=== PATIENT | female | born 1960 | race Caucasian/White ===

== ENCOUNTER 2024-11-26 18:15 | Inpatient (IN) | payer MEDICARE, BC, SELFPAY ==
[2024-11-26] VITALS (8 sets, daily range): BP systolic 125–162; BP diastolic 75–92; BMI 15.9; BMI 14.7
--- NOTE | 2024-11-26 13:42 | ED.GENMED ---
History of Present Illness
General
Chief Complaint: Breathing Problem
Source: patient and family
Time Seen by Provider: 11/26/24 13:23
History of Present Illness
History of Present Illness:
64-year-old female who presents emergency department with reports of her breathing being 'off' for the last week or so. Patient has a chronic cough which is occasionally productive, no hemoptysis. She also notes a slight sore throat but denies ear
pain, rhinorrhea, fever, chills. She also notes the recent gradual development of difficulty swallowing such that she is eating her food while also drinking water to help swallow. She denies abdominal pain, nausea, vomiting, back pain. She does
note that she feels generally weak. Patient lives in the [facility], and a neighbor reportedly called patient's sister who lives in this area stating that the patient 'looks worse'. For this reason, patient was brought to the [facility]
last night. Given concerns regarding her breathing, she was first brought to an urgent care today and then referred to the emergency department. Patient describes a longstanding history of smoking, and describes a nicotine patch as 'bullshit'.
She is very reluctant/refusing to stay in the hospital.
Past History
Past History
ED Past Medical History: CVA (TIA x2 within the past 2 weeks.) and Other (Lung cancer, brain cancer, chronic pain, seizure, sacral wound)
ED Past Surgical History: Orthopedic and Other (Brain tumor removal)
Social History
Tobacco: Smoker
Alcohol: Occasional
Drug: None
Living: alone
Employment: Not employed
Family History
Family History: Other (Noncontributory)
Phy Exam
Physical Exam
Physical Exam:
GENERAL: Alert , in no apparent distress, very thin/cachectic
EYE: pupils equal and reactive
NECK: Supple, no significant adenopathy.
ENT: o/p clr, mmm.
CARDIAC: Regular rate and rhythm .
LUNGS: Equal breath sounds bilaterally, no acute respiratory distress, nasal cannula in place, diffuse wheezing with associated rhonchi
ABDOMEN: Soft, without focal tenderness, no r/g, no cvat
NEUROLOGICAL: Alert and oriented, no focal neuro deficits
SKIN: Warm and dry, skin intact.
MUSCULOSKELETAL: No edema, well perfused.
PSYCH: Normal and appropriate interaction.
Scores
Heart Failure Risk
Heart Failure Risk Score: Not Applicable
Course
Orders/Labs/Results
Orders:
Orders
11/26/24 13:40
Cardiac Monitoring- Treatment ONCE
11/26/24 13:41
Electrocardiogram (*1) Stat
Reason for Study: Other
Other Reason for Exam: pneumonia
EKG- Treatment ONCE
CR Chest - 2 Views Urgent
Comment:
Reason For Exam: hx lung ca,now cough/hypoxia
11/26/24 13:45
Dexamethasone Sod Phosphate [Decadron] 10 mg IV NOW STA
Ipratropium/Albuterol Sulfate [Duoneb] 3 ml INH R NOW STA
11/26/24 13:57
COVID-19 Antigen Urgent
Source: Nasal Swab
Complete Blood Count/No Diff Urgent
Comprehensive Metabolic Panel Urgent
NT-proBNP Urgent
Troponin I Urgent
Blood Culture Q30M
MAGALIE Source: Blood/Venous
Specimen Description:
Influenza A+B Rapid Molecular Urgent
MAGALIE Source: Nasal Swab
Specimen Description:
11/26/24 Dinner
Regular
At Your Request: Non-Participating
Oral Supplement (If unsure of flavor order apple or vanilla): Ensure [place]
Supplement Frequency: Daily
11/26/24 15:10
Blood Culture Q30M
MAGALIE Source: Blood/Venous
Specimen Description:
11/26/24 15:20
Arterial Blood Gas Urgent
11/26/24 16:51
Ampicillin/Sulbactam 3 G [Unasyn] 3 gm 0.9% Sodium Chloride 100 ml [Nss] 100 ml IV NOW
11/26/24 17:54
Admit/Transfer Patient As Directed
Co-Sign Provider:
Level of Care: Inpatient admission
Assign to:: Medical/Surgical
Physician / Group: Rhett Paige
Diagnosis: COPD exacerbation, hypoxia
Reason for Hospitalization: COPD exacerbation, hypoxia
Expected length of stay greater than two midnights?: Yes
ELOS- Estimated Length of Stay in days: 3
I certify the patient meets the requirements for IP care: Yes
PRN Pain Medication Management As Directed
May give lesser potent ordered pain med per pt: Yes
preference::
Protocol:: Medication orders for pain may be administered in a
manner that supports deferring to patient preference
when the pt is:
- Requesting an ordered lesser potent pain medication.
Least to most potent pain medications are defined
as: acetaminophen < NSAID < tramadol < opioids
(morphine, oxycodone, hydromorphone).
- Requesting a lesser dose of the same medication IF
ORDERED.
- Requesting a less intrusive route of administration
if both routes are prescribed by the provider (PO <
IV).
11/26/24 17:56
Code Status As Directed
Resuscitation Status: Do not resuscitate
Reached after discussion with pt or family/Healthcare POA: Yes
Decision communicated with: patient and sister
DNR Bracelet Application ONCE
11/26/24 19:38
Albuterol [ProAIR HFA INHALER] 2 puff INH R Q6HPRN PRN sob
Enoxaparin Sodium [Lovenox] 40 mg SC QPM
Ipratropium/Albuterol Sulfate [Duoneb] 3 ml INH R Q4HPRN PRN
Oxycodone [Roxicodone] 10 mg PO Q6HPRN PRN severe pain
11/26/24 19:38
CARDIOLOGY CONSULT Routine
Consulting Provider: Kieran Colby
Was physician already notified: Yes
PULMONARY CONSULT Routine
Consulting Provider: Christian Sullivan
Was physician already notified: Yes
Activity As Directed
Activity Level: As Tolerated
Intake/ Output As Directed
Frequency: Per unit guidelines
Vital Signs As Directed
Frequency: Per unit guidelines
Weight As Directed
Frequency: Once
Comment: on admission
Copd Education [RESP] Routine
O2 Therapy [RESP] Routine
Titrate/Wean O2 to maintain O2 sat greater than (%): 93
Special Instructions: adjust, if necessary, to avoid hyperoxia in CO2 retainers.
Use High Flow O2 if necessary
Ot Eval And Treat Routine
Pt Eval And Treat Routine
Activity Level: As Tolerated
DX Deep Vein Thrombosis Video Routine
11/26/24 20:00
Ipratropium/Albuterol Sulfate [Duoneb] 3 ml INH R QID
Pregabalin [Lyrica] 50 mg PO BID
11/26/24 20:14
Troponin I Q6H
11/26/24 21:00
Divalproex Delayed Rel. 12 Hr [Depakote (12 Hr Release)] 500 mg PO BID
11/26/24 22:00
Alprazolam [Xanax] 0.5 mg PO QID
MethylPREDNISolone PF [Solu-Medrol Pf] 40 mg IV Q12H
Tizanidine [Zanaflex] 4 mg PO HS
Trazodone [Desyrel] 150 mg PO HS
11/27/24 01:46
Troponin I Q6H
11/27/24 07:49
Basic Metabolic Panel IN AM
Complete Blood Count/With Diff IN AM
Troponin I Q6H
11/27/24 08:00
Duloxetine Delayed Release [Cymbalta Delayed Release] 20 mg PO DAILY
Duloxetine Delayed Release [Cymbalta Delayed Release] 60 mg PO DAILY
Megestrol [Megace Oral Suspension] 200 mg PO DAILY
Abnormal Lab Results
11/26/24 11/26/24
13:57 15:20
WBC 13.1 H 10^3/uL
(4.8-10.8)
MCHC 31.9 L g/dL
(33.0-37.0)
RDW 17.8 H %
(11.5-14.5)
pCO2 53 H mmHg
(32-35)
pO2 65 L mmHg
(83-108)
HCO3 32.1 H mmol/L
(21-28)
Sodium 132 L mmol/L
(135-145)
Chloride 92 L mmol/L
(98-107)
Carbon Dioxide 33 H mmol/L
(22-30)
BUN 29 H mg/dl
(7-17)
Glucose 111 H mg/dl
(70-99)
Troponin I 0.216 H* ng/ml
11/26/24 13:57
11/26/24 13:57
Vital Signs
Initial and Last Documented VS:
Initial Vital Signs
Pulse Resp BP Pulse Ox
104 16 125/75 66
11/26/24 12:55 11/26/24 12:55 11/26/24 12:55 11/26/24 12:55
Last Documented Vital Signs
Temp Pulse Resp BP Pulse Ox
97.7 F 95 18 102/63 93
11/27/24 15:42 11/27/24 16:14 11/27/24 15:42 11/27/24 16:14 11/27/24 17:00
*Pulse Oximetry
SaO2: 90
Nasal Cannula flow liters per minute: 4
Oxygen Mode of Delivery: Room air
Patient hypoxic: yes
*Critical Care Note
Total Time (30-74mins, 75-104mins- exclusive of procedures): 30
Update Note
Update Note:
Patient presents to the Emergency Department with 'breathing off and
Number and Complexity of Problems Addressed at the Encounter
� Chronic conditions affecting care:
� Acute Exacerbation and/or Progression of Chronic Illness:
� Differential Diagnosis includes: But not limited to COVID, flu, pneumonia, bronchitis, COPD exacerbation, ACS, heart failure, etc. etc.
Amount and/or Complexity of Data to be Reviewed and Analyzed
� I performed an independent evaluation of and my interpretation is:
EKG: Normal sinus rhythm, normal rate, normal axis, T wave inversions noted anteriorly
CT:
Xrays: Suspect bi lateral infiltrates (read by me), radioogy read: There are vertical linear densities within the medial aspect of both lungs and there appears to be slight retraction of the left hilar shadow superiorly.
Findings would be suggestive of changes of radiation therapy, and please correlate clinically.
There is mild blunting of the lateral and posterior costophrenic angles bilaterally, suggesting small bilateral pleural effusions.
Parenchymal opacity within the left lower lung, with main differential considerations of atelectasis and/or pneumonia.
Cardiac silhouette size is probably within normal limits, with no convincing evidence for pulmonary edema pattern.
Calcification and tortuosity of the thoracic aorta.
Multiple compression deformities within the upper to mid thoracic spine, somewhat poor endplate definition on the lateral radiograph.
Laboratory Studies: Troponin elevation noted, nonspecific leukocytosis
Other:
� Review of other/old records reveals:
� Clinical information was obtained by an independent historian: Sister who is bedside and is going to retrieve her medication list
� Prescriptions/Medications Considered but not given:
� Further testing considered but not performed:
Risk of Complications and/or Morbidity or Mortality of Patient Management
� Social determinants of health affecting care:
� Discussion with other providers (PCP, Hospitalists, Consultants, etc):
� Escalation of care including admission/observation vs risk of discharge considered: Patient remained stable on nasal cannula here. Suspect pneumonia with associated COPD exacerbation. BNP is elevated however she does not have
orthopnea, PND, lower extremity edema. Chest x-ray is challenging to interpret. Will hold on Lasix at this time. Antibiotics ordered, hospitalist aware. I do have suspicion for aspiration given her difficulty swallowing and will cover
accordingly.
Of note, considerable tie spent with patient and sister, both privately and together, regarding her want to have a cigarette before agreeing to be admitted...and ulitmately trying to reinforce import of admission, etc. etc. She ultimately agreed.
ED Attending Note
-
Portions of this chart may have been created with voice recognition software.� Occasional wrong word or��sound alike� substitutions may have occurred due to the inherent limitations of voice recognition software.
Discharge Plan
Departure
Patient Disposition: Admit
Date of Disposition: 11/26/24
Time of Disposition: 16:45
Admit to: Telemetry
Presentation/result/management discussed w/ accepting MD/DO: Hospitalist
Discharge Problem:
Hypoxia
Interventions
Interventions:
*Risk Screen - Suicide Last Done: 11/26/24 19:44
*General Assessment Last Done: 11/26/24 15:50
*Neglect/Abuse Screening Last Done: 11/26/24 12:55
*ED COVID-19 Vaccine History Last Done: 11/26/24 19:44
*Nursing Disposition Last Done: 11/26/24 19:55
ED- Cardiac Assessment Last Done: 11/26/24 13:40
ED- Pulmonary Assessment Last Done: 11/26/24 13:41
Discharge Date and Time
Discharge Date/Time: 11/26/24 19:56
[2024-11-26 14:04] LABS: Hematocrit 40.1 % (37.0-47.0); Hemoglobin 12.8 g/dL (12.0-16.0); Mean Corp Hgb Conc. 31.9 g/dL (33.0-37.0); Mean Corpuscular Volume 91.3 fL (81.0-99.0); Platelet Count 223 10^3/uL (130-400); Red Cell Dist. Width 17.8 % (11.5-14.5)
[2024-11-26 14:26] LABS: ALT (SGPT) 11 U/L (0-35); AST (SGOT) 20 U/L (14-36); Albumin 4.2 g/dl (3.5-5.0); Alkaline Phosphatase 55 U/L (38-126); Blood Urea Nitrogen 29 mg/dl (7-17); COVID-19 Antigen Negative (Negative); Calcium 8.7 mg/dl (8.4-10.2); Carbon Dioxide 33 mmol/L (22-30); Chloride 92 mmol/L (98-107); Glucose 111 mg/dl (70-99); Potassium 3.9 mmol/L (3.5-5.1); Sodium 132 mmol/L (135-145); Total Protein 6.7 g/dl (6.3-8.2); eGFR > 60.00
[2024-11-26 14:33] LABS: Troponin I 0.216 ng/ml
[2024-11-26] MEDS: DECADRON 10 MG IV (14:34)
[2024-11-26] MEDS: DUONEB 3 ML INH ×2 (14:35→20:54)
[2024-11-26 15:29] LABS: B.E. 5.8 mmol/L; HCO3 32.1 mmol/L (21-28); O2 Saturation % 97.2 % (94-98); PCO2 53 mmHg (32-35); PO2 65 mmHg (83-108)
--- NOTE | 2024-11-26 17:14 | HPS.HSE ---
Family Physician
-
Family Physician: * NONE
Chief Complaint
-
shortness of breath
History of Present Illness
Patient is a 64-year-old female with past medical history significant for depression/anxiety, chronic pain, seizure, CVA, Hx lung cancer and Hx brain cancer who presented to [facility] ED for evaluation of shortness of breath and cough for past week.
Patient reports that breathing has been off for approximately a week, sister (at bedside) feels it has been off for a longer period of time. Patient reports an associated productive cough. Patient neighbor in [place] brought patient to her sisters
house last evening for appearing worse than her baseline. She was taken to urgent care earlier today who referred her to ED for evaluation and treatment. Patient presented hypoxic on room air, requiring 4 Liters NC. She denies any recent fever,
chills, chest pain, nausea, vomting, constipation, diarrhea or urinary symptoms.
Medical History
Past Medical History
Past Medical History: Reports Other
Additional Past Medical History:
depression/anxiety
chronic pain
seizure
CVA
Hx lung cancer
Hx brain cancer
Past Surgical History: Reports Other
Additional Past Surgical History:
brain tumor extraction
Social History
Tobacco: Smoker (0.5 pack per day for many years )
Alcohol: None
Drug: None
Living: Alone
Employment: Retired
Family History
Family History: Not pertinent
Allergies / Home Medications
Allergies reflects when Allergies were last updated in [employer].
Home Medications with original date entered in [employer]
Allergy/Medication List:
Allergies
Allergy/AdvReac Type Severity Reaction Status Date / Time
codeine Allergy Unknown Verified 11/26/24 12:57
Home Medications
albuterol sulfate 90 mcg/actuation aerosol inhaler 2 puff inhalation R Q6HPRN PRN sob 11/26/24
alprazolam 0.5 mg tablet (Xanax) 0.5 mg PO QID 11/26/24
divalproex 125 mg capsule,delayed release sprinkle 500 mg PO BID 11/26/24
duloxetine 20 mg capsule,delayed release 20 mg PO DAILY with 60mg 11/26/24
duloxetine 60 mg capsule,delayed release 60 mg PO DAILY 11/26/24
megestrol 400 mg/10 mL (40 mg/mL) oral suspension 200 mg PO DAILY 11/26/24
oxycodone 10 mg tablet 10 mg PO Q6HPRN PRN severe pain 11/26/24
pregabalin 50 mg capsule (Lyrica) 50 mg PO BID 11/26/24
tizanidine 4 mg tablet 4 mg PO HS 11/26/24
trazodone 150 mg tablet 150 mg PO HS 11/26/24
Review of Systems
-
History Source: Patient
Constitutional: Reports No Symptoms
EENT: Reports No Symptoms
Respiratory: Reports Cough (productive ) and Trouble Breathing (shortness of breath )
Cardiac: Reports No Symptoms
Abdomen/GI: Reports Anorexia
: Reports No Symptoms
Musculoskeletal: Reports No Symptoms
Skin: Reports No Symptoms
Neurological: Reports No Symptoms
Endocrine: Reports No Symptoms
Hematologic/Lymphatic: Reports No Symptoms
Psych: Reports No Symptoms
Physical Exam
Vital Signs
Vital Signs
Pulse Resp BP Pulse Ox
96 23 132/81 91
11/26/24 15:45 11/26/24 15:45 11/26/24 14:00 11/26/24 15:45
Physical Exam
General: Conversant, Appears Chronically Ill and Cachectic
HEENT: NormoCephalic and Atraumatic
Respiratory: Wheezes, Rhonchi and Decreased Breath Sounds
Cardiac: S1/S2 and Regular Rhythm; No Murmur, Rub or Gallop
GI: Soft, Non Tender, Non Distended and Normal Bowel Sounds
Rectal: Deferred by Provider
Musculoskeletal: No Clubbing, No Cyanosis and No Edema
Skin: Warm, Dry and IV/Catheter Site
Neuro: AO x 3 and Nonfocal/grossly intact
Psych: Calm
Laboratory Results
-
11/26/24 13:57
11/26/24 13:57
Laboratory Results
pH 7.39 (7.35-7.45) 11/26/24 15:20
pCO2 53 mmHg (32-35) H 11/26/24 15:20
pO2 65 mmHg (83-108) L 11/26/24 15:20
HCO3 32.1 mmol/L (21-28) H 11/26/24 15:20
Total Bilirubin 0.7 mg/dl (0.2-1.3) 11/26/24 13:57
AST 20 U/L (14-36) 11/26/24 13:57
ALT 11 U/L (0-35) 11/26/24 13:57
Alkaline Phosphatase 55 U/L (38-126) 11/26/24 13:57
Troponin I 0.216 ng/ml H* 11/26/24 13:57
Data Reviewed
-
Diagnostic Radiology: Report Reviewed by me (CXR: With no recent comparison examination available, limited evaluation in this patient with a history of lung cancer, and possible previous treatment.)
Medical Tests (Nuc Med, Echo, EKG etc): Report Reviewed by me (EKG: NORMAL SINUS RHYTHM ANTERIOR INFARCT, AGE UNDETERMINED)
Lab Data: Labs Reviewed by me
Impression/Plan
-
IMPRESSION/PLAN:
#COPD exacerbation
CXR: With no recent comparison examination available, limited evaluation in this patient with a history of lung cancer, and possible previous treatment.
EKG: NORMAL SINUS RHYTHM
ANTERIOR INFARCT , AGE UNDETERMINED
- Admit to med/surg
- Consult Pulmonary
- DuoNeb QID and PRN
- Solu-Medrol 40mg BID
- O2
#depression/anxiety
- continue alprazolam, duloxetine and trazodone
#chronic pain
- continue pregabalin, PRN oxycodone and tizanidine
#seizure
- continue divalproex
#Hx lung cancer
#Hx brain cancer
- continue megestrol
#CVA
Code status: DNR
DVT prophylaxis: lovenox sq
--- NOTE | 2024-11-26 17:36 | W.PN.UPDATE ---
Addendum entered and electronically signed by Rhett Paige MD 11/26/24 18:11:
Addendum
Positive troponin, EKG nonspecific changes. Likely troponin elevation secondary to hypoxia, no recent EKG to compare. Patient complains of shortness of breath but no specific chest pain. Will trend troponin and consult cardiology
Monitor on telemetry
End
Original Note:
Update Note
Progress Note Update
I saw and examined the patient.
The PATIENT ACCOUNT REPRESENTATIVE or PA's note was reviewed and I agree with the note.
Comment:
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 Patient was found hypoxic. Patient continues to smoke cigarettes. She has COPD and lung cancer history. She does not check her oxygen pulse.
No nausea or vomiting. No chest pain. Patient reports chronic pain with narcotic dependence. She was also noted to have pressure sacral deep tissue injury upon arrival. Patient lives alone and unable to care for herself or cook leading to weight
loss.
Patient lives in [facility]. Her sister lives in this area and brought her locally to care for her.
Patient has history of brain cancer and lung cancer, both in remission.
Physical Exam
GENERAL: Alert , in no apparent distress, very thin/cachectic
EYE: pupils equal and reactive
NECK: Supple, no significant adenopathy.
ENT: o/p clr, mmm.
CARDIAC: S1, S2 regular rate and rhythm .
LUNGS: Equal breath sounds bilaterally, no acute respiratory distress, nasal cannula in place, diffuse wheezing with associated rhonchi
ABDOMEN: Soft, without focal tenderness, no r/g, no cvat
NEUROLOGICAL: Alert and oriented, no focal neuro deficits
SKIN: Warm and dry, skin intact.
MUSCULOSKELETAL: No edema, well perfused. Significant diffuse muscle atrophy.
PSYCH: Normal and appropriate interaction.
Assessment and plan
#Acute hypoxic respiratory failure. SaO2 around 60-70 upon arrival, improved with oxygen supplementation/nebulizer treatment/intravenous steroid.
Likely will need home O2
Continue with bronchodilator therapy ATC and PRN, systemic steroid
Sputum culture is possible
# Acute COPD exacerbation due to continued tobacco use
Start the patient on DuoNeb nebulizer [id number] and as needed
Continue with IV steroid
GI prophylaxis with PPI
Short course of antibiotic due to leukocytosis, will do blood culture, patient denies fever or chills
# Stage II pressure sacral deep tissue injury
Consult wound care
Barrier cream/foam
Change position and use cushion to relieve pressure
# Severe protein calorie malnutrition
Gait dysfunction
Muscle wasting
Patient has chronic illness, lives alone in [facility] and unable to care for self
Consulted nutrition
Consulted manager of case management.
#Hyponatremia. No confusion
Mild
# Chronic pain syndrome with narcotic dependence
# Chronic anxiety disorder with benzodiazepine dependency
# History of brain cancer s/p resection. In remission.
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
# DVT prophylaxis
Total time spent to see the patient, examine the patient, review data and lab results, discuss treatment plan with patient and her sister, ER doctor, nursing staff around 75 minutes
[2024-11-26] MEDS: UNASYN IV (18:21)
[2024-11-26 20:54] LABS: Troponin I 0.245 ng/ml
[2024-11-26] MEDS: MEGACE ORAL SUSPENSION 200 MG PO (21:08)
[2024-11-26] MEDS: SOLU-MEDROL PF 40 MG IV (21:13)
[2024-11-26] MEDS: XANAX 0.5 MG PO (21:13)
[2024-11-26] MEDS: ZANAFLEX 4 MG PO (21:13)
[2024-11-26] MEDS: DEPAKOTE (12 HR RELEASE) 500 MG PO (21:13)
[2024-11-26] MEDS: LYRICA 50 MG PO (21:13)
[2024-11-26] MEDS: DESYREL 150 MG PO (21:13)
[2024-11-26] MEDS: LOVENOX 40 MG SC (21:15)
[2024-11-26] MEDS: ROXICODONE 10 MG PO (21:21)
[2024-11-27] VITALS (9 sets, daily range): BP systolic 102–172; BP diastolic 63–104; PULSE 94–96; O2SAT 92; BMI 14.6
[2024-11-27] MEDS: DUONEB 3 ML INH ×5 (00:34→19:41)
--- NOTE | 2024-11-27 01:49 | PTCARENOTE ---
Pts pulse ox after treatment 90-93% on 3 L. House CRYSTAL GROWER aware, no new orders at this time.
Awoke pt at 0025. Pts pulse ox 88-91% 4 L on ear, pt drowsy, confused. Pt stating SOB. Pt previously administered xanax and roxycodone at 2120. Increased O2 6L, respiratory notified for treatment. Bed alarm placed. House CRYSTAL GROWER to floor to evaluate.
[2024-11-27 02:48] LABS: Troponin I 0.225 ng/ml
[2024-11-27] MEDS: CYMBALTA DELAYED RELEASE 60 MG PO (07:34)
[2024-11-27] MEDS: XANAX 0.5 MG PO ×4 (07:34→22:20)
[2024-11-27] MEDS: CYMBALTA DELAYED RELEASE 20 MG PO (07:34)
[2024-11-27] MEDS: PROTONIX 40 MG PO (07:34)
[2024-11-27] MEDS: LYRICA 50 MG PO ×2 (07:34→20:26)
[2024-11-27] MEDS: DEPAKOTE (12 HR RELEASE) 500 MG PO ×2 (07:34→20:26)
[2024-11-27 07:55] LABS: Hematocrit 41.9 % (37.0-47.0); Hemoglobin 13.9 g/dL (12.0-16.0); Mean Corp Hgb Conc. 33.2 g/dL (33.0-37.0); Mean Corpuscular Volume 87.5 fL (81.0-99.0); Nucleated Red Blood Cells % 0 %; Platelet Count 248 10^3/uL (130-400); Red Cell Dist. Width 17.9 % (11.5-14.5)
[2024-11-27 08:35] LABS: Blood Urea Nitrogen 27 mg/dl (7-17); Calcium 8.9 mg/dl (8.4-10.2); Carbon Dioxide 30 mmol/L (22-30); Chloride 95 mmol/L (98-107); Estimated Creatinine Clearance 58 ml/min; Glucose 119 mg/dl (70-99); Potassium 4.3 mmol/L (3.5-5.1); Sodium 132 mmol/L (135-145); eGFR > 60.00
[2024-11-27] MEDS: ROXICODONE 10 MG PO ×2 (08:35→20:33)
[2024-11-27 08:36] LABS: Troponin I 0.161 ng/ml
--- NOTE | 2024-11-27 09:02 | W.PN.HOSP.TC ---
Addendum entered and electronically signed by Rhett Paige MD 11/27/24 11:49:
Addendum
I reviewed ABG, seems acute on chronic hypercapnic and hypoxic respiratory failure.
End
Original Note:
Today's Communication/Plan
-
Wants to go home later today or tomorrow but seems to settle for now. ( no dc today). Was told to sign AMA if insists
Add IV Abx
Might need CT chest , will d/w pulmonary
c/w Steroid, Nebs
Finger SaO2 reading might be not very Accurate?
bilingual account manager consult
Wound care consult
Assessment / Plan
Assessment / Plan
Physical Exam
GENERAL: Alert , in no apparent distress, very thin/cachectic
EYE: pupils equal and reactive
NECK: Supple, no significant adenopathy.
ENT: o/p clr, mmm.
CARDIAC: S1, S2 regular rate and rhythm .
LUNGS: Equal breath sounds bilaterally, no acute respiratory distress, nasal cannula in place, diffuse wheezing with associated rhonchi
ABDOMEN: Soft, without focal tenderness, no r/g, no cvat
NEUROLOGICAL: Alert and oriented, no focal neuro deficits
SKIN: Warm and dry, skin intact.
MUSCULOSKELETAL: No edema, well perfused. Significant diffuse muscle atrophy.
PSYCH: Normal and appropriate interaction.
Assessment and plan
#Acute hypoxic respiratory failure. SaO2 around 60-70 upon arrival, improved with oxygen supplementation/nebulizer treatment/intravenous steroid.
Likely will need home O2
Continue with bronchodilator therapy ATC and PRN, systemic steroid
Sputum culture is possible
Add Nicotine patch
# Acute COPD exacerbation due to continued tobacco use
Start the patient on DuoNeb nebulizer [id number] and as needed
Continue with IV steroid
GI prophylaxis with PPI
CAn consider CT chest, will d/w pulmonary
Short course of antibiotic due to leukocytosis, will do blood culture, patient denies fever or chills
# Positive troponin, EKG nonspecific changes. Likely non ischemic troponin elevation secondary to hypoxia, no recent EKG to compare. Patient complains of shortness of breath but no specific chest pain. Troponin went down.
Appreciate cardiology
Can add low dose Aspirin
Echo to consider. No signs of CHF on exam.
Monitor on telemetry
# Stage II pressure sacral deep tissue injury
Consult wound care
Barrier cream/foam
Change position and use cushion to relieve pressure
# Severe protein calorie malnutrition
Gait dysfunction
Muscle wasting
Patient has chronic illness, lives alone in [facility] and unable to care for self
Consulted nutrition
Consulted director of casework.
#Hyponatremia. No confusion
Mild
# Constipation
Abdomen is soft, non tender
will do MiraLAX, PRN Senna
# Chronic pain syndrome with narcotic dependence
# Chronic anxiety disorder with benzodiazepine dependency
# History of brain cancer s/p resection. In remission.
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
# DVT prophylaxis
Total time spent to see the patient, examine the patient, review data and lab results, discuss treatment plan with patient, nursing staff around 55 minutes
Anticipated Discharge: 24 - 48 hours
Subjective/Interval History
-
Date of Service: November 27, 2024
No SOB
Wants oxycodone for chronic pain
Reported constipation
Wants to go home but seems to settle for now
Objective Data
-
Labs:
Laboratory Results
11/27/24
07:49
WBC 10.9 H
Hgb 13.9
Hct 41.9
Plt Count 248
Sodium 132 L
Potassium 4.3
Chloride 95 L
Carbon Dioxide 30
BUN 27 H
Creatinine 0.5 L
Glucose 119 H
Calcium 8.9
Vital Signs:
Vital Signs
Temp Pulse Resp BP Pulse Ox
97.6 F 89 18 172/104 93
11/27/24 07:42 11/27/24 07:42 11/27/24 07:42 11/27/24 07:42 11/27/24 07:42
I&O
11/26/24 11/27/24 11/28/24
06:59 06:59 06:59
Intake Total 120 / 120
Balance 120 / 120
[2024-11-27] MEDS: MIRALAX 17 GRAMS PO (09:14)
[2024-11-27] MEDS: NICODERM TRANSDERMAL 14 MG TRANSDERM (09:14)
[2024-11-27] MEDS: SOLU-MEDROL PF 40 MG IV ×2 (09:15→22:20)
[2024-11-27] MEDS: UNASYN IV ×3 (09:54→22:11)
--- NOTE | 2024-11-27 10:17 | CON.PUL ---
Consultation
Consultation Request
Date/Time Consultation Requested: 11/27/2024-7:30 AM
Date/Time Consultation Performed: 11/27/2024-8 AM
Requesting Provider: hospitalist
Performing Provider: Dr. Georges
Reason for Consultation: Shortness of breath
Medical History
-
Chief Complaint: Shortness of breath
History of Present Illness:
64-year-old smoking female with underlying suspected COPD, depression, anxiety, chronic pain, CVA, and previous lung cancer presented with increasing shortness of breath felt to have COPD exacerbation-pulmonary consulted for shortness of breath/COPD
exacerbation 11/27/2024. Patient continues to have significant shortness of breath with minimal exertion. She is not on home oxygen. She continues to smoke half pack of cigarettes daily. She denies any chest pain, chest tightness, pleurisy, chest
congestion, productive cough, abdominal pain, nausea, lower extremity swelling or weakness.
Past Medical History
Past Medical History: None (Cigarette smoker. COPD. History of lung cancer. History of brain cancer. Depression/anxiety. Chronic pain. History of CVA. Seizure disorder.)
Social History
Tobacco: Smoker ([id number] smoker-still smoking half pack of cigarettes daily)
Alcohol: None
Drug: None
Personal: Single
Occupational Exposures: No known asbestos exposure
Environmental Exposures: No known tuberculosis exposure
Family History
Family History: Reviewed & Not Pertinent
Allergies / Home Medications
Allergies
Allergy/AdvReac Type Severity Reaction Status Date / Time
codeine Allergy Unknown Verified 11/26/24 12:57
Home Medications
�Medication �Instructions �Recorded �Confirmed �Last Taken �Type
albuterol sulfate 90 mcg/actuation 2 puff inhalation R Q6HPRN PRN sob 11/26/24 11/26/24 Unknown History
aerosol inhaler
alprazolam 0.5 mg tablet (Xanax) 0.5 mg PO QID Mental Health/Anxiety 11/26/24 11/26/24 11/25/24 History
divalproex 125 mg capsule,delayed 500 mg PO BID Neurological 11/26/24 11/26/24 11/25/24 History
release sprinkle Condition
duloxetine 20 mg capsule,delayed 20 mg PO DAILY with 60mg 11/26/24 11/26/24 11/25/24 History
release
duloxetine 60 mg capsule,delayed 60 mg PO DAILY Depression 11/26/24 11/26/24 11/25/24 History
release
megestrol 400 mg/10 mL (40 mg/mL) 200 mg PO DAILY Hormonal Agent 11/26/24 11/26/24 11/25/24 History
oral suspension
oxycodone 10 mg tablet 10 mg PO Q6HPRN PRN severe pain 11/26/24 11/26/24 Unknown History
pregabalin 50 mg capsule (Lyrica) 50 mg PO BID Neurological Condition 11/26/24 11/26/24 11/25/24 History
tizanidine 4 mg tablet 4 mg PO HS Muscle Spasms 11/26/24 11/26/24 11/25/24 History
trazodone 150 mg tablet 150 mg PO HS Sleep 11/26/24 11/26/24 11/25/24 History
Review of Systems
-
Unable to Obtain full review of systems at this time due to: Other ( Per HPI)
Vitals / Labs / Diagnostic Testing
Vital Signs
Temp Pulse Resp BP Pulse Ox
97.6 F 89 18 172/104 93
11/27/24 07:42 11/27/24 07:42 11/27/24 07:42 11/27/24 07:42 11/27/24 07:42
Lab Data
11/27/24 07:49
11/27/24 07:49
Laboratory Results
11/26/24 11/26/24
14:38 15:20
pH Cancelled 7.39
pCO2 Cancelled 53 H
pO2 Cancelled 65 L
HCO3 Cancelled 32.1 H
O2 Delivery Level Cancelled
Microbiology
11/26/24 13:57 Nasal Swab Influenza Types A & B (PATRICK) - Final
Negative for Influenza A & B, NAAT
Negative results must be combined with clinical observations
and patient history.
Nucleic Acid Amplification test (NAAT)performed on the
[employer] platform.
Diagnostic Testing:
Physical Exam
-
Exam:
Well-nourished and well-developed in no apparent distress
HEENT-atraumatic, normocephalic, temporal wasting
Neck-supple, no JVD, no bruit
Heart-regular rate and rhythm-no murmurs, rubs or gallops
Chest with diminished breath sounds, prolonged expiratory time, no wheezes or crackles
Back without tenderness
Abdomen-soft, nontender, nondistended, no hepatosplenomegaly
Extremities-no cyanosis, clubbing, edema and good peripheral pulses
Integument-intact, no rashes, lesions or ecchymosis
Neurology-alert and oriented, nonfocal motor and sensory exam
Assessment
-
64-year-old smoking female with underlying suspected COPD, depression, anxiety, chronic pain, CVA, and previous lung cancer presented with increasing shortness of breath felt to have COPD exacerbation-pulmonary consulted for shortness of breath/COPD
exacerbation 11/27/2024
COPD with acute exacerbation
Leukocytosis
Chronic hypercapnia-ABG 11/26/2024--53/65/7.39
Mild hyperglycemia
Mild hyponatremia
Conditions present prior to admission:
Cigarette smoker.
COPD.
History of lung cancer.
History of brain cancer.
Depression/anxiety.
Chronic pain.
History of CVA.
Seizure disorder.
Plan
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
Will attempt to obtain more information about history of lung cancer and treatment
Patient requires admission for severe COPD exacerbation and respiratory failure
Supplemental oxygen as needed
Consider ABG
BiPAP if needed
Duonebs
Pulmicort nebulizers
Mucolytic's
Steroids-methylprednisolone 40 mg IV every 12 hours
Incentive spirometry
Acapella
Consider vest if difficulties mobilizing secretions
Consider chest physiotherapy if difficulties mobilizing secretions
Check spirometry
Check cultures
Empiric antibiotics if acute bacterial bronchitis or acute bacterial lower respiratory tree infection is suspected-ampicillin initiated
Consider Procalcitonin level if unsure whether acute respiratory tract bacterial infection exists-caveat may be negative with atypical infections
Monitor leukocytosis
Monitor blood sugars
Insulin supplementation as needed
Smoking cessation counseling ongoing
Nicotine patch
DVT prophylaxis-on Lovenox
GI prophylaxis recommended if on steroids for prolonged period-on pantoprazole
Early nutrition
Early mobilization
Reviewed with nursing
Would benefit from triple inhaler therapy such as Trelegy or Breztri at time of discharge
Outpatient pulmonary nsxioa-mm-HSGd, inhalers, pulmonary rehab, smoking cessation counseling, low-dose lung cancer screening CT, etc.
Diagnostic data:
Chest x-ray 06/30/2013-NAD
Chest x-ray 11/26/2024-mild blunting lateral and posterior costophrenic angles bilaterally suggesting small bilateral pleural effusions
Data Reviewed
-
EKG: Report reviewed by me
Radiology: Report reviewed by me
CT Scan: Report reviewed by me
Ultrasound: Image personally visualized and interpreted
Medical Tests (Nuc Med, Echo etc): Report reviewed by me
Labs: Labs reviewed by me
Old Records: Reviewed
Total Time Spent with Patient (in minutes): 65
--- NOTE | 2024-11-27 10:29 | CON.CAR ---
Addendum entered and electronically signed by Brenda Cabello MD 11/27/24 15:48:
I saw and examined the patient.
The Nutritional Services Cook's note was reviewed and I agree with the note.
Comment: General: Frail
Heart: Distant heart sounds, RRR, no murmurs, No S3, S4, no rubs.
Lungs: Coarse anterior breath sounds.
Extremities: No clubbing, cyanosis or edema bilaterally.
Neuro: Awake and pleasant
She has a complicated history. She has a history of CVA, lung cancer in 2017 treated with resection and chemotherapy (unknown) she then recurred with metastatic disease to brain 12/2023 and underwent surgery/radiation and has continued to be
followed at [facility]. She is admitted with shortness of breath and being treated for COPD exacerbation. She is also noted on laboratory testing to have mildly elevated troponin and elevated proBNP although exam is difficult. EKG with mild
waxing and waning abnormalities.
She denies chest pain and shortness of breath is starting to feel better. Rhythm is stable on telemetry. Echocardiogram 11/27/2024 with ejection fraction 59%. Normal RV. Mild to moderate MR. Mild LVH. Mild TR.
Plan at this time from a cardiac point of view:
-Gentle diuresis she was given 1 dose of IV Lasix today. Reassess. Continue to follow blood work.
-Reassess EKG in the morning
-Continue to follow for cardiac symptoms
-Consider outpatient stress testing given mild elevation of troponin in the setting of waxing and waning EKG abnormalities without symptoms of chest pain however presentation with shortness of breath.
-Start 81 mg aspirin
-Check lipids and start statin
- Echo with normal heart function and mild to moderate aortic valve insufficiency.
Hypertension
- Losartan started. Follow.
COPD exacerbation
-Continue treatment
-Oxygen as needed
-Defer to pulmonary and primary service
Oncology follow-up as an outpatient followed at [facility]
Original Note:
Consultation
Consultation Request
Date/Time Consultation Requested: 11/27/2024
Date/Time Consultation Performed: 11/27/2024
Requesting Provider: Dr. Paige
Performing Provider: Keila Aguayo PA-C for Dr. Brenda Cabello
Reason for Consultation: Elevated troponin
Medical History
-
History of Present Illness:
HPI: Manda is a 64-year-old female with past medical history of lung cancer, brain cancer, prior CVA, tobacco abuse, COPD, and seizures. She presented to [facility] ER for evaluation of worsening shortness of breath over the past 2 days. Her sister had
reported that she had seemed off for a longer period of time than that. Also notes productive cough. She was initially evaluated in urgent care and was referred to ER given hypoxia with pulse ox in the 60s to 70s. On arrival to ER, she was placed
on 4 L NC. Denies any chest pain, palpitations, dizziness, lightheadedness, lower extremity edema, or fevers recently. She was admitted with concern for COPD exacerbation and was started on IV steroids as well as antibiotics. Given shortness of
breath, troponin was checked and was found to be elevated at 0.245, trending down thereafter. proBNP also elevated at 5580. She has no known cardiac history and has never been seen by cardiology in the past by report. Feels that breathing is
somewhat improved on O2 and with treatment thus far, but still feels relatively unwell. EKG reviewed, SR with T wave inversions anteriorly, new compared to prior in 2013. Most of her care is provided in [place] which is where she typically
resides.
PMH:
h/o lung cancer
h/o brain cancer
h/o CVA
Tobacco abuse
COPD
Seizures
Past Medical History
Past Medical History: Other (In HPI)
Past Surgical History: Other (Brain tumor resection)
Social History
Tobacco: Smoker
Alcohol: None
Drug: None
Living: Alone
Employment: Retired
Family History
Family History: Reviewed & Not Pertinent
Allergies / Home Medications
Allergy/AdvReac Type Severity Reaction Status Date / Time
codeine Allergy Unknown Verified 11/26/24 12:57
�Medication �Instructions �Recorded �Confirmed �Type
albuterol sulfate 90 mcg/actuation 2 puff inhalation R Q6HPRN PRN sob 11/26/24 11/26/24 History
aerosol inhaler
alprazolam 0.5 mg tablet (Xanax) 0.5 mg PO QID Mental Health/Anxiety 11/26/24 11/26/24 History
divalproex 125 mg capsule,delayed 500 mg PO BID Neurological 11/26/24 11/26/24 History
release sprinkle Condition
duloxetine 20 mg capsule,delayed 20 mg PO DAILY with 60mg 11/26/24 11/26/24 History
release
duloxetine 60 mg capsule,delayed 60 mg PO DAILY Depression 11/26/24 11/26/24 History
release
megestrol 400 mg/10 mL (40 mg/mL) 200 mg PO DAILY Hormonal Agent 11/26/24 11/26/24 History
oral suspension
oxycodone 10 mg tablet 10 mg PO Q6HPRN PRN severe pain 11/26/24 11/26/24 History
pregabalin 50 mg capsule (Lyrica) 50 mg PO BID Neurological Condition 11/26/24 11/26/24 History
tizanidine 4 mg tablet 4 mg PO HS Muscle Spasms 11/26/24 11/26/24 History
trazodone 150 mg tablet 150 mg PO HS Sleep 11/26/24 11/26/24 History
Review of Systems
-
History Source: Patient
All other systems: Negative unless noted
Physical Exam
Vital Signs
Temp Pulse Resp BP Pulse Ox
97.6 F 89 18 172/104 93
11/27/24 07:42 11/27/24 07:42 11/27/24 07:42 11/27/24 07:42 11/27/24 07:42
Lab Results
11/27/24 07:49
11/27/24 07:49
Troponin I 0.161 ng/ml H* D 11/27/24 07:49
Sza-X-Gtkcmzefqml Pept 5580 pg/ml 11/26/24 13:57
Physical Exam
General: No Apparent Distress and Other (Frail-appearing)
HEENT: Normocephalic, Anicteric and Moist Mucous Membranes
Respiratory: Wheezes and Non Labored Respirations
Cardiac: S1/S2 and Regular Rhythm
Musculoskeletal: No Clubbing, No Cyanosis and No Edema
Skin: Warm and Dry
Neuro: AO x 3 and Nonfocal/Grossly Intact
Psych: Calm
Impression / Plan
-
Cardiology: None prior to admission, initially seen by Dr. Brenda Cabello
Impression:
Presented with SOB
COPD exacerbation
Elevated troponin
Concern for acute HF unknown EF
Hyponatremia
h/o lung cancer
h/o brain cancer
h/o CVA
Tobacco abuse
COPD
Seizures
Echo 11/27/2024: Study pending
Plan:
-Presented with shortness of breath and cough. Admitted with COPD exacerbation and elevated troponin.
-EKG reviewed, SR with T wave inversions anteriorly, new compared to prior in 2013. No chest pain. Recheck EKG in AM.
-Troponin peaked at 0.245 and trended down thereafter. No need to continue trending.
-Check echo to assess EF. No prior baseline known.
-Will start aspirin 324 mg now and continue 81 mg daily.
-Check CVE, Hgb A1c in AM. Plan to start statin, no known h/o allergy/ intolerance.
-ProBNP elevated at 5580. Will give a single dose of IV lasix 40mg and assess response.
-Creat stable at 0.5. Follow daily weights, I&Os.
-Likely will need ischemic evaluation this admission. Await echo.
-Continue abx per primary service/pulmonology.
-h/o lung and brain cancer noted. Not currently on treatment.
HPI: Manda is a 64-year-old female with past medical history of lung cancer, brain cancer, prior CVA, tobacco abuse, COPD, and seizures. She presented to [facility] ER for evaluation of worsening shortness of breath over the past 2 days. Her sister had
reported that she had seemed off for a longer period of time than that. Also notes productive cough. She was initially evaluated in urgent care and was referred to ER given hypoxia with pulse ox in the 60s to 70s. On arrival to ER, she was placed
on 4 L NC. Denies any chest pain, palpitations, dizziness, lightheadedness, lower extremity edema, or fevers recently. She was admitted with concern for COPD exacerbation and was started on IV steroids as well as antibiotics. Given shortness of
breath, troponin was checked and was found to be elevated at 0.245, trending down thereafter. proBNP also elevated at 5580. She has no known cardiac history and has never been seen by cardiology in the past by report. Feels that breathing is
somewhat improved on O2 and with treatment thus far, but still feels relatively unwell. EKG reviewed, SR with T wave inversions anteriorly, new compared to prior in 2013. Most of her care is provided in [place] which is where she typically
resides.
Data Reviewed
-
EKG: Tracing Personally Visualized and interpreted
Labs: Labs Reviewed by me
Old Records: Reviewed
[2024-11-27] MEDS: LASIX 40 MG IV (11:45)
[2024-11-27] MEDS: LOW STRENGTH ASPIRIN 324 MG PO (11:45)
--- NOTE | 2024-11-27 13:00 | WOUNDNOTE ---
WO RN note: Patient admitted with SOB
See H&P for complete history.
PMH: COPD, depression/anxiety, chronic pain, seizure, CVA, Hx lung cancer and Hx brain cancer, current tobacco use.
Wound Location and type/assessment: Patient admitted with stage 3 PI to sacral coccyx. Patient reports she sits in recliner at home and can feel the wound. Please see worklist for measurement and details. Patient is able to turn in bed, change
position and ambulate. BMI is 14 and per chart review is currently smoking.
Plan: Spoke to LUIZ Crisostomo regarding plan. Will add static air overlay to bed. Patient currently has an air cushion in chair and an air cushion to off-load sacrum when in bed. Will recommend Honey Gel and a sacral silicone foam dressing to be change Q
48 hours. Andressa to perform wound care and add air overlay when patient gets OOB for AM care. Spoke to patient about continued off-loading of sacrum, as she is able to turn. Patient has several comorbidities including BMI of 14.7 and is currently a
smoker. Wounds may worsen and new wounds may develop even with optimal care.
Updated care plan and will follow as needed.
Note to case management of equipment requested for discharge:
Recommend follow up at wound care center upon discharge.
[2024-11-27] MEDS: DUONEB INH (13:34)
[2024-11-27] MEDS: COZAAR 25 MG PO (16:14)
--- NOTE | 2024-11-27 16:48 | PTOTSP ---
Dysphagia Evaluation
Patient has multiple dysphagia risk factors (i.e., COPD in acute exacerbation, hx brain and lung cancer in remission, severe malnutrition) and CXR 11/26 with LLL atelectasis vs PNA. Patient reported 2 weeks of dysphagia/aspiration symptoms (i.e.,
coughing with liquids, stasis with solids). Consider video swallow study for objective swallowing assessment.
Recommend:
1. Regular, Thin Liquids
2. Medications: crush large pills in puree if medically cleared
3. Strategies: upright to 90 degrees, small single sips/bites with breaks for breathing, alternate sips/bites, cough/reswallow if wet vocal quality noted, remain upright 30 minutes after PO, oral care 3x daily
4. Video swallow to objectively assess swallow function
--- NOTE | 2024-11-27 16:48 | CM ---
Alert awake oriented patient who lives alone in a 1 story home with 1 step to enter. She is independent in activates of daily living.She does drive .She is on new oxygen Watch for new oxygen need.
No VN in past . No SNF hx
Pharmacy [facility]
PCP Dr Gerry Hoover
PLAN Home no anticipated needs Watch for oxygen need.
[2024-11-27] MEDS: LOVENOX 40 MG SC (17:03)
[2024-11-27] MEDS: LIPITOR 40 MG PO (17:03)
[2024-11-27] MEDS: PULMICORT 0.5 MG INH (19:41)
[2024-11-27] MEDS: ZANAFLEX 4 MG PO (22:19)
[2024-11-27] MEDS: DESYREL 150 MG PO (22:19)
[2024-11-27] MEDS: SENOKOT PO ×2 (22:19→22:48)
[2024-11-28] MEDS: UNASYN IV ×4 (03:06→21:07)
[2024-11-28 03:32] VITALS: BP 157/94
[2024-11-28] MEDS: ROXICODONE 10 MG PO ×2 (04:14→15:00)
[2024-11-28 07:09] VITALS: BP 160/96
[2024-11-28] MEDS: DUONEB 3 ML INH ×3 (07:45→19:13)
[2024-11-28] MEDS: PULMICORT 0.5 MG INH ×2 (07:45→19:13)
[2024-11-28] MEDS: MIRALAX PO (07:58)
[2024-11-28] MEDS: PROTONIX 40 MG PO (07:58)
[2024-11-28] MEDS: NICODERM TRANSDERMAL 14 MG TRANSDERM (07:59)
[2024-11-28] MEDS: COZAAR 25 MG PO (07:59)
[2024-11-28] MEDS: DEPAKOTE (12 HR RELEASE) 500 MG PO ×2 (07:59→19:37)
[2024-11-28] MEDS: XANAX 0.5 MG PO ×4 (07:59→21:08)
[2024-11-28] MEDS: CYMBALTA DELAYED RELEASE 60 MG PO (07:59)
[2024-11-28] MEDS: LYRICA 50 MG PO ×2 (07:59→19:37)
[2024-11-28] MEDS: LOW STRENGTH ASPIRIN 81 MG PO (08:00)
[2024-11-28] MEDS: CYMBALTA DELAYED RELEASE 20 MG PO (08:00)
[2024-11-28] MEDS: MEGACE ORAL SUSPENSION 200 MG PO (08:00)
--- NOTE | 2024-11-28 08:31 | W.PN.HOSP.TC ---
Addendum entered and electronically signed by Rhett Paige MD 11/28/24 10:36:
Addendum
Pt has no heart failure.
Original Note:
Today's Communication/Plan
-
Chest x ray
Laxative
IV Steroid
Nebs
IV ABx
Assessment / Plan
Assessment / Plan
Physical Exam
GENERAL: Alert , in no apparent distress, very thin/cachectic
EYE: pupils equal and reactive
NECK: Supple, no significant adenopathy.
ENT: o/p clr, mmm.
CARDIAC: S1, S2 regular rate and rhythm .
LUNGS: Equal breath sounds bilaterally, no acute respiratory distress, nasal cannula in place, diffuse wheezing with associated rhonchi
ABDOMEN: Soft, without focal tenderness, no r/g, no cvat
NEUROLOGICAL: Alert and oriented, no focal neuro deficits
SKIN: Warm and dry, skin intact.
MUSCULOSKELETAL: No edema, well perfused. Significant diffuse muscle atrophy.
PSYCH: Normal and appropriate interaction.
Assessment and plan
#Acute hypoxic respiratory failure. SaO2 around 60-70 upon arrival, improved with oxygen supplementation/nebulizer treatment/intravenous steroid.
Likely will need home O2
Continue with bronchodilator therapy ATC and PRN, systemic steroid
Sputum culture is possible
Add Nicotine patch
# Aspiration Pneumonia POA , localized infection, not systemic or sepsis
Chest x ray seems ( my reading to it ) with RLQ infiltrates?
Started on Unasyn for short course then can do Augmentin
d/w speech, will do video study
# Acute COPD exacerbation due to continued tobacco use
c/w DuoNeb & Pulmicort nebulizer mdpsat-ant-lbkpn and as needed
Continue with IV steroid
GI prophylaxis with PPI
repeat CXR 11/28
Short course of antibiotic due to leukocytosis,
Negative blood culture, patient denies fever or chills. No cough
# Positive troponin, EKG nonspecific changes. Likely non ischemic troponin elevation secondary to hypoxia, no recent EKG to compare. Patient complains of shortness of breath but no specific chest pain. Troponin went down.
Appreciate cardiology
c/w Statin, ARB, low dose Aspirin
Echo showed LVEF 59%, RV dilated, Mild to moderate AR, mild TR. No signs of CHF on exam.
Monitor on telemetry
# Stage II pressure sacral deep tissue injury
Consult wound care
Barrier cream/foam
Change position and use cushion to relieve pressure
# Severe protein calorie malnutrition
Gait dysfunction
Muscle wasting
Patient has chronic illness, lives alone in [facility] and unable to care for self
Consulted nutrition
Consulted dependency case manager.
#Hyponatremia. No confusion
Mild
# Constipation
Abdomen is soft, non tender
c/w MiraLAX, PRN Dulcolax.
# Chronic pain syndrome with narcotic dependence
# Chronic anxiety disorder with benzodiazepine dependency
# History of brain cancer s/p resection. In remission.
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
# DVT prophylaxis
Total time spent to see the patient, examine the patient, review data and lab results, discuss treatment plan with patient, her sister, nursing staff around 55 minutes
Anticipated Discharge: > 48 hours
Subjective/Interval History
-
Date of Service: November 28, 2024
she feels better
no chest pain
Objective Data
-
Vital Signs:
Vital Signs
Temp Pulse Resp BP Pulse Ox
97.4 F 91 18 160/86 93
11/28/24 07:09 11/28/24 07:59 11/28/24 07:09 11/28/24 07:59 11/28/24 07:57
I&O
11/27/24 11/28/24 11/29/24
06:59 06:59 06:59
Intake Total 120 / 120 780 / 780
Output Total 300 / 300
Balance 120 / 120 480 / 480
[2024-11-28 08:39] LABS: HDL Cholesterol 53 mg/dl; LDL Cholesterol, Calculated 67 mg/dl; Very Low Density Lipoprotein 13 mg/dl (0-30)
--- NOTE | 2024-11-28 09:01 | W.PN.CARDCBS ---
Addendum entered and electronically signed by Brenda Cabello MD 11/28/24 13:56:
error
Addendum entered and electronically signed by Brenda Cabello MD 11/28/24 13:43:
I saw and examined the patient.
The Loom Fixer Supervisor's note was reviewed and I agree with the note.
Comment:
Exam is difficult. Heart sounds distant. Coarse anterior breath sounds. Oxygen in place. No significant edema. EKG today stable with sinus rhythm and no ST-T wave abnormalities. Oxygenation remained stable.
As noted she has a complicated history. From a cardiac point of view she appeared volume overloaded by labs and chest x-ray on admission. She is being treated for COPD and some degree of volume overload. EKG had waxing and waning T wave
abnormalities which are now stable.
She has done well with dose of IV Lasix and breathing feels a little better today. Pending labs we may repeat.
Await labs from today.
Continue to follow for cardiac symptoms.
If appropriate consider outpatient stress test given mild elevation of troponin while inpatient in the setting of waxing and waning EKG abnormalities without symptoms of chest pain.
During this admission so far we have started 81 mg aspirin and statins. Lipids noted. The echo with normal heart function and mild to moderate aortic valve insufficiency.
For hypertension we have started losartan and we will continue to follow.
Continue treatment of COPD and underlying lung disease.
Continue oncology follow-up.
Original Note:
Today's Communication / Plan
-
Continue aspirin, lipitor
New to losartan for BP control
s/p IV lasix x1 on 11/27. Await weight and AM labs to reassess
Continue abx per primary service.
Impression / Plan
-
Cardiology: None prior to admission, initially seen by Dr. Brenda Cabello
Impression:
Presented with SOB
COPD exacerbation
Elevated troponin, suspect nonischemic myocardial injury
Concern for acute HFpEF
Hyponatremia
h/o lung cancer
h/o brain cancer
h/o CVA
Tobacco abuse
COPD
Seizures
Echo 11/27/2024: EF 59%, mild-moderate AR, mild TR
Plan:
-Presented with shortness of breath and cough. Admitted with COPD exacerbation and elevated troponin.
-Abnormal EKG noted on arrival w/ anterior T wave inversions, appears improved on repeat EKG this AM.
-Still no chest pain. Troponin peaked at 0.245 and trended down thereafter. Managing as nonischemic myocardial injury in the setting of COPD and possible heart failure exacerbations.
-Continue aspirin 81mg daily and lipitor, both new this admission. LDL 67.
-Should have OP stress testing to evaluate for CAD.
-Echo 11/27 with preserved EF, mild to moderate AR as noted above.
-Given a single dose of IV lasix on 11/27 given concern for acute heart failure with pleural effusion and proBNP 5580.
-Recheck weight, BMP 11/27, orders placed by me.
-New to Losartan 25mg daily for BP control.
-Continue abx per primary service/pulmonology.
-h/o lung and brain cancer noted. Not currently on treatment.
HPI: Manda is a 64-year-old female with past medical history of lung cancer, brain cancer, prior CVA, tobacco abuse, COPD, and seizures. She presented to [facility] ER for evaluation of worsening shortness of breath over the past 2 days. Her sister had
reported that she had seemed off for a longer period of time than that. Also notes productive cough. She was initially evaluated in urgent care and was referred to ER given hypoxia with pulse ox in the 60s to 70s. On arrival to ER, she was placed
on 4 L NC. Denies any chest pain, palpitations, dizziness, lightheadedness, lower extremity edema, or fevers recently. She was admitted with concern for COPD exacerbation and was started on IV steroids as well as antibiotics. Given shortness of
breath, troponin was checked and was found to be elevated at 0.245, trending down thereafter. proBNP also elevated at 5580. She has no known cardiac history and has never been seen by cardiology in the past by report. Feels that breathing is
somewhat improved on O2 and with treatment thus far, but still feels relatively unwell. EKG reviewed, SR with T wave inversions anteriorly, new compared to prior in 2013. Most of her care is provided in [place] which is where she typically
resides.
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
Subjective
Date of Service: November 28, 2024
Still w/ SOB and chronic pain related to prior cancer.
Objective
Labs:
11/27/24 07:49
11/27/24 07:49
Labs
Hgb 13.9 g/dL (12.0-16.0) 11/27/24 07:49
Hct 41.9 % (37.0-47.0) 11/27/24 07:49
Plt Count 248 10^3/uL (130-400) 11/27/24 07:49
Sodium 132 mmol/L (135-145) L 11/27/24 07:49
Potassium 4.3 mmol/L (3.5-5.1) 11/27/24 07:49
BUN 27 mg/dl (7-17) H 11/27/24 07:49
Creatinine 0.5 mg/dL (0.6-1.0) L 11/27/24 07:49
Glucose 119 mg/dl (70-99) H 11/27/24 07:49
Troponins
11/26/24 11/26/24 11/27/24
13:57 20:14 01:46
Troponin I 0.216 H* 0.245 H* 0.225 H*
11/27/24
07:49
Troponin I 0.161 H* D
Vital Signs and I&O:
Vital Signs
Temp Pulse Resp BP Pulse Ox
97.4 F 91 16 160/86 93
11/28/24 07:09 11/28/24 07:59 11/28/24 07:45 11/28/24 07:59 11/28/24 07:57
Vital Signs
Temp Pulse Resp BP Pulse Ox
97.4 F 91 16 160/86 93
11/28/24 07:09 11/28/24 07:59 11/28/24 07:45 11/28/24 07:59 11/28/24 07:57
Intake & Output
11/26/24 11/27/24 11/28/24 11/29/24
06:59 06:59 06:59 06:59
Intake Total 120 / 120 780 / 780
Output Total 300 / 300
Balance 120 / 120 480 / 480
Physical Exam
Physical Exam
GEN: No distress, awake, alret, oriented x3
HEENT: supple, anicteric, mmm
LUNGS: scattered rhonchi
CV: Reg, S1/S2, 1/6 murmur
EXT: No clubbing, cyanosis, or edema
NEURO: Gross non-focal
SKIN: Warm, dry, no rash
[2024-11-28 09:41] LABS: Glycohemoglobin (HgbA1c) 5.1 % (4.0-5.6)
[2024-11-28] MEDS: SOLU-MEDROL PF 40 MG IV ×2 (09:56→21:08)
[2024-11-28] MEDS: FLUSH (NSS) 1 FLUSH IV ×2 (09:56→16:53)
--- NOTE | 2024-11-28 10:55 | W.PN.PUL.V3 ---
Today's Communication / Plan
-
No change in steroids.
Wean oxygen.
Diuresis.
Antibiotics.
Assessment
-
64-year-old smoking female with underlying suspected COPD, depression, anxiety, chronic pain, CVA, and previous lung cancer presented with increasing shortness of breath felt to have COPD exacerbation-pulmonary consulted for shortness of breath/COPD
exacerbation 11/27/2024
COPD-suspected gold stage IV with acute exacerbation
Bedside spirometry. 11/27/24-FEV1 720 mL-30%, 17% improvement postbronchodilator
Leukocytosis
Chronic hypercapnia-ABG 11/26/2024--7.39
Mild hyperglycemia
Mild hyponatremia
Conditions present prior to admission:
Cigarette smoker.
COPD.
History of lung cancer.
History of brain cancer.
Depression/anxiety.
Chronic pain.
History of CVA.
Seizure disorder..
Aortic regurgitation-moderate by echo
Plan
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
Will attempt to obtain more information about history of lung cancer and treatment
Patient requires admission for severe COPD exacerbation and respiratory failure
Supplemental oxygen as needed
Consider ABG
BiPAP if needed
Duonebs continues
Pulmicort nebulizers continues
Mucolytic's
Steroids-methylprednisolone 40 mg IV every 12 hours --no change
Incentive spirometry
Acapella
Consider vest if difficulties mobilizing secretions
Consider chest physiotherapy if difficulties mobilizing secretions.
Spirometry 11/27/24-FEV1 720 mL-30%, 17% improvement postbronchodilator.
Chest x-ray 11/28/24-small bilateral pleural effusions.
Echocardiogram 11/27/24-EF 59%, moderately dilated right ventricle, mild to moderate aortic valve regurgitation.
Cardiology following.
Diuresis as tolerated
Cultures reviewed.
Unable to produce sputum
Empiric antibiotics if acute bacterial bronchitis or acute bacterial lower respiratory tree infection is suspected-ampicillin initiated
Consider Procalcitonin level if unsure whether acute respiratory tract bacterial infection exists-caveat may be negative with atypical infections
Monitor leukocytosis
Monitor blood sugars
Insulin supplementation as needed
Smoking cessation counseling ongoing
Nicotine patch
DVT prophylaxis-on Lovenox
GI prophylaxis recommended if on steroids for prolonged period-on pantoprazole
Early nutrition
Early mobilization
Reviewed with nursing
Would benefit from triple inhaler therapy such as Trelegy or Breztri at time of discharge
Outpatient pulmonary [id number], inhalers, pulmonary rehab, smoking cessation counseling, low-dose lung cancer screening CT, etc.
Diagnostic data:
Chest x-ray 06/30/2013-NAD
Chest x-ray 11/26/2024-mild blunting lateral and posterior costophrenic angles bilaterally suggesting small bilateral pleural effusions
Subjective Data
-
Date of Service:
Date of Service: November 28, 2024
Chief Complaint: Pulmonary Follow Up and Dyspnea Follow Up
Subjective:
Denies any shortness of breath arrest, continues to have dyspnea on exertion, sleepy, feels better, no chest pain or abdominal pain
Review of Systems
General: Other ( per HPI)
Objective Data
Data Reviewed
Vital Signs / I&O:
Vital Signs
Temp Pulse Resp BP Pulse Ox
97.4 F 91 16 160/86 93
11/28/24 07:09 11/28/24 07:59 11/28/24 07:45 11/28/24 07:59 11/28/24 07:57
Intake and Output
11/27/24 11/28/24 11/29/24
06:59 06:59 06:59
Intake Total 120 / 120 780 / 780
Output Total 300 / 300
Balance 120 / 120 480 / 480
SaO2: 93
Nasal Cannula flow liters per minute: 6
Physical Exam
General: Respiratory Distress (n), Comfortable and Other ( cachectic and chronically ill-appearing)
HEENT: Normocephalic, Anicteric and Moist Mucous Membranes
Cardiovascular: Regular Rhythm
Respiratory: Clear ( diminished breath sounds, prolonged expiratory time), Wheeze (n), Crackles (n), Rhonchi (n), Non-Labored Respirations, Accessory Resp Muscle Use (n) and Stridor (n)
GI: Soft, Non Distended and Non Tender
Neurology: Awake, Alert and No Motor Deficits
Skin: Warm, Good Color, Cyanosis (n), Jaundice and Rash (n)
Labs/Micro/Reports
Lab Data
11/27/24 07:49
11/28/24 09:56
Microbiology
11/26/24 15:10 Blood/Venous Blood Culture - Preliminary
No Growth in 24 hours- Final report to follow
11/26/24 13:57 Blood/Venous Blood Culture - Preliminary
No Growth in 24 hours- Final report to follow
11/26/24 13:57 Nasal Swab Influenza Types A & B (PATRICK) - Final
Negative for Influenza A & B, NAAT
Negative results must be combined with clinical observations
and patient history.
Nucleic Acid Amplification test (NAAT)performed on the
[employer] platform.
[2024-11-28 11:16] VITALS: BP 144/90
[2024-11-28] MEDS: DUONEB INH (11:29)
--- NOTE | 2024-11-28 12:58 | PTOTSP ---
Addendum entered and electronically signed by Molly Dugan MS, ST, CCC, LONGWALL FOREMAN 11/28/24 16:22:
4. attempt lingual/pharyngeal/cough strengthening exercises.
Original Note:
Video Swallow Examination
Pharyngeal stasis suggests significant tongue base and pharyngeal weakness. Unable to fully clear pharyngeal residue. This resulted in charles tracheal aspiration of thin liquid with weak/ineffective cough response, and trace aspiration across other
trials without a cough response. Strategies were not successful. 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
Patient is not safe for oral diet.
Recommend
1. NPO with consideration for alternative nutrition.
2. Critical meds crushed in moderately (honey) thick liquid.
3. Consider alternative nutrition.
4. Consider neurology consult
4. ST will follow and attempt
[2024-11-28 14:35] VITALS: BMI 14.2
[2024-11-28 14:49] LABS: Blood Urea Nitrogen 31 mg/dl (7-17); Calcium 8.9 mg/dl (8.4-10.2); Carbon Dioxide 37 mmol/L (22-30); Chloride 93 mmol/L (98-107); Estimated Creatinine Clearance 56 ml/min; Glucose 126 mg/dl (70-99); Potassium 4.0 mmol/L (3.5-5.1); Sodium 135 mmol/L (135-145); eGFR > 60.00
[2024-11-28 15:00] VITALS: BP 146/81
--- NOTE | 2024-11-28 15:22 | PTCARENOTE ---
Pt sleeping for long intervals; easily arousable, oriented x 3 when awake; very irritable. LEVY well (+) arm tremors. OOB to BSC with assist x1; pt tires easily. VSS. On nc 5 lpm- pulse ox 96%, pt with (+) PIZARRO/tachypnea; occ loose cough- clear
mucus. Abd soft, paula PO; appetite fair. Pt informed of need for IDDI 4 diet. Voids small amts lt gerald urine on BSC. Resting in bed at present. Will continue to monitor.
[2024-11-28] MEDS: LIPITOR 40 MG PO (17:36)
[2024-11-28] MEDS: LOVENOX 40 MG SC (17:36)
[2024-11-28] MEDS: SENOKOT 17.2 MG PO (21:08)
[2024-11-28] MEDS: DESYREL 150 MG PO (21:08)
[2024-11-28] MEDS: ZANAFLEX 4 MG PO (21:08)
[2024-11-28 23:18] VITALS: BP 153/88
[2024-11-29] MEDS: UNASYN IV ×4 (03:15→21:19)
[2024-11-29] MEDS: ROXICODONE 10 MG PO ×4 (03:51→23:15)
[2024-11-29 06:00] VITALS: BMI 14.5
[2024-11-29] MEDS: DUONEB 3 ML INH ×4 (07:13→19:50)
[2024-11-29] MEDS: PULMICORT 0.5 MG INH ×2 (07:14→19:50)
[2024-11-29] MEDS: MIRALAX PO (07:14)
[2024-11-29] MEDS: CYMBALTA DELAYED RELEASE 20 MG PO (07:14)
[2024-11-29] MEDS: LOW STRENGTH ASPIRIN 81 MG PO (07:15)
[2024-11-29] MEDS: LYRICA 50 MG PO ×2 (07:15→19:39)
[2024-11-29] MEDS: CYMBALTA DELAYED RELEASE 60 MG PO (07:15)
[2024-11-29] MEDS: DEPAKOTE (12 HR RELEASE) 500 MG PO ×2 (07:15→19:39)
[2024-11-29] MEDS: XANAX 0.5 MG PO ×4 (07:15→21:19)
[2024-11-29] MEDS: MEGACE ORAL SUSPENSION 200 MG PO (07:15)
[2024-11-29] MEDS: NICODERM TRANSDERMAL 14 MG TRANSDERM (07:16)
[2024-11-29] MEDS: COZAAR 25 MG PO (07:16)
[2024-11-29] MEDS: PROTONIX 40 MG PO (07:17)
[2024-11-29 07:31] VITALS: BP 172/99
[2024-11-29 07:40] LABS: Blood Urea Nitrogen 25 mg/dl (7-17); Calcium 8.9 mg/dl (8.4-10.2); Carbon Dioxide 39 mmol/L (22-30); Chloride 92 mmol/L (98-107); Estimated Creatinine Clearance 58 ml/min; Glucose 111 mg/dl (70-99); Potassium 3.9 mmol/L (3.5-5.1); Sodium 134 mmol/L (135-145); eGFR > 60.00
--- NOTE | 2024-11-29 09:11 | W.PN.HOSP.TC ---
Today's Communication/Plan
-
Chronic pain/ chronic dysphagia.
Discussed with patient possibility to reduce opioids/benzodiazepines use, she declined and wanted to continue with same regimen. She was made aware of potential risks and side effects of such medications especially with poor physical and
nutritional status. She agreed to re-visit this tomorrow.
Will c/w IV steroid for today
SaO2 target >89 %
Assessment / Plan
Assessment / Plan
Physical Exam
GENERAL: Alert , in no apparent distress, very thin/cachectic
EYE: pupils equal and reactive
NECK: Supple, no significant adenopathy.
ENT: o/p clr, mmm.
CARDIAC: S1, S2 regular rate and rhythm .
LUNGS: less rhonchi
ABDOMEN: Soft, without focal tenderness, no r/g, no cvat
NEUROLOGICAL: Alert and oriented, no focal neuro deficits
SKIN: Warm and dry, skin intact.
MUSCULOSKELETAL: No edema, well perfused. Significant diffuse muscle atrophy.
PSYCH: Normal and appropriate interaction.
Assessment and plan
#Acute hypoxic respiratory failure. SaO2 around 60-70 upon arrival, improved with oxygen supplementation/nebulizer treatment/intravenous steroid.
Will need home O2
Continue with bronchodilator therapy ATC and PRN, systemic steroid
Add Nicotine patch
# Aspiration Pneumonia POA , localized infection, not systemic or sepsis
Chest x ray seems ( my reading to it ) with RLQ infiltrates
Started on Unasyn for short course then can do Augmentin
d/w speech, video swallow showed high risk aspiration. Discussed with patient, declined n.p.o. status/feeding tube. Wanted to continue with comfort feedings.
She was made aware that high doses of opioid and benzodiazepine can impact motility of GI system in admission to cachexia/ malnutrition.
# Acute COPD exacerbation due to continued tobacco use
c/w DuoNeb & Pulmicort nebulizer [id number] and as needed
Continue with IV steroid
GI prophylaxis with PPI
repeat CXR 11/28
Short course of antibiotic due to leukocytosis,
Negative blood culture, patient denies fever or chills. No cough
# Positive troponin, EKG nonspecific changes. Likely non ischemic troponin elevation secondary to hypoxia, no recent EKG to compare. Patient complains of shortness of breath but no specific chest pain. Troponin went down.
Appreciate cardiology
c/w Statin, ARB, low dose Aspirin
Echo showed LVEF 59%, RV dilated, Mild to moderate AR, mild TR. No signs of CHF on exam.
Monitor on telemetry
# Stage II pressure sacral deep tissue injury
Consult wound care
Barrier cream/foam
Change position and use cushion to relieve pressure
# Severe protein calorie malnutrition
Gait dysfunction
Muscle wasting
Patient has chronic illness, lives alone in [facility] and unable to care for self
Consulted nutrition
Consulted binder caser.
#Hyponatremia. No confusion
Mild
# Constipation
Abdomen is soft, non tender
c/w MiraLAX, PRN Dulcolax.
# Chronic pain syndrome with narcotic dependence. Unknown etiology, patient reported that started after treatment of cancer but cannot verify history. She declined to consider reducing the dose but advised to take less as needed doses.
# Chronic anxiety disorder with benzodiazepine dependency, she declined to reduce the dose of Xanax.
# History of brain cancer s/p resection. In remission.
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
# DVT prophylaxis
Total time spent to see the patient, examine the patient, review data and lab results, discuss treatment plan with patient, her sister, nursing staff around 55 minutes
Anticipated Discharge: > 48 hours
Subjective/Interval History
-
Date of Service: November 29, 2024
Objective Data
-
Labs:
Laboratory Results
11/29/24
06:07
Sodium 134 L
Potassium 3.9
Chloride 92 L
Carbon Dioxide 39 H
BUN 25 H
Creatinine 0.4 L
Glucose 111 H
Calcium 8.9
Vital Signs:
Vital Signs
Temp Pulse Resp BP Pulse Ox
100.3 F 89 18 172/99 95
11/29/24 07:31 11/29/24 07:31 11/29/24 07:31 11/29/24 07:31 11/29/24 07:31
I&O
11/28/24 11/29/24 11/30/24
06:59 06:59 06:59
Intake Total 780 / 780 740 / 740
Output Total 300 / 300
Balance 480 / 480 740 / 740
[2024-11-29] MEDS: SOLU-MEDROL PF 40 MG IV ×2 (09:46→21:18)
--- NOTE | 2024-11-29 10:22 | W.PN.CARDCBS ---
Addendum entered and electronically signed by Brenda Cabello MD 11/29/24 15:19:
I saw and examined the patient.
The Chain Maker Machine's note was reviewed and I agree with the note.
Comment: Thin frail woman
Heart: Distant heart sound I, RRR, no murmurs, No S3, S4, no rubs.
Lungs: Coarse anterior breath
Extremities: No clubbing, cyanosis or edema bilaterally.
Neuro: Grossly nonfocal, awake, alert
Telemetry independently reviewed by me is stable. Oxygenation remains stable.
She tells me she urinated briskly with last dose of Lasix and we will repeat today. She feels her breathing is better overall. From a cardiac point of view she appears mildly volume overloaded by prior labs and chest x-ray on admission. She is
being treated for COPD and some degree of volume overload. EKG had waxing and waning T wave abnormalities which are now stable.
She has done well with dose of IV Lasix received 11/28 and now once again today 11/29. Await next set of blood work
Continue to follow for cardiac symptoms.
If appropriate consider outpatient stress test given mild elevation of troponin while inpatient in the setting of waxing and waning EKG abnormalities without symptoms of chest pain.
During this admission so far we have started 81 mg aspirin and statins. Lipids noted. The echo with normal heart function and mild to moderate aortic valve insufficiency.
For hypertension we have started losartan and today 11/29 we have increased dose. We will continue to follow.
Continue treatment of COPD and underlying lung disease.
Continue oncology follow-up.
Original Note:
Today's Communication / Plan
-
Continue ABX per pulmonology.
Consider giving another dose of IV Lasix
Will uptitrate losartan for better BP control
Impression / Plan
-
Cardiology: None prior to admission, initially seen by Dr. Brenda Cabello
Impression:
Presented with SOB
COPD exacerbation
Elevated troponin, suspect nonischemic myocardial injury
Concern for acute HFpEF
Hyponatremia
h/o lung cancer
h/o brain cancer
h/o CVA
Tobacco abuse
COPD
Seizures
Echo 11/27/2024: EF 59%, mild-moderate AR, mild TR
Plan:
-Presented with shortness of breath and cough. Admitted with COPD exacerbation and elevated troponin. Abnormal EKG noted on arrival w/ anterior T wave inversions, improved on repeat.
-Remains chest pain-free and feels as though she is improving throughout admission.
-Troponin peaked at 0.245 and trended down thereafter. Managing as nonischemic myocardial injury in the setting of COPD and possible heart failure exacerbation.
-Continue aspirin 81mg daily and lipitor, both new this admission. LDL 67. Consider OP stress testing.
-Echo 11/27 with preserved EF, mild to moderate AR as noted above.
-Given a single dose of IV lasix on 11/27 given concern for acute heart failure with pleural effusion and proBNP 5580.
-Weight down to 87 pounds on 11/29. Creatinine stable at 0.4. Consider giving another dose of IV Lasix.
-New to Losartan 25mg daily for BP control. BP remains elevated. Will uptitrate to 50 mg daily.
-Continue abx per primary service/pulmonology.
-h/o lung and brain cancer noted. Not currently on treatment.
HPI: Manda is a 64-year-old female with past medical history of lung cancer, brain cancer, prior CVA, tobacco abuse, COPD, and seizures. She presented to [facility] ER for evaluation of worsening shortness of breath over the past 2 days. Her sister had
reported that she had seemed off for a longer period of time than that. Also notes productive cough. She was initially evaluated in urgent care and was referred to ER given hypoxia with pulse ox in the 60s to 70s. On arrival to ER, she was placed
on 4 L NC. Denies any chest pain, palpitations, dizziness, lightheadedness, lower extremity edema, or fevers recently. She was admitted with concern for COPD exacerbation and was started on IV steroids as well as antibiotics. Given shortness of
breath, troponin was checked and was found to be elevated at 0.245, trending down thereafter. proBNP also elevated at 5580. She has no known cardiac history and has never been seen by cardiology in the past by report. Feels that breathing is
somewhat improved on O2 and with treatment thus far, but still feels relatively unwell. EKG reviewed, SR with T wave inversions anteriorly, new compared to prior in 2013. Most of her care is provided in [place] which is where she typically
resides.
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
Subjective
Date of Service: November 29, 2024
No chest pain, continues with shortness of breath and weakness but feels she is improving this admission.
Objective
Labs:
11/27/24 07:49
11/29/24 06:07
Labs
Hgb 13.9 g/dL (12.0-16.0) 11/27/24 07:49
Hct 41.9 % (37.0-47.0) 11/27/24 07:49
Plt Count 248 10^3/uL (130-400) 11/27/24 07:49
Sodium 134 mmol/L (135-145) L 11/29/24 06:07
Potassium 3.9 mmol/L (3.5-5.1) 11/29/24 06:07
BUN 25 mg/dl (7-17) H 11/29/24 06:07
Creatinine 0.4 mg/dL (0.6-1.0) L 11/29/24 06:07
Glucose 111 mg/dl (70-99) H 11/29/24 06:07
Troponins
11/26/24 11/26/24 11/27/24
13:57 20:14 01:46
Troponin I 0.216 H* 0.245 H* 0.225 H*
11/27/24
07:49
Troponin I 0.161 H* D
Vital Signs and I&O:
Vital Signs
Temp Pulse Resp BP Pulse Ox
100.3 F 89 18 172/99 95
11/29/24 07:31 11/29/24 07:31 11/29/24 07:31 11/29/24 07:31 11/29/24 07:31
Vital Signs
Temp Pulse Resp BP Pulse Ox
100.3 F 89 18 172/99 95
11/29/24 07:31 11/29/24 07:31 11/29/24 07:31 11/29/24 07:31 11/29/24 07:31
Intake & Output
11/27/24 11/28/24 11/29/24 11/30/24
06:59 06:59 06:59 06:59
Intake Total 120 / 120 780 / 780 740 / 740
Output Total 300 / 300
Balance 120 / 120 480 / 480 740 / 740
Physical Exam
Physical Exam
GEN: No distress, awake, alert, oriented x3
HEENT: supple, anicteric, mmm
LUNGS: scattered rhonchi
CV: Reg, S1/S2, 1/6 murmur
EXT: No clubbing, cyanosis, or edema
NEURO: Gross non-focal
SKIN: Warm, dry, no rash
[2024-11-29] MEDS: LASIX 40 MG IV (12:54)
--- NOTE | 2024-11-29 15:04 | W.PN.PUL3 ---
Today's Communication / Plan
-
- Continue twice daily IV steroids today, anticipate transition to p.o. prednisone in a.m.
Assessment
-
64-year-old smoking female with underlying suspected COPD, depression, anxiety, chronic pain, CVA, and previous lung cancer presented with increasing shortness of breath felt to have COPD exacerbation-pulmonary consulted for shortness of breath/COPD
exacerbation 11/27/2024
COPD-suspected gold stage IV with acute exacerbation
Bedside spirometry. 11/27/24-FEV1 720 mL-30%, 17% improvement postbronchodilator
Leukocytosis
Chronic hypercapnia-ABG 11/26/2024--7.39
Mild hyperglycemia
Mild hyponatremia
Conditions present prior to admission:
Cigarette smoker.
COPD.
History of lung cancer.
History of brain cancer.
Depression/anxiety.
Chronic pain.
History of CVA.
Seizure disorder..
Aortic regurgitation-moderate by echo
Plan
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
Patient reports prior history of stage III lung cancer treated with chemotherapy and radiation and follows up with an oncologist in [facility], details unavailable for review
Patient requires admission for severe COPD exacerbation and respiratory failure
Supplemental oxygen as needed
Consider ABG
BiPAP if needed
Duonebs continues
Pulmicort nebulizers continues
Mucolytic's
Steroids-methylprednisolone 40 mg IV every 12 hours --no change
Incentive spirometry
Acapella
Consider vest if difficulties mobilizing secretions
Consider chest physiotherapy if difficulties mobilizing secretions.
Spirometry 11/27/24-FEV1 720 mL-30%, 17% improvement postbronchodilator.
Chest x-ray 11/28/24-small bilateral pleural effusions.
Echocardiogram 11/27/24-EF 59%, moderately dilated right ventricle, mild to moderate aortic valve regurgitation.
Cardiology following.
Diuresis as tolerated
Cultures reviewed.
Unable to produce sputum
Empiric antibiotics if acute bacterial bronchitis or acute bacterial lower respiratory tree infection is suspected-ampicillin initiated
Consider Procalcitonin level if unsure whether acute respiratory tract bacterial infection exists-caveat may be negative with atypical infections
Monitor leukocytosis
Monitor blood sugars
Insulin supplementation as needed
Smoking cessation counseling ongoing
Nicotine patch
DVT prophylaxis-on Lovenox
GI prophylaxis recommended if on steroids for prolonged period-on pantoprazole
Early nutrition
Early mobilization
Reviewed with nursing
Would benefit from triple inhaler therapy such as Trelegy or Breztri at time of discharge
Outpatient pulmonary [id number], inhalers, pulmonary rehab, smoking cessation counseling, low-dose lung cancer screening CT, etc.
Diagnostic data:
Chest x-ray 06/30/2013-NAD
Chest x-ray 11/26/2024-mild blunting lateral and posterior costophrenic angles bilaterally suggesting small bilateral pleural effusions
Subjective Data
-
Date of Service:
Date of Service: November 29, 2024
Chief Complaint: Pulmonary Follow Up and Dyspnea Follow Up
Subjective:
Patient comfortably lying in bed in no acute distress. Reports gradual improvement of symptoms
Review of Systems
Genitourinary: Other (All 14 systems reviewed and negative except as stated above in the history of present illness.)
Objective Data
Data Reviewed
Vital Signs / I&O / Oxygen:
Vital Signs
Temp Pulse Resp BP Pulse Ox
100.3 F 105 18 136/90 93
11/29/24 07:31 11/29/24 12:54 11/29/24 11:13 11/29/24 12:54 11/29/24 11:13
Intake and Output
11/28/24 11/29/24 11/30/24
06:59 06:59 06:59
Intake Total 780 / 780 740 / 740
Output Total 300 / 300
Balance 480 / 480 740 / 740
SaO2 93
Nasal Cannula flow liters per 4
minute
Physical Exam
General: Respiratory Distress (n), Comfortable and Other ( cachectic and chronically ill-appearing)
HEENT: Normocephalic, Anicteric and Moist Mucous Membranes
Cardiovascular: Regular Rhythm
Respiratory: Clear ( diminished breath sounds, prolonged expiratory time), Wheeze (n), Crackles (n), Rhonchi (n), Non-Labored Respirations, Accessory Resp Muscle Use (n) and Stridor (n)
GI: Soft, Non Distended and Non Tender
Neurology: Awake, Alert and No Motor Deficits
Skin: Warm, Good Color, Cyanosis (n), Jaundice and Rash (n)
Labs/Micro/Reports
Lab Data
11/27/24 07:49
11/29/24 06:07
Microbiology
11/26/24 13:57 Blood/Venous Blood Culture - Preliminary
No Growth in 72 hours- Final report to follow
11/26/24 15:10 Blood/Venous Blood Culture - Preliminary
No Growth in 48 hours- Final report to follow
11/26/24 13:57 Nasal Swab Influenza Types A & B (PTARICK) - Final
Negative for Influenza A & B, NAAT
Negative results must be combined with clinical observations
and patient history.
Nucleic Acid Amplification test (NAAT)performed on the
[employer] platform.
[2024-11-29 15:38] VITALS: BP 136/94
[2024-11-29] MEDS: LIPITOR 40 MG PO (17:31)
[2024-11-29] MEDS: LOVENOX 40 MG SC (17:31)
[2024-11-29] MEDS: SENOKOT 17.2 MG PO (21:17)
[2024-11-29] MEDS: DESYREL 150 MG PO (21:17)
[2024-11-29] MEDS: FLUSH (NSS) 3 FLUSH IV (21:18)
[2024-11-29] MEDS: ZANAFLEX 4 MG PO (21:19)
[2024-11-29 23:01] VITALS: BP 119/77
[2024-11-30] MEDS: FLUSH (NSS) 2 FLUSH IV (04:28)
[2024-11-30] MEDS: UNASYN IV ×4 (04:28→21:39)
[2024-11-30 06:00] VITALS: BMI 14.0
[2024-11-30] MEDS: ROXICODONE 10 MG PO (06:31)
[2024-11-30 07:07] LABS: Hematocrit 43.3 % (37.0-47.0); Hemoglobin 13.9 g/dL (12.0-16.0); Mean Corp Hgb Conc. 32.1 g/dL (33.0-37.0); Mean Corpuscular Volume 90.8 fL (81.0-99.0); Platelet Count 225 10^3/uL (130-400); Red Cell Dist. Width 17.7 % (11.5-14.5)
[2024-11-30 07:24] VITALS: BP 171/99
[2024-11-30 07:32] LABS: Blood Urea Nitrogen 29 mg/dl (7-17); Calcium 8.8 mg/dl (8.4-10.2); Chloride 87 mmol/L (98-107); Estimated Creatinine Clearance 56 ml/min; Glucose 105 mg/dl (70-99); Potassium 4.1 mmol/L (3.5-5.1); Sodium 132 mmol/L (135-145); eGFR > 60.00
[2024-11-30] MEDS: DUONEB 3 ML INH ×4 (07:35→19:18)
[2024-11-30] MEDS: PULMICORT 0.5 MG INH ×2 (07:36→19:18)
[2024-11-30 07:56] LABS: Carbon Dioxide 41 mmol/L (22-30)
[2024-11-30] MEDS: CYMBALTA DELAYED RELEASE 60 MG PO (08:19)
[2024-11-30] MEDS: COZAAR 50 MG PO (08:19)
[2024-11-30] MEDS: PROTONIX 40 MG PO (08:19)
[2024-11-30] MEDS: MEGACE ORAL SUSPENSION 200 MG PO (08:19)
[2024-11-30] MEDS: CYMBALTA DELAYED RELEASE 20 MG PO (08:19)
[2024-11-30] MEDS: NICODERM TRANSDERMAL 14 MG TRANSDERM (08:19)
[2024-11-30] MEDS: DEPAKOTE (12 HR RELEASE) 500 MG PO ×2 (08:19→20:23)
[2024-11-30] MEDS: LOW STRENGTH ASPIRIN 81 MG PO (08:19)
[2024-11-30] MEDS: DELTASONE 40 MG PO (08:19)
[2024-11-30] MEDS: LYRICA 50 MG PO ×2 (08:22→20:23)
[2024-11-30] MEDS: XANAX 0.5 MG PO ×3 (08:22→21:40)
[2024-11-30] MEDS: MIRALAX 17 GRAMS PO (08:51)
--- NOTE | 2024-11-30 09:01 | W.PN.HOSP.TC ---
Addendum entered and electronically signed by Rhett Paige MD 11/30/24 14:43:
Addendum
Patient is having significant bladder scan readings (920, 515, 500 cc ) with no urge to void. Will do straight cath 3 times daily and start the patient on Flomax.
Encourage ambulation
End
Original Note:
Today's Communication/Plan
-
-Change to oral prednisone.
-Reduce Oxy and Xanax- patient agreed to try.
-Monitor for urinary retention
-Encourage PT
- Patient was able to pull up her records from the portal on her iPad. She seems to have excellent outpatient care and follow-ups. She is followed closely by her radiation oncologist Dr Bar who treated her lung and brain cancer. She also has
upcoming follow-ups with neurology, rheumatology and family doctor in near future. Discussed with the patient ( who is satisfied and happy with her care at [facility]) and wanted to continue care there. Sister Kaitlin, had suggested to transfer
her care to if possible but patient wanted to stay with [facility] (patient is competent-makes her own decisions), patient will have to work with her family and therapeutic case manager to continue care in the outpatient setting and secure transportation.
It is hard to establish care in different system immediately. She will need pulmonary OP follow up upon discharge.
Assessment / Plan
Assessment / Plan
Physical Exam
GENERAL: Alert , in no apparent distress, very thin/cachectic
EYE: pupils equal and reactive
NECK: Supple, no significant adenopathy.
ENT: o/p clr, mmm.
CARDIAC: S1, S2 regular rate and rhythm .
LUNGS: less rhonchi
ABDOMEN: Soft, without focal tenderness, no r/g, no cvat
NEUROLOGICAL: Alert and oriented, no focal neuro deficits
SKIN: Warm and dry, skin intact.
MUSCULOSKELETAL: No edema, well perfused. Significant diffuse muscle atrophy.
PSYCH: Normal and appropriate interaction.
Assessment and plan
#Acute hypoxic respiratory failure. SaO2 around 60-70 upon arrival, improved with oxygen supplementation/nebulizer treatment/intravenous steroid.
Will need home O2
Continue with bronchodilator therapy ATC and PRN, systemic steroid
Added Nicotine patch
# Aspiration Pneumonia POA , localized infection, not systemic or sepsis
Chest x ray seems ( my reading to it ) with RLQ infiltrates
Started on Unasyn for short course then can do Augmentin
d/w speech, video swallow showed high risk aspiration. Discussed with patient, declined n.p.o. status/feeding tube. Wanted to continue with comfort feedings.
She was made aware that high doses of opioid and benzodiazepine can impact motility of GI system in admission to cachexia/ malnutrition. She agreed to try to cut back.
# Acute COPD exacerbation due to continued tobacco use
c/w DuoNeb & Pulmicort nebulizer [id number] and as needed
s/p IV steroid for 4 days , start oral prednisone with slow taper.
GI prophylaxis with PPI
repeat CXR 11/28 no worsening.
Short course of antibiotic due to leukocytosis,
Negative blood culture, patient denies fever or chills. No cough
Appreciate pulmonary help
# Acute urinary retention
Encourage ambulation
Bladder scan
# Positive troponin, EKG nonspecific changes. Likely non ischemic troponin elevation secondary to hypoxia, no recent EKG to compare. Patient complains of shortness of breath but no specific chest pain. Troponin went down.
Appreciate cardiology
c/w Statin, ARB, low dose Aspirin
Echo showed LVEF 59%, RV dilated, Mild to moderate AR, mild TR. No signs of CHF on exam.
Monitored on telemetry
# Stage II pressure sacral deep tissue injury
Consult wound care
Barrier cream/foam
Change position and use cushion to relieve pressure
# Severe protein calorie malnutrition
Gait dysfunction
Muscle wasting
Patient has chronic illness, lives alone in [facility] and unable to care for self
Consulted nutrition
Consulted therapeutic case manager.
#Hyponatremia. No confusion
Mild
# Constipation
Abdomen is soft, non tender
c/w MiraLAX, PRN Dulcolax.
# Chronic pain syndrome with narcotic dependence. Unknown etiology, patient reported that started after treatment of cancer but cannot verify history. She agreed today to consider reducing the dose but advised to take less as needed doses.
# Chronic anxiety disorder with benzodiazepine dependency, she agreed today to reduce the dose of Xanax.
# History of brain cancer s/p resection. In remission. Last brain MRI 07/2024 showed no disease procession/ stable changes per reading.
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
Patient was able to pull up her records from the portal on her iPad. She seems to have excellent outpatient care and follow-ups. She is followed closely by her radiation oncologist Dr Bar who treated her lung and brain cancer. She also has
follow-ups with neurology, rheumatology and family doctor in near future. Discussed with the patient ( who is satisfied and happy with her care at [facility]) and wanted to continue care there. Sister Kaitlin, had suggested to transfer her care
to if possible but patient wanted to stay with [facility] (patient is competent-makes her own decisions), patient will have to work with her family and therapeutic case manager to continue care in the outpatient setting and secure transportation. It is
hard to establish care in different system immediately. She will need pulmonary OP follow up upon discharge.
# DVT prophylaxis
Total time spent to see the patient, examine the patient, review data and lab results, discuss treatment plan with patient, her sister, nursing staff around 55 minutes
Anticipated Discharge: 24 - 48 hours
Subjective/Interval History
-
Date of Service: November 30, 2024
No chest pain
No sob
Objective Data
-
Labs:
Laboratory Results
11/30/24
05:47
WBC 8.2
Hgb 13.9
Hct 43.3
Plt Count 225
Sodium 132 L
Potassium 4.1
Chloride 87 L
Carbon Dioxide 41 H
BUN 29 H
Creatinine 0.5 L
Glucose 105 H
Calcium 8.8
Vital Signs:
Vital Signs
Temp Pulse Resp BP Pulse Ox
98 F 90 18 171/99 92
11/30/24 07:24 11/30/24 07:39 11/30/24 07:39 11/30/24 07:24 11/30/24 08:10
I&O
11/29/24 11/30/24 12/01/24
06:59 06:59 06:59
Intake Total 740 / 740 840 / 840
Output Total 1435 / 1435
Balance 740 / 740 -595 / -595
--- NOTE | 2024-11-30 12:05 | W.PN.PUL3 ---
Today's Communication / Plan
-
- Agree with transition to Prednisone
- 7 days of Antibiotics and Steroids should suffice
- Assess for need for Home O2 prior to discharge
- Needs LAMA/LABA/ICS at discharge. Trelegy 100 or Breztri will be good options.
- Out patient follow up with [facility] Pulmonary
- Pulmonary team will sign off, please call as needed.
Assessment
-
64-year-old smoking female with underlying suspected COPD, depression, anxiety, chronic pain, CVA, and previous lung cancer presented with increasing shortness of breath felt to have COPD exacerbation-pulmonary consulted for shortness of breath/COPD
exacerbation 11/27/2024
COPD-suspected gold stage IV with acute exacerbation
Bedside spirometry. 11/27/24-FEV1 720 mL-30%, 17% improvement postbronchodilator
Leukocytosis
Chronic hypercapnia-ABG 11/26/2024--53/65/7.39
Mild hyperglycemia
Mild hyponatremia
Conditions present prior to admission:
Cigarette smoker.
COPD.
History of lung cancer.
History of brain cancer.
Depression/anxiety.
Chronic pain.
History of CVA.
Seizure disorder..
Aortic regurgitation-moderate by echo
Plan
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
Patient reports prior history of stage III lung cancer treated with chemotherapy and radiation and follows up with an oncologist in [facility], details unavailable for review
Patient requires admission for severe COPD exacerbation and respiratory failure
Supplemental oxygen as needed
BiPAP if needed
Duonebs continues
Pulmicort nebulizers continues
Mucolytic's
Steroids-methylprednisolone 40 mg IV every 12 hours --no change
Incentive spirometry
Acapella
Consider vest if difficulties mobilizing secretions
Consider chest physiotherapy if difficulties mobilizing secretions.
Spirometry 11/27/24-FEV1 720 mL-30%, 17% improvement postbronchodilator.
Chest x-ray 11/28/24-small bilateral pleural effusions.
Echocardiogram 11/27/24-EF 59%, moderately dilated right ventricle, mild to moderate aortic valve regurgitation.
Cardiology following.
Diuresis as tolerated
Cultures reviewed.
Unable to produce sputum
Empiric antibiotics if acute bacterial bronchitis or acute bacterial lower respiratory tree infection is suspected-ampicillin initiated
Consider Procalcitonin level if unsure whether acute respiratory tract bacterial infection exists-caveat may be negative with atypical infections
Monitor leukocytosis
Monitor blood sugars
Insulin supplementation as needed
Smoking cessation counseling ongoing
Nicotine patch
DVT prophylaxis-on Lovenox
GI prophylaxis recommended if on steroids for prolonged period-on pantoprazole
Early nutrition
Early mobilization
Reviewed with nursing
Would benefit from triple inhaler therapy such as Trelegy or Breztri at time of discharge
Outpatient pulmonary [id number], inhalers, pulmonary rehab, smoking cessation counseling, low-dose lung cancer screening CT, etc.
Diagnostic data:
Chest x-ray 06/30/2013-NAD
Chest x-ray 11/26/2024-mild blunting lateral and posterior costophrenic angles bilaterally suggesting small bilateral pleural effusions
Subjective Data
-
Date of Service:
Date of Service: November 30, 2024
Chief Complaint: Pulmonary Follow Up and Dyspnea Follow Up
Subjective:
Comfortably sitting in bed. No acute distress.
Review of Systems
Genitourinary: Other (No new symptoms reported. )
Objective Data
Data Reviewed
Vital Signs / I&O / Oxygen:
Vital Signs
Temp Pulse Resp BP Pulse Ox
98 F 92 18 171/99 92
11/30/24 07:24 11/30/24 11:21 11/30/24 11:21 11/30/24 07:24 11/30/24 08:10
Intake and Output
11/29/24 11/30/24 12/01/24
06:59 06:59 06:59
Intake Total 740 / 740 840 / 840
Output Total 1435 / 1435
Balance 740 / 740 -595 / -595
SaO2 92
Nasal Cannula flow liters per 4
minute
Physical Exam
General: Respiratory Distress (n), Comfortable and Other ( cachectic and chronically ill-appearing)
HEENT: Normocephalic, Anicteric and Moist Mucous Membranes
Cardiovascular: Regular Rhythm
Respiratory: Clear ( diminished breath sounds, prolonged expiratory time), Wheeze (n), Crackles (n), Rhonchi (n), Non-Labored Respirations, Accessory Resp Muscle Use (n) and Stridor (n)
GI: Soft, Non Distended and Non Tender
Neurology: Awake, Alert and No Motor Deficits
Skin: Warm, Good Color, Cyanosis (n), Jaundice and Rash (n)
Labs/Micro/Reports
Lab Data
11/30/24 05:47
11/30/24 05:47
Microbiology
11/26/24 15:10 Blood/Venous Blood Culture - Preliminary
No Growth in 72 hours- Final report to follow
11/26/24 13:57 Blood/Venous Blood Culture - Preliminary
No Growth in 72 hours- Final report to follow
[2024-11-30 12:45] VITALS: BP 153/100; BP 178/111; PULSE 106; O2SAT 91
[2024-11-30 15:02] VITALS: BP 152/98
--- NOTE | 2024-11-30 15:15 | CM ---
Addendum entered by Etelvina Ramires 11/30/24 15:29:
therapy recommending SNF at this time. patient resting. CM will review options with patient.
Plan; home with VN/home O2 vs SNF pending patient choice
Original Note:
Patient seen at bedside in [facility]. Patient on 4 liters O2 and patient states that she does not have homeO2 prior to admission. Patient has not had VN supports in the past. CM will continue to follow for discharge planning needs.
Plan;watch for VN and home O2 needs pending medical treatment plan
--- NOTE | 2024-11-30 15:19 | W.PN.UPDATE ---
Update Note
Progress Note Update
Cardiac status has largely remained unchanged. We have started and increased losartan during hospital stay. Her blood pressure is labile but stable. Continue to follow as an outpatient. Volume status has been stable after diuretic. Would not
diurese further. Unfortunately she is having aspiration and does not want to be n.p.o. by report. She is currently sleeping.
No further cardiac recommendations at this time. Please reconsult us if new cardiac recommendations are necessary. We could definitely follow her in the office if she is going to come here as opposed to [facility] where her care has been.
[2024-11-30] MEDS: ROXICODONE 7.5 MG PO ×2 (15:57→21:59)
[2024-11-30] MEDS: LOVENOX 40 MG SC (17:08)
[2024-11-30] MEDS: LIPITOR 40 MG PO (17:08)
[2024-11-30] MEDS: DESYREL 150 MG PO (21:40)
[2024-11-30] MEDS: SENOKOT 17.2 MG PO (21:40)
[2024-11-30] MEDS: ZANAFLEX 4 MG PO (21:40)
[2024-11-30] MEDS: FLOMAX 0.4 MG PO (21:40)
[2024-11-30 23:26] VITALS: BP 150/92
[2024-12-01] MEDS: UNASYN IV ×4 (04:31→21:25)
[2024-12-01] MEDS: ROXICODONE 7.5 MG PO ×3 (04:31→22:54)
[2024-12-01] MEDS: TYLENOL 650 MG PO ×2 (05:10→16:29)
[2024-12-01 06:00] VITALS: BMI 13.9
--- NOTE | 2024-12-01 07:12 | W.PN.HOSP.TC ---
Addendum entered and electronically signed by Crescencio Stevenson MD 12/01/24 21:55:
Attending Addendum-
I saw and evaluated the patient. I reviewed the resident�s note and agree with findings and plan as documented in the resident�s note. Sub: called by nursing re urinary retention requiring SC and also that patient is choking on food and requesting
comfort foods as opposed to being NPO. when d/w patient she said she was never told that she was aspirating and will do whatever it takes to get nutrition. 'don't tell me what you think I said, yeimy had a feeding tube before and if i need it ill take
it' Full 12 point ROS reviewed and negative except as documented Exam: Vitals reviewed in chart GEN-chronically ill appearing emaciated heart RRR lungs scattered exp wheeze abd soft NT ND pos BS LE no edema
Plan:
#Acute hypoxic respiratory failure
-Will need home O2
-Continue with bronchodilator therapy ATC and PRN, systemic steroid
-dc on inhalers when able
# Aspiration Pneumonia POA severe dysphagia
-Started on Unasyn day #5
-d/w speech, video swallow showed high risk aspiration initially declined n.p.o. status/feeding tube but now agreeable to peg tube
-c/s GI
-has been wavering with decision making, will d/w next of kin
# Acute COPD exacerbation
-c/w DuoNeb & Pulmicort nebulizer [id number] and as needed
-s/p IV steroid-> cont prednisone
-GI prophylaxis with PPI
-Appreciate pulmonary input
# Acute urinary retention
-Encourage ambulation
-place lam
# NIMI
-c-/w Statin, ARB, low dose Aspirin
-Echo showed LVEF 59%, RV dilated, Mild to moderate AR, mild TR. No signs of CHF on exam.
-Monitor on telemetry
# Stage II pressure sacral deep tissue injury-POA
-cont wound care
#HTN
- cont new losartan
# Severe protein calorie malnutrition
-Muscle wasting
-cont megace
-lives alone in [facility] and unable to care for self
-now NPO start IVF
-poor prognosis hospice appropriate
-c/s GI for PEG tube per patietn wish
#Hyponatremia
-Mild
-repeat labs in am
#Tobacco Abuse
-current smoker
-start ravinder patch, advised to quit
# Chronic pain syndrome with narcotic dependence
# Chronic anxiety disorder with benzodiazepine dependency
# History of brain cancer s/p resection. In remission. Last brain MRI 07/2024 showed no disease procession/ stable changes per reading.
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
# DVT prophylaxis-lovenox
Dispo eventual dc home alone- would benefit from AL or LTC
ACP
Patient consented to discuss, was alone, time spent explanation of advance directives, changes in health status, patient�s health care wishes if the patient becomes unable to make health decisions, goals of care, code status, and prognosis 'i dont
want aggressive interventions but a feeding tube is fine if i need it'- 16 minutes
Time spent coordinating care, review of plan of care with resident, personally reviewed previous records in EMR, med rec, labs, radiology, d/w nursing, family total time documented is exclusive of any additional time listed that was spent in advance
care planning discussion -�55 minutes
Original Note:
Today's Communication/Plan
-
- decrease supplemental O2 to target 88-92%
- consult GI for feeding tube
- lam ordered
- continue AECOPD meds: ipratropium/albuterol/budesonide/deltasone
- continue ampicillin/sulbactam
- try to call sister, Kaitlin, before rounds to involve her in the discussions
Assessment / Plan
Assessment / Plan
Assessment and plan
In summary for the 64 yo F who presented with AECOPD
# Acute COPD exacerbation due to continued tobacco use
- She is on albuterol/ipratropium, inhaled budenoside, and deltasone PO.
- 1ppd since she was a child
- has nicotine patch, she is trying to quit but reports that she has been smoking on/off over the past years.
- says cough is still greenish but better, coughing is better, dyspnea is improved
- Can decrease supplemental O2 for targeting 88-92%
- duration of meds for AECOPD can be 14 days given the severity of respiratory failure with which patient presented.
- although an abx covering aytpical (Eg. azithro or doxycycline) can be considered for antiinflammatory purposes, amox/clav can also be considered. for these reasons, given the aspiration pneumonia possibility, it may be rasonable to continue the
unasyn for 2 more days, for a total 7-day course.
# Acute hypoxic respiratory failure
- Initial O2sat 66%
- On 4L, O2 sat 96% but we can decrease to target 88-92%
- She is on albuterol/ipratropium, inhaled budenoside, and deltasone PO.
# Aspiration Pneumonia
- CXR RML/RLQ opacity; bilateral pleural effusions
- however, the aspiration pneumonia was noted to be on prior admissions.
- last WBC 8.2 (initially 12.3)
- BCx negative; repeat CXR appears unchanged from prior
- currently on ampicillin/sulbactam started 11/27 (Day # 5), consider continuing for 2 more days.
- speech modified barium swallow = high aspiration risk
- however, patient does not want to be NPO, prefers to eat and per discussion with Kaitlin (please see end of note), Manda wants a tube placed
- Will plan to consult GI on 12/02.
- per latest speech note, can provide critical meds crushed in moderately thick liquids, would recommend involving sister, and consult GI for tube placement evaluation
#Hyponatremia
- made NPO given aspiration risk
- started normal saline at 80 cc/hr
- repeat BMP in AM
# Acute urinary retention
- Lam ordered
# Nonischemic myocardial injury
- elevated troponin but nonspecific EKG changes
- most likely in the setting of acute exacberation of COPD leading to demand stress.
- troponin has decreased
- given that there was concern for volume overload, she was given IV lasix but now on losartan for the HTN since the volume status has improved per cardiology notes.
- Echo on 11/27: LVEF 59%; RV dilated, Mild to moderate AR, mild TR.
- continue atorvastatin 40mg, losartan 50mg PO, and aspirin 81mg PO
# Stage II pressure sacral deep tissue injury
Consult wound care
Barrier cream/foam
Change position and use cushion to relieve pressure
# Severe protein calorie malnutrition
- patient is very cachetic
- speech is following and deems high risk of aspiration
- CM aware
# Constipation
- Miralax and dulcolax prn
# Chronic pain syndrome with narcotic dependence.
- Unknown etiology, patient reported that started after treatment of cancer but cannot verify history.
- She agreed today to consider reducing the dose but advised to take less as needed doses.
# Chronic anxiety disorder with benzodiazepine dependency, she agreed today to reduce the dose of Xanax.
# History of brain cancer s/p resection.
- In remission. Last brain MRI 07/2024 showed no disease procession/ stable changes per reading.
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
Patient was able to pull up her records from the portal on her iPad. She seems to have excellent outpatient care and follow-ups. She is followed closely by her radiation oncologist Dr Bar who treated her lung and brain cancer. She also has
follow-ups with neurology, rheumatology and family doctor in near future. Discussed with the patient ( who is satisfied and happy with her care at [facility]) and wanted to continue care there. Sister Kaitlin, had suggested to transfer her care
to if possible but patient wanted to stay with [facility] (patient is competent-makes her own decisions), patient will have to work with her family and director case management to continue care in the outpatient setting and secure transportation. It is
hard to establish care in different system immediately. She will need pulmonary OP follow up upon discharge.
DVT ppx - lovenox 40mg
Disposition planning:
On December 01, 2024, at approximately ~16:30, I had an extensive discussion with the sister, Kaitlin, who lives approximately 10 [address] walk away from [facility]. First, I want to note that Kaitlin is not yet power of finance attorney for Manda, but
Kaitlin is in the process of securing that for legal and medical purposes. That being said, Kaitlin is Manda's next of kin (Manda does not have a or children), so in the event Manda is not able to make decisions, the decision-making would go to
Kaitlin.
Regarding the situation about what Manda would want, Kaitlin reports that Manda had previously had a feeding tube several years ago and tolerated the surgical procedure. For these reasons, Kaitlin believes that Manda would want a feeding tube during the
present admission. I did explain that Manda has provided varying answers, switching back and forth between electing for tube vs. comfort feeds, and that is why I wanted to speak with Kaitlin to better understand what Manda would want. Kaitlin believes
that Manda would want the feeding tube. Kaitlin also requested that if she can be called before rounds are starting, she would be happy to come in person and speak the team when the team is rounding.
Kaitlin Delong phone # is [phone] (sister)
Anticipated Discharge: 24 - 48 hours
Subjective/Interval History
-
Date of Service: December 01, 2024
64 yo F resented to [facility] ED on 11/26 for evaluation of shortness of breath and cough for several days. She is a smoker, 0.5ppd for 'several years.' She denies any recent fever, chills, chest pain, nausea, vomiting, constipation, diarrhea or urinary
symptoms.
In the ED on that day,
initial VS n/f O2sat 66%, tachycardic at 104 and required 4 L NC.
Troponin: 0.216 --> 0.245 --> 0.225 --> 0.161 (-11/27)
proBNP 5580
Labs n/f WBC 13.1, bicarbonate 33
ABG 7.39/53/65
EKG showed NSR
She was started on duoneb (ipratropium bromide/albuterol) qid/prn and methylprednisolone 40mg bid for an acute exacerbation of COPD. And admitted for further management
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
She primarily is in [facility], comes from home
Over her admission: speech noted that she is high aspiration risk and has possible aspiration pneumonia
Objective Data
-
Vital Signs:
Vital Signs
Temp Pulse Resp BP Pulse Ox
97.6 F 85 22 150/92 97
11/30/24 23:26 11/30/24 23:26 11/30/24 23:26 11/30/24 23:26 11/30/24 23:26
I&O
11/30/24 12/01/24 12/02/24
06:59 06:59 06:59
Intake Total 840 / 840 720 / 720
Output Total 1435 / 1435 1450 / 1450
Balance -595 / -595 -730 / -730
Review of Systems
-
History Source: Patient
Constitutional: Reports Fatigue
EENT: Reports No Symptoms Reported
Respiratory: Reports Cough and Other (some sputum, greenish, and some trouble breathing but improved)
Physical Exam
-
General: Cachectic
HEENT: Other (her voice is very faint/hoarse)
Respiratory: Wheezes (faint end-expiratory wheezes on my exam, but otherwise clear, no crackles)
Cardiac: Regular Rhythm and Other (i was not able to appreciate any murmurs)
GI: Soft
Musculoskeletal: Other (no lower extremity edema)
Skin: Warm
Neuro: Awake and Alert
Psych: Other (unclear whether she has insight into her condition)
[2024-12-01] MEDS: DUONEB 3 ML INH ×4 (07:13→20:01)
[2024-12-01] MEDS: PULMICORT 0.5 MG INH ×2 (07:13→20:01)
[2024-12-01 08:00] VITALS: BP 159/104
[2024-12-01] MEDS: CYMBALTA DELAYED RELEASE 60 MG PO (08:38)
[2024-12-01] MEDS: CYMBALTA DELAYED RELEASE 20 MG PO (08:38)
[2024-12-01] MEDS: XANAX 0.5 MG PO ×3 (08:38→21:21)
[2024-12-01] MEDS: LOW STRENGTH ASPIRIN 81 MG PO (08:38)
[2024-12-01] MEDS: COZAAR 50 MG PO (08:38)
[2024-12-01] MEDS: PROTONIX 40 MG PO (08:38)
[2024-12-01] MEDS: LYRICA 50 MG PO ×2 (08:38→21:22)
[2024-12-01] MEDS: DELTASONE 40 MG PO (08:38)
[2024-12-01] MEDS: DEPAKOTE (12 HR RELEASE) 500 MG PO ×2 (08:38→21:22)
[2024-12-01] MEDS: NICODERM TRANSDERMAL 14 MG TRANSDERM (08:40)
[2024-12-01] MEDS: MEGACE ORAL SUSPENSION 200 MG PO (08:40)
[2024-12-01] MEDS: MIRALAX 17 GRAMS PO (08:40)
--- NOTE | 2024-12-01 12:41 | WOUNDNOTE ---
"[facility] RN note: Coccyx wound picture taken for chart. Ulcer with yellow fibrin cover. Coccyx dressing changed. Heels off bed with air chair cushion. Patient reports a good appetite. Patient is very thin. Patient repositioned in bed with help from RN "mJ"Lorelei. Patient can turn self in bed. Instructed patient frequent turning and repositioning. Will follow as needed. "
[2024-12-01 15:00] VITALS: BP 148/93
--- NOTE | 2024-12-01 15:00 | PTOTSP ---
Speech Language Pathology
MACHINING AND ASSEMBLY SUPERVISOR had signed off as pt had decided on comfort feeds. MD requested MACHINING AND ASSEMBLY SUPERVISOR speak with pt this date again as she stated that no one from speech therapy discussed aspiration with her. When MACHINING AND ASSEMBLY SUPERVISOR asked if she remembered the VSE being completed, she stated
'I don't want a tube.' Reviewed results/recommendations with pt. Discussed options at this point. After repeated information, pt stated she will get a tube and drink coffee. Pt did not appear to fully comprehend, stating she was upset and not
thinking straight. Consider GI consult to discuss appropriateness of tube placement in addition to risks. Would recommend to include sister in discussion. Per RN, pt with many meds. Consider changing to IV if available. Otherwse, can provide
critical meds crushed in moderately thick liquids.
[2024-12-01] MEDS: LOVENOX 40 MG SC (16:28)
[2024-12-01] MEDS: LIPITOR 40 MG PO (16:29)
--- NOTE | 2024-12-01 16:53 | CM ---
Reviewed PT chandrikaal that indicates SNF with patient in room
She refused SNF and requested [facility] liaison form [facility] notified. She will be staying with her sister that lives at [address] [place] [address]
Remians on 4 liter NC POx 95%.
PLAn Home with [facility] Watch for oxygen needs
[2024-12-01] MEDS: NSS 1000 IV (17:52)
[2024-12-01] MEDS: ZANAFLEX 4 MG PO (21:21)
[2024-12-01] MEDS: DESYREL 150 MG PO (21:22)
[2024-12-01] MEDS: FLOMAX 0.4 MG PO (21:22)
[2024-12-01] MEDS: SENOKOT 17.2 MG PO (21:22)
[2024-12-01 23:08] VITALS: BP 138/84
[2024-12-02] MEDS: TYLENOL 650 MG PO ×3 (02:53→14:25)
[2024-12-02] MEDS: UNASYN IV ×4 (04:56→22:14)
[2024-12-02 05:49] VITALS: BMI 13.5
[2024-12-02] MEDS: NSS 1000 IV ×2 (06:41→20:26)
[2024-12-02] MEDS: ROXICODONE 7.5 MG PO ×2 (06:42→14:24)
[2024-12-02 07:00] VITALS: BP 164/94
--- NOTE | 2024-12-02 07:04 | W.PN.HOSP.TC ---
Addendum entered and electronically signed by Crescencio Stevenson MD 12/02/24 21:41:
Attending Addendum-
I saw and evaluated the patient. I reviewed the resident�s note and agree with findings and plan as documented in the resident�s note. Sub: seen with sister. patient is agreeable to PEG tube.Denies SOB CP palps fevers. Full 12 point ROS reviewed
and negative except as documented Exam: Vitals reviewed in chart GEN-chronically ill appearing cachexic heart RRR lungs decreased BS @ bases no W/R/R abd soft NT ND pos BS LE no edema lam in place
Plan:
#Acute hypoxic respiratory failure
-Will need home O2
-Continue with bronchodilator therapy ATC and PRN, systemic steroid
-dc on inhalers when able
-wean for o2 88-92%
# Aspiration Pneumonia POA severe dysphagia
-Unasyn day #09/27
-d/w speech, video swallow showed high risk aspiration
-agreeable to peg tube
-d/w GI- high risk for needing to be intubated during PEG, would start with DHT feeds- (unable to to go to SNF with DHT)
-difficult situation as patient is severe malnourished and ability to heal / successfully rehab is dependent on nutrition- would favor placing PEG sooner than later if able
-d/w POA
# Acute COPD exacerbation
-resolving
-c/w DuoNeb & Pulmicort nebulizer
-s/p IV steroid-> prednisone
-GI prophylaxis with PPI
-Appreciate pulmonary input
# Acute urinary retention
-Encourage ambulation
-cont lam for now until more ambulatory
# NIMI
-c-/w Statin, ARB, low dose Aspirin
-Echo-LVEF 59%, RV dilated, Mild to moderate AR, mild TR. No signs of CHF on exam.
-Monitor on telemetry
# Stage II pressure sacral deep tissue injury-POA
-cont wound care
#HTN
- cont new losartan
# Severe protein calorie malnutrition
-Muscle wasting
-cont megace
-lives alone in [facility] and unable to care for self
-now NPO contIVF
-poor prognosis
-eventual PEG tube start with DHT per GI
#Hyponatremia
-Mild, start IVF
-repeat labs in am
#Tobacco Abuse
-current smoker
-start ravinder patch, advised to quit
# Chronic pain syndrome with narcotic dependence
# Chronic anxiety disorder with benzodiazepine dependency
# History of brain cancer s/p resection. In remission. Last brain MRI 07/2024 showed no disease procession/ stable changes per reading.
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
# DVT prophylaxis-lovenox
Dispo eventual dc to SNF when able, patient agreeable- barrier to DC, PEG tube/nutrition
Time spent coordinating care, review of plan of care with resident, personally reviewed records in EMR, med rec, consults, notes, labs, radiology, d/w nursing GI pulm and POA/sister � 54 mins
Original Note:
Today's Communication/Plan
-
- EGD and PEG tube
- NS fluids
- trend BMP
- deltasone taper by 10mg every 48 hrs
- continue duonebs and ICS
Assessment / Plan
Assessment / Plan
Assessment and plan
In summary for the 64 yo F who presented with AECOPD
# Dysphagia, pharyngeal dysfunction
- likely attributed to prior radiation therapy, chronic smoking
- GI consulted, patient would like EGD and PEG.
- Monitor for refeeding once PEG tube is placed and feedings begin.
- Kaitlin, sister, at bedside and agrees with plan.
# Acute COPD exacerbation due to continued tobacco use
- She is on albuterol/ipratropium, inhaled budenoside
- deltasone PO taper decrease by 10mg every 48 hours until off.
- 1ppd since she was a child
- has nicotine patch, she is trying to quit but reports that she has been smoking on/off over the past years.
- Can decrease supplemental O2 for targeting 88-92%
- continue the unasyn until 12/03 (tomorrow for 7 days course)
# Acute hypoxic respiratory failure
- Initial O2sat 66%
- On 4L, O2 sat 96% but we can decrease to target 88-92%
- She is on albuterol/ipratropium, inhaled budenoside, and deltasone PO.
# Aspiration Pneumonia
- CXR RML/RLQ opacity; bilateral pleural effusions
- however, the aspiration pneumonia was noted to be on prior admissions.
- BCx negative; repeat CXR appears unchanged from prior
- speech modified barium swallow = high aspiration risk
- continue the unasyn until 12/03
- plan for EGD and PEG tube per GI
#Hyponatremia
- NPO
- Na+ 131, from 134
- ordered normal saline at 100cc/hr
- BMP in AM
# Acute urinary retention
- Lam ordered
- keep lam and trial void after PEG tube placement
# Nonischemic myocardial injury
- elevated troponin but nonspecific EKG changes
- most likely in the setting of acute exacberation of COPD leading to demand stress.
- troponin has decreased
- given that there was concern for volume overload, she was given IV lasix but now on losartan for the HTN since the volume status has improved per cardiology notes.
- Echo on 11/27: LVEF 59%; RV dilated, Mild to moderate AR, mild TR.
- continue atorvastatin 40mg, losartan 50mg PO, and aspirin 81mg PO
# Stage II pressure sacral deep tissue injury
Consult wound care
Barrier cream/foam
Change position and use cushion to relieve pressure
# Severe protein calorie malnutrition
- patient is very cachetic
- speech is following and deems high risk of aspiration
- CM aware
# Constipation
- Miralax and dulcolax prn
# Chronic pain syndrome with narcotic dependence.
- Unknown etiology, patient reported that started after treatment of cancer but cannot verify history.
- She agreed today to consider reducing the dose but advised to take less as needed doses.
# Chronic anxiety disorder with benzodiazepine dependency, she agreed today to reduce the dose of Xanax.
# History of brain cancer s/p resection.
- In remission. Last brain MRI 07/2024 showed no disease procession/ stable changes per reading.
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
Patient was able to pull up her records from the portal on her iPad. She seems to have excellent outpatient care and follow-ups. She is followed closely by her radiation oncologist Dr Bar who treated her lung and brain cancer. She also has
follow-ups with neurology, rheumatology and family doctor in near future. Discussed with the patient ( who is satisfied and happy with her care at [facility]) and wanted to continue care there. Sister Kaitlin, had suggested to transfer her care
to if possible but patient wanted to stay with [facility] (patient is competent-makes her own decisions), patient will have to work with her family and case managers to continue care in the outpatient setting and secure transportation. It is
hard to establish care in different system immediately. She will need pulmonary OP follow up upon discharge.
DVT ppx - lovenox 40mg
Disposition planning: likely to SNF, patient is okay with SNF on O2, after PEG placement.
Spoke with Kaitlin at bedside, she is agreeable to EGD and PEG tube placement.
Kaitlin Baljeet phone # is [phone] (sister)
Anticipated Discharge: > 48 hours
Subjective/Interval History
-
Date of Service: December 02, 2024
feels okay, is AOx3 when examined at bedside this morning
Objective Data
-
Labs:
Laboratory Results
12/02/24
06:05
WBC Pending
Hgb Pending
Hct Pending
Plt Count Pending
Sodium Pending
Potassium Pending
Chloride Pending
Carbon Dioxide Pending
BUN Pending
Creatinine Pending
Glucose Pending
Calcium Pending
WBC 6.2
Hgb 13.5
Plt 215
na+ 131
Vital Signs:
Vital Signs
Temp Pulse Resp BP Pulse Ox
97.8 F 94 20 138/84 94
12/01/24 23:08 12/01/24 23:08 12/01/24 23:08 12/01/24 23:08 12/01/24 23:08
I&O
12/01/24 12/02/24 12/03/24
06:59 06:59 06:59
Intake Total 720 / 720 780 / 780
Output Total 1450 / 1450 1950 / 1950
Balance -730 / -730 -1170 / -1170
Review of Systems
-
History Source: Patient
Constitutional: Reports Fatigue
EENT: Reports No Symptoms Reported and Other (hoarse voice)
Respiratory: Reports Cough and Other (some sputum, greenish, and some trouble breathing but improved)
Cardiac: Reports No Symptoms
Abdomen/GI: Reports Other (dysphagia)
Physical Exam
-
General: Cachectic
HEENT: Other (her voice is very faint/hoarse)
Respiratory: Wheezes (faint end-expiratory wheezes on my exam, but otherwise clear, no crackles)
Cardiac: Regular Rhythm and Other (i was not able to appreciate any murmurs)
GI: Soft
Musculoskeletal: Other (no lower extremity edema)
Skin: Warm
Neuro: AO x 3
[2024-12-02] MEDS: PULMICORT 0.5 MG INH ×2 (07:14→19:14)
[2024-12-02] MEDS: DUONEB 3 ML INH ×4 (07:14→19:14)
[2024-12-02 07:58] LABS: Hematocrit 42.0 % (37.0-47.0); Hemoglobin 13.5 g/dL (12.0-16.0); Mean Corp Hgb Conc. 32.1 g/dL (33.0-37.0); Mean Corpuscular Volume 89.2 fL (81.0-99.0); Platelet Count 215 10^3/uL (130-400); Red Cell Dist. Width 17.2 % (11.5-14.5)
[2024-12-02] MEDS: LYRICA 50 MG PO ×2 (08:08→20:26)
[2024-12-02] MEDS: XANAX 0.5 MG PO ×3 (08:08→20:35)
[2024-12-02] MEDS: NICODERM TRANSDERMAL 14 MG TRANSDERM (08:15)
[2024-12-02] MEDS: CYMBALTA DELAYED RELEASE 20 MG PO (08:15)
[2024-12-02] MEDS: CYMBALTA DELAYED RELEASE 60 MG PO (08:17)
[2024-12-02] MEDS: PROTONIX 40 MG PO (08:18)
[2024-12-02] MEDS: MEGACE ORAL SUSPENSION 200 MG PO (08:18)
[2024-12-02] MEDS: LOW STRENGTH ASPIRIN 81 MG PO (08:18)
[2024-12-02] MEDS: DEPAKOTE (12 HR RELEASE) 500 MG PO ×2 (08:18→20:26)
[2024-12-02] MEDS: COZAAR 50 MG PO (08:18)
[2024-12-02] MEDS: MIRALAX PO (08:19)
[2024-12-02] MEDS: DELTASONE 40 MG PO (08:19)
[2024-12-02 08:48] LABS: Blood Urea Nitrogen 27 mg/dl (7-17); Calcium 8.4 mg/dl (8.4-10.2); Carbon Dioxide 35 mmol/L (22-30); Chloride 91 mmol/L (98-107); Estimated Creatinine Clearance 53 ml/min; Glucose 74 mg/dl (70-99); Potassium 4.1 mmol/L (3.5-5.1); Sodium 131 mmol/L (135-145); eGFR > 60.00
--- NOTE | 2024-12-02 08:57 | CON.GI ---
Addendum entered and electronically signed by Nadir Pereyra MD 12/02/24 11:24:
I saw and examined the patient.
The ROUTE SPECIALIST or PA's note was reviewed and I agree with the note.
Comment:
Pt is a 64 y/o with a hx of lung cancer, resected brain met, prior radiation, chemo seizures admitted with COPD exacerbation, ?CHF. Notes oropharyngeal dysphagia. Speech note shows failed swallow test
abd: soft, nontender
impression:
lung cancer
copd
significant oropharynx dysphagia
plan:
PEG if agreeable when stable from cardiopulmonary standpoint
Original Note:
Consultation
-
Date/Time Consultation Requested: 12/02/24 0732
Date/Time Consultation Performed: 12/02/24 0900
Requesting Provider: Prabhakar Linares MD
Performing Provider: TIA Skinner, Nadir Pereyra MD
Reason for Consultation: peg evaluation
Medical History
Chief Complaint / HPI
Chief Complaint: dysphagia
History of Present Illness:
Pt is a 64yo with hx prior peg years ago with wt loss, lung CA (pt recall left upper lobe)2017 with prior radiation and chemo recurrence with mets to brain with prior brain surgery and radiation in 2023 following at [facility], seizures,
anxiety/depression, HTN, sacral wound, and chronic pain on chronic narcotics with admission with speech difficulty, COPD exacerbation with elevated troponin and concern for CHF on admission with cardiology and pulm evaluation. She has been seen
by speech therapy with concern for pharyngeal stasis and inability to clear pharyngeal residue with aspiration. Pt has decided on comfort foods and initially declined peg but now agreeable to peg.
In review with patient she admits to some difficulty with voice and swallowing over last 2-3 weeks. She also admits to wt loss. She was 125 lbs and wt down to 80 lbs. She had feeling of food sticking in upper throat and unable to clear. She
also had mild odynophagia. She also admits to constipation with pain med use and last stool 1 week ago but has not been eating much. She denies GERD, nausea, vomiting, abdominal pain, diarrhea, or rectal bleeding. Last colonoscopy several weeks
ago recalls as normal. No prior EGD. No NSAID use.
Past Medical History
Past Medical History: Cancer (brain CA, lung CA with chemo and radiation ), CVA, HTN, Seizures, Psychiatric (anxiety/depression) and Other (chronic pain, tobacco abuse )
Past Surgical History: Brain and Other (prior peg )
Social History
Tobacco: Smoker
Alcohol: None
Drug: None
Personal: Single
Living: Alone
Family History
Family History: Reviewed & Not Pertinent
Allergies / Home Medications
Allergy/AdvReac Type Severity Reaction Status Date / Time
codeine Allergy Unknown Verified 11/26/24 12:57
�Medication �Instructions �Recorded
albuterol sulfate 90 mcg/actuation 2 puff inhalation R Q6HPRN PRN sob 11/26/24
aerosol inhaler
alprazolam 0.5 mg tablet (Xanax) 0.5 mg PO QID Mental Health/Anxiety 11/26/24
divalproex 125 mg capsule,delayed 500 mg PO BID Neurological 11/26/24
release sprinkle Condition
duloxetine 20 mg capsule,delayed 20 mg PO DAILY with 60mg 11/26/24
release
duloxetine 60 mg capsule,delayed 60 mg PO DAILY Depression 11/26/24
release
megestrol 400 mg/10 mL (40 mg/mL) 200 mg PO DAILY Hormonal Agent 11/26/24
oral suspension
oxycodone 10 mg tablet 10 mg PO Q6HPRN PRN severe pain 11/26/24
pregabalin 50 mg capsule (Lyrica) 50 mg PO BID Neurological Condition 11/26/24
tizanidine 4 mg tablet 4 mg PO HS Muscle Spasms 11/26/24
trazodone 150 mg tablet 150 mg PO HS Sleep 11/26/24
Review of Systems
-
History Source: Patient and Family
Constitutional: Reports Weight Loss (30-40 lbs )
EENT: Reports No Symptoms
Respiratory: Reports Trouble Breathing (on admission with some improvement )
Cardiac: Reports No Symptoms
Abdomen/GI: Reports Constipated
: Reports Difficulty Voiding
Musculoskeletal: Reports Other (chronic back, shoulder pain)
Skin: Reports No Symptoms
Neurological: Reports Weakness
Endocrine: Reports No Symptoms
Hematologic/Lymphatic: Reports No Symptoms
Vital Signs
Temp Pulse Resp BP Pulse Ox
97.7 F 89 16 164/94 90
12/02/24 07:00 12/02/24 07:15 12/02/24 07:15 12/02/24 08:18 12/02/24 07:15
Physical Exam
Exam
General: Other (thin appearing with soft voice )
HEENT: Normocephalic and Anicteric
Respiratory: Other (course cough -- noted sat down to 80's while off O2 this am )
Cardiac: Regular Rhythm
GI: Soft, Non Tender and Non Distended
Musculoskeletal: No Clubbing and No Cyanosis
Skin: Warm and Dry
Neuro: Awake, Alert, AO x 3 and Other (soft voice )
Psych: Calm
Results
WBC 6.2 10^3/uL (4.8-10.8) 12/02/24 06:05
Hgb 13.5 g/dL (12.0-16.0) 12/02/24 06:05
Hct 42.0 % (37.0-47.0) 12/02/24 06:05
MCV 89.2 fL (81.0-99.0) 12/02/24 06:05
Plt Count 215 10^3/uL (130-400) 12/02/24 06:05
Absolute Neuts (auto) 9.4 10^3/uL (1.4-6.5) H 11/27/24 07:49
Sodium 131 mmol/L (135-145) L 12/02/24 06:05
Potassium 4.1 mmol/L (3.5-5.1) 12/02/24 06:05
Chloride 91 mmol/L (98-107) L 12/02/24 06:05
Carbon Dioxide 35 mmol/L (22-30) H 12/02/24 06:05
BUN 27 mg/dl (7-17) H 12/02/24 06:05
Creatinine 0.5 mg/dL (0.6-1.0) L 12/02/24 06:05
Calcium 8.4 mg/dl (8.4-10.2) 12/02/24 06:05
Total Bilirubin 0.7 mg/dl (0.2-1.3) 11/26/24 13:57
AST 20 U/L (14-36) 11/26/24 13:57
ALT 11 U/L (0-35) 11/26/24 13:57
Alkaline Phosphatase 55 U/L (38-126) 11/26/24 13:57
Diagnostic Image Results:
11/28/24 Chest X ray
Small bilateral pleural effusions.
Nonspecific opacities within the medial lung apices, possibly scarring or post radiation changes.
Prior GI Procedures:
EGD: none
Colonoscopy: last several weeks ago recall as normal
Assessment / Plan
-
Pt is a 64yo with hx prior peg years ago with wt loss, lung CA (pt recall left upper lobe)2018 with prior radiation and chemo recurrence with mets to brain with prior brain surgery and radiation in 2023 following at [facility], seizures,
anxiety/depression, HTN, sacral wound, and chronic pain on chronic narcotics with admission with speech difficulty, COPD exacerbation with elevated troponin and concern for CHF on admission with cardiology and pulm evaluation. She has been seen
by speech therapy with concern for pharyngeal stasis and inability to clear pharyngeal residue with aspiration. Pt has decided on comfort foods and initially declined peg but now agreeable to peg.
-dysphagia wither pharyngeal stasis on VSE
-dystonia
-wt loss
-constipation
-COPD exacerbation on admission
-elevated troponin
-CHF on admission
-hx prior peg with wt loss in past
-hyponatremia
other med problems:
-lung Ca 2018 with prior radiation and chemo recurrence with mets to brain with prior brain surgery and radiation in 2023
-hx seizures
-anxiety/depression
-HTN
-sacral wound
-chronic pain with chronic narcotic use
-tobacco abuse
PLAN:
Etiology of dysphagia related to pharyngeal dysfunction from prior radiation vs other
pt also with significant wt loss
she is now agreeable for EGD and peg
t/c neurology eval as recommended by speech
will review with pulm and medical team for pulm optimization as still sat in 80's this AM with O2 was off this am and currently on 4 liters
cont NPO
reconsult dietary to tube feeds recs
if prolonged optimization consider temp DHT
hold Lovenox and add compression stockings
cont Miralax and senna if able to take--- will give Dulcolax today as no stool in 1 week
cont PPI with steroid use
I updated sister on plan
-
-
Thank you for consultation and allowing me to participate in the patient's care. Please call the cat wagon operator GI physician during the after hours with any questions or concerns.
--- NOTE | 2024-12-02 10:11 | VNURNOTE ---
Home Health Liaison met with patient at bedside to discuss [facility] nurse/therapy, visits, schedule and homebound status. Patient is agreeable and understands that visits at home will be 2-3 x per week to assess and teach medical management.
Watching for new home 02 needs. patient confirms she is going home w/ her sister Kaitlin. Kaitlin's address is [facility]. Aware and agreeable of pet policy. Patient is aware that [facility] will contact them for start of care in 1-2 days after discharge from
.
[facility] referral completed in [facility].
--- NOTE | 2024-12-02 10:40 | CM ---
Addendum entered by Cynthia Callahan RN 12/02/24 16:10:
PLAN for Discharge changed Pt is for Peg tube placement tomorrow and will be started on tube feeding .
Pt remains of oxygen .
Sister Katiana and Pt agreed on SNF [facility].
Will need PT OT Postop ordered.
Pt will need accepting SNF .
Pt will need to be tolerating tube feeding prior to dc to SNF .
Original Note:
Pt refused SNF and requested [facility].
Pt remains on 5 iter NC Pox 90% .
Will need home oxygen test
Watch for noxygen needs
[facility] liaison from [facility] notified. She will be staying with her sister that lives at [address] [place] [address]
PLAn Home with [facility] Watch for oxygen needs
[2024-12-02 13:10] VITALS: BP 149/92; PULSE 105; O2SAT 88
[2024-12-02 13:34] VITALS: BP 149/92; PULSE 105; O2SAT 91
[2024-12-02] MEDS: DULCOLAX 10 MG RECTAL (14:24)
[2024-12-02 15:00] VITALS: BP 160/96
[2024-12-02] MEDS: LIPITOR 40 MG PO (17:17)
--- NOTE | 2024-12-02 17:21 | W.PN.PUL3 ---
Today's Communication / Plan
-
Proceed with PEG tube placement when able, high risk for pulmonary complications but procedure cannot wait for 4 to 6 weeks in the ideal situation.
Continue with nebulizers
Continue oxygen pulm patient 2 L per
Prednisone taper
Antibiotics
Secretion clearance interventions
Will follow postoperatively.
Assessment
-
64-year-old smoking female with underlying suspected COPD, depression, anxiety, chronic pain, CVA, and previous lung cancer presented with increasing shortness of breath felt to have COPD exacerbation-pulmonary consulted for shortness of breath/COPD
exacerbation 11/27/2024
COPD-suspected gold stage IV with acute exacerbation
Bedside spirometry. 11/27/24-FEV1 720 mL-30%, 17% improvement postbronchodilator
Leukocytosis
Chronic hypercapnia-ABG 11/26/2024--53/65/7.39
Mild hyperglycemia
Mild hyponatremia
Conditions present prior to admission:
Cigarette smoker.
COPD.
History of lung cancer.
History of brain cancer.
Depression/anxiety.
Chronic pain.
History of CVA.
Seizure disorder..
Aortic regurgitation-moderate by echo
Plan
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
Patient reports prior history of stage III lung cancer treated with chemotherapy and radiation and follows up with an oncologist in [facility], details unavailable for review
Patient requires admission for severe COPD exacerbation and respiratory failure
Remains on low rate supplemental oxygen- 2 L improved
No longer bronchospastic- but mild bilateral ronchi
Continue nebulizer regimen while in the hospital: DuoNebs/Pulmicort.
Mucolytic's
Prednisone taper, decrease by 10 mg every 48 hours to off.
Incentive spirometry
Acapella-encourage
-
Spirometry 11/27/24-FEV1 720 mL-30%, 17% improvement postbronchodilator.
Chest x-ray 11/28/24-small bilateral pleural effusions.
-
Reevaluated patient for preoperatory pulmonary assessment.
In the ideal situation, would wait at least 4 weeks for complete recovery from acute exacerbation, in this case PEG tube placement should be performed sooner rather than later in this patient with significant chronic microaspiration and high risk of
pneumonia and NPO status and significant weight loss, malnutrition.
Also may increase risk of readmission with recurrent microaspiration.
Okay to proceed with PEG tube placement without additional interventions. Patient is high risk for pulmonary complications including pneumonia, respiratory failure require mechanical ventilation, atelectasis. In the other hand patient at high risk
for aspiration pneumonia and recurrent readmissions to the hospital.
Echocardiogram 11/27/24-EF 59%, moderately dilated right ventricle, mild to moderate aortic valve regurgitation.
Cardiology following.
Diuresis as tolerated
Possible aspiration pneumonia
Cultures reviewed.
Unable to produce sputum
Empiric antibiotics if acute bacterial bronchitis or acute bacterial lower respiratory tree infection is suspected-ampicillin initiated-complete 7 days.
Afebrile, no leukocytosis resolved
Monitor blood sugars
Insulin supplementation as needed
Smoking cessation counseling ongoing
Nicotine patch
DVT prophylaxis-on Lovenox
GI prophylaxis recommended if on steroids for prolonged period-on pantoprazole
Would benefit from triple inhaler therapy such as Trelegy or Breztri at time of discharge
Outpatient pulmonary [id number], inhalers, pulmonary rehab, smoking cessation counseling, low-dose lung cancer screening CT, etc.
Diagnostic data:
Chest x-ray 06/30/2013-NAD
Chest x-ray 11/26/2024-mild blunting lateral and posterior costophrenic angles bilaterally suggesting small bilateral pleural effusions
Subjective Data
-
Date of Service:
Date of Service: December 02, 2024
Chief Complaint: Pulmonary Follow Up and Dyspnea Follow Up
Subjective:
No new pulmonary complaints
GI correspondence reviewed planning for possible PEG tube when able.
Objective Data
Data Reviewed
Vital Signs / I&O / Oxygen:
Vital Signs
Temp Pulse Resp BP Pulse Ox
97.5 F 98 16 160/96 92
12/02/24 15:00 12/02/24 15:36 12/02/24 15:36 12/02/24 15:00 12/02/24 15:36
Intake and Output
12/01/24 12/02/24 12/03/24
06:59 06:59 06:59
Intake Total 720 / 720 780 / 780
Output Total 1450 / 1450 1950 / 1950
Balance -730 / -730 -1170 / -1170
SaO2 92
Nasal Cannula flow liters per 3
minute
Physical Exam
General: Respiratory Distress (n), Comfortable and Other ( cachectic and chronically ill-appearing)
HEENT: Normocephalic, Anicteric and Moist Mucous Membranes
Cardiovascular: Regular Rhythm
Respiratory: Clear ( diminished breath sounds, prolonged expiratory time), Wheeze (n), Crackles (n), Rhonchi (n), Non-Labored Respirations, Accessory Resp Muscle Use (n) and Stridor (n)
GI: Soft, Non Distended and Non Tender
Neurology: Awake, Alert and No Motor Deficits
Skin: Warm, Good Color, Cyanosis (n), Jaundice and Rash (n)
Labs/Micro/Reports
Lab Data
12/02/24 06:05
12/02/24 06:05
Microbiology
11/26/24 15:10 Blood/Venous Blood Culture - Final
No Growth - Final Report
11/26/24 13:57 Blood/Venous Blood Culture - Final
No Growth - Final Report
[2024-12-02] MEDS: FLOMAX 0.4 MG PO (20:27)
[2024-12-02] MEDS: SENOKOT PO (20:28)
[2024-12-02] MEDS: ZANAFLEX 4 MG PO (20:35)
[2024-12-02] MEDS: DESYREL 150 MG PO (20:35)
[2024-12-02 23:59] VITALS: BP 158/95
[2024-12-03] MEDS: ROXICODONE 7.5 MG PO ×2 (01:14→08:21)
[2024-12-03] MEDS: XANAX 0.5 MG PO ×2 (01:36→10:05)
--- NOTE | 2024-12-03 01:44 | PTCARENOTE ---
Pt states she is feeling very nervous about surgery and asking for more xanax. PROGRAM SPECIALIST notified and ordered one time dose 0.5 mg.
[2024-12-03] MEDS: UNASYN IV ×3 (04:26→17:31)
[2024-12-03 05:50] VITALS: BMI 13.7
[2024-12-03 07:00] VITALS: BP 158/95
--- NOTE | 2024-12-03 07:32 | W.PN.PUL3 ---
Today's Communication / Plan
-
Reviewed her perioperative risk which would be high given her severe COPD (FEV1 30%)
Will check CXR/proBNP again as her cardiac status should be optimized as well prior to
GI following for PEG this week, timing to be decided
We will follow for any postoperative complications
Assessment
-
64-year-old smoking female with underlying suspected COPD, depression, anxiety, chronic pain, CVA, and previous lung cancer presented with increasing shortness of breath felt to have COPD exacerbation-pulmonary consulted for shortness of breath/COPD
exacerbation 11/27/2024
COPD-suspected gold stage IV with acute exacerbation
Bedside spirometry. 11/27/24-FEV1 720 mL-30%, 17% improvement postbronchodilator
Leukocytosis
Chronic hypercapnia-ABG 11/26/2024--.39
Mild hyperglycemia
Mild hyponatremia
Conditions present prior to admission:
Cigarette smoker.
COPD.
History of lung cancer.
History of brain cancer.
Depression/anxiety.
Chronic pain.
History of CVA.
Seizure disorder..
Aortic regurgitation-moderate by echo
Plan
Respiratory decompensation consistent with underlying significant COPD with acute exacerbation--FEV1 30%
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
Patient reports prior history of stage III lung cancer treated with chemotherapy and radiation and follows up with an oncologist in [facility], details unavailable for review
Patient requires admission for severe COPD exacerbation and respiratory failure
Remains on low rate supplemental oxygen- 2 L improved
No longer bronchospastic- but mild bilateral rhonchi noted
Continue nebulizer regimen while in the hospital: DuoNebs/Pulmicort.
Mucolytic's
Prednisone taper, decrease by 10 mg every 48 hours to off. Decreased to 30mg today
Incentive spirometry
Acapella-encouraged
GI planning for PEG placement, asked for re-eval
Planning this week
Re-evaluated patient for pre-operative pulmonary assessment--
In the ideal situation, would wait at least 4 weeks for complete recovery from acute exacerbation, in this case PEG tube placement should be performed sooner rather than later in this patient with significant chronic microaspiration and high risk of
pneumonia and NPO status and significant weight loss, malnutrition.
Also may increase risk of readmission with recurrent microaspiration.
Okay to proceed with PEG tube placement without additional interventions.
Patient is high risk for pulmonary complications including pneumonia, respiratory failure require mechanical ventilation, atelectasis.
In the other hand patient at high risk for aspiration pneumonia and recurrent readmissions to the hospital.
She is aware of her risk
Last exposure to anesthesia about 1 year ago, she reports handling it well
Component of HF on this admission, proBNP 5580
CXR with bilateral effusions
Had been getting diuresis but held now
Cardiology following, last seen 11/30
I would resume diuresis as tolerated, repeat proBNP and CXR today
Possible aspiration pneumonia
Cultures reviewed.
Unable to produce sputum
Empiric antibiotics if acute bacterial bronchitis or acute bacterial lower respiratory tree infection is suspected-ampicillin initiated-complete 7 days.
Afebrile, no leukocytosis resolved
Can check PCT to r/o
Smoking cessation counseling ongoing
Nicotine patch
DVT prophylaxis-on Lovenox
GI prophylaxis recommended if on steroids for prolonged period-on pantoprazole
Would benefit from triple inhaler therapy such as Trelegy or Breztri at time of discharge
Outpatient pulmonary [id number], inhalers, pulmonary rehab, smoking cessation counseling, low-dose lung cancer screening CT, etc.
We will follow in the event of adverse event postop
Diagnostic data:
Spirometry 11/27/24-FEV1 720 mL-30%, 17% improvement postbronchodilator.
Chest x-ray 11/28/24-small bilateral pleural effusions.
Chest x-ray 11/26/2024-mild blunting lateral and posterior costophrenic angles bilaterally suggesting small bilateral pleural effusions
Chest x-ray 06/30/2013-NAD
Echocardiogram 11/27/24-EF 59%, moderately dilated right ventricle, mild to moderate aortic valve regurgitation.
Total time spent on this consultation/encounter __51__ minutes which includes review of history, physical exam, medications, laboratory data, personal review of imaging, extensive review of outpatient records, discussion with care team and
respiratory therapy.
Subjective Data
-
Date of Service:
Date of Service: December 03, 2024
Chief Complaint: Pulmonary Follow Up and Dyspnea Follow Up
Subjective:
Remains chronically ill appearing
No new complaints
Objective Data
Data Reviewed
Vital Signs / I&O / Oxygen:
Vital Signs
Temp Pulse Resp BP Pulse Ox
97.3 F 97 18 158/95 96
12/02/24 23:59 12/02/24 23:59 12/02/24 23:59 12/02/24 23:59 12/03/24 07:27
Intake and Output
12/02/24 12/03/24 12/04/24
06:59 06:59 06:59
Intake Total 780 / 780 1510 / 1510
Output Total 1950 / 1950 2024
Balance -1170 / -1170 -515 / -515
SaO2 96
Nasal Cannula flow liters per 3
minute
Physical Exam
General: Respiratory Distress (n), Comfortable and Other ( cachectic and chronically ill-appearing)
HEENT: Normocephalic, Anicteric, Moist Mucous Membranes and Other (Whisper noted)
Cardiovascular: Regular Rhythm
Respiratory: Wheeze (n), Crackles (n), Rhonchi (bilateral ronchi at bases), Non-Labored Respirations, Accessory Resp Muscle Use (n) and Stridor (n)
GI: Soft, Non Distended and Non Tender
Neurology: Awake, Alert, Oriented and No Motor Deficits
Skin: Warm, Good Color, Cyanosis (n), Jaundice and Rash (n)
Labs/Micro/Reports
Microbiology
11/26/24 15:10 Blood/Venous Blood Culture - Final
No Growth - Final Report
11/26/24 13:57 Blood/Venous Blood Culture - Final
No Growth - Final Report
[2024-12-03 07:59] LABS: Hematocrit 42.3 % (37.0-47.0); Hemoglobin 14.2 g/dL (12.0-16.0); Mean Corp Hgb Conc. 33.6 g/dL (33.0-37.0); Mean Corpuscular Volume 86.0 fL (81.0-99.0); Platelet Count 216 10^3/uL (130-400); Red Cell Dist. Width 17.0 % (11.5-14.5)
--- NOTE | 2024-12-03 08:10 | W.PN.HOSP.TC ---
Addendum entered and electronically signed by Crescencio Stevenson MD 12/03/24 21:51:
Attending Addendum-
I saw and evaluated the patient. I reviewed the resident�s note and agree with findings and plan as documented in the resident�s note. Sub: seen DHT in. States it needs to go in further. otherwise no other complaints Denies SOB CP palps fevers.
Full 12 point ROS reviewed and negative except as documented Exam: Vitals reviewed in chart GEN- cachectic HEENT DHT taped to nares. heart RRR lungs decreased BS @ bases no W/R/R abd soft NT ND pos BS LE no edema lam in place
Plan:
#Acute hypoxic respiratory failure
-likely will need home O2
-Continue with bronchodilator therapy ATC and PRN, systemic steroid
-dc on inhalers when able
-wean for o2 88-92%, down to 2L
# Aspiration Pneumonia POA/ severe dysphagia
-complete Unasyn day #10/27
-d/w speech, video swallow showed high risk aspiration
-agreeable to peg tube
-d/w GI- high risk for needing to be intubated during PEG in this state
-start with DHT feeds (unable to to go to SNF with DHT) tube placed 12/03
-monitor closely for refeeding syndrome- daily CMP- mag phos start thiamine start slow and advance to goal
-difficult situation as patient is severe malnourished and ability to heal / successfully rehab is dependent on nutrition- hopeful can place PEG sooner than later
-d/w POA
# Acute COPD exacerbation
-resolving, weaning o2
-c/w DuoNeb & Pulmicort nebulizer
-prednisone taper
-GI prophylaxis with PPI
-Appreciate pulmonary input
# Acute urinary retention
-Encourage ambulation
-cont lam for now until more ambulatory
-TOV in am
# NIMI
-c-/w Statin, ARB, low dose Aspirin
-Echo-LVEF 59%, RV dilated, Mild to moderate AR, mild TR. No signs of CHF on exam.
-Monitor on telemetry
# Stage II pressure sacral deep tissue injury-POA
-cont wound care
#HTN
- cont new losartan
# Severe protein calorie malnutrition
-Muscle wasting
-DC megace now with TF- TE risk
-lives alone in [facility] and unable to care for self
-cont NPO
-poor prognosis
-eventual PEG tube start with DHT
#Hyponatremia
-Mild, cont TF
-repeat labs in am
#Hypokalemia- replete
#Tobacco Abuse
-current smoker
-cont ravinder patch, advised to quit
# Chronic pain syndrome with narcotic dependence
# Chronic anxiety disorder with benzodiazepine dependency
# History of brain cancer s/p resection. In remission. Last brain MRI 07/2024 showed no disease procession/ stable changes per reading.
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
# DVT prophylaxis-lovenox
Dispo eventual dc to SNF when able, patient agreeable- barrier to DC-PEG tube/nutrition
Time spent coordinating care, review of plan of care with resident, personally reviewed records in EMR, med rec, consults, notes, labs, radiology, d/w nursing GI � 53 mins
Original Note:
Today's Communication/Plan
-
- place dobhoff tube
- replete K+
- start feeds after tube and repletion; monitor for refeeding
- prednisone taper start today
- continue duoneb/budesonide
Assessment / Plan
Assessment / Plan
Assessment and plan
In summary for the 64 yo F who presented with AECOPD
# Dysphagia, pharyngeal dysfunction
- likely attributed to prior radiation therapy, chronic smoking
- GI to place DHT today
- Replete K+ before feeds can begin, for 12/03 dinner
- Monitor for refeeding once tube is placed and feedings begin.
- Check BMP/Mg/Phos at scheduled intervals, then daily BMP
# Hypokalemia
- K+ 3.3
- replete with KCl Riders
- follow with BMP
# Acute COPD exacerbation due to continued tobacco use
- She is on albuterol/ipratropium, inhaled budenoside
- deltasone PO 30mg starting today; taper is beginning
- 1ppd since she was a child
- has nicotine patch, she is trying to quit but reports that she has been smoking on/off over the past years.
- Can decrease supplemental O2 for targeting 88-92%
- unasyn-complete 7 day course
# Acute hypoxic respiratory failure
- Initial O2sat 66%
- On 4L, O2 sat 96% but we can decrease to target 88-92%
- She is on albuterol/ipratropium, inhaled budenoside, and deltasone PO (taper).
# Aspiration Pneumonia
- CXR RML/RLQ opacity; bilateral pleural effusions
- however, the aspiration pneumonia was noted to be on prior admissions.
- BCx negative; repeat CXR appears unchanged from prior
- speech modified barium swallow = high aspiration risk
- continue the unasyn until 12/04 (7 day total)
- GI to place dobhoff
#Hyponatremia
- NPO 129 from 131, from 134
- complete the normal saline at 100cc/hr; do not renew since feeds are to begin
- BMP in AM
# Acute urinary retention
- Lam in place
- keep lam and trial void after feeds
# Nonischemic myocardial injury
- elevated troponin but nonspecific EKG changes
- most likely in the setting of acute exacberation of COPD leading to demand stress.
- troponin has decreased
- given that there was concern for volume overload, she was given IV lasix but now on losartan for the HTN since the volume status has improved per cardiology notes.
- Echo on 11/27: LVEF 59%; RV dilated, Mild to moderate AR, mild TR.
- continue atorvastatin 40mg, losartan 50mg PO, and aspirin 81mg PO
# Stage II pressure sacral deep tissue injury
Consult wound care
Barrier cream/foam
Change position and use cushion to relieve pressure
# Severe protein calorie malnutrition
- patient is very cachetic
- speech is following and deems high risk of aspiration
- CM aware
# Constipation
- Miralax and dulcolax prn
# Chronic pain syndrome with narcotic dependence.
- Unknown etiology, patient reported that started after treatment of cancer but cannot verify history.
- She agreed today to consider reducing the dose but advised to take less as needed doses.
# Chronic anxiety disorder with benzodiazepine dependency, she agreed today to reduce the dose of Xanax.
# History of brain cancer s/p resection.
- In remission. Last brain MRI 07/2024 showed no disease procession/ stable changes per reading.
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
Patient was able to pull up her records from the portal on her iPad. She seems to have excellent outpatient care and follow-ups. She is followed closely by her radiation oncologist Dr Bar who treated her lung and brain cancer. She also has
follow-ups with neurology, rheumatology and family doctor in near future. Discussed with the patient ( who is satisfied and happy with her care at [facility]) and wanted to continue care there. Sister Kaitlin, had suggested to transfer her care
to if possible but patient wanted to stay with [facility] (patient is competent-makes her own decisions), patient will have to work with her family and pillowcase cleaner to continue care in the outpatient setting and secure transportation. It is
hard to establish care in different system immediately. She will need pulmonary OP follow up upon discharge.
DVT ppx - lovenox 40mg
Disposition planning: likely to SNF, patient is okay with SNF on O2
Kaitlin Delong phone # is [phone] (sister)
Anticipated Discharge: > 48 hours
Subjective/Interval History
-
Date of Service: December 03, 2024
feels okay this morning.
Objective Data
-
Labs:
Laboratory Results
12/03/24
07:24
WBC 10.6
Hgb 14.2
Hct 42.3
Plt Count 216
Sodium Pending
Potassium Pending
Chloride Pending
Carbon Dioxide Pending
BUN Pending
Creatinine Pending
Glucose Pending
Calcium Pending
mag 1.9
pos 2.5
calcium 8.9
K 3.3
Vital Signs:
Vital Signs
Temp Pulse Resp BP Pulse Ox
97.3 F 97 18 158/95 96
12/02/24 23:59 12/02/24 23:59 12/02/24 23:59 12/02/24 23:59 12/03/24 07:27
I&O
12/02/24 12/03/24 12/04/24
06:59 06:59 06:59
Intake Total 780 / 780 1510 / 1510
Output Total 1950 / 1950 2024
Balance -1170 / -1170 -515 / -515
Review of Systems
-
History Source: Patient
Constitutional: Reports Fatigue
EENT: Reports No Symptoms Reported and Other (hoarse voice)
Respiratory: Reports Cough and Other (some sputum, greenish, and some trouble breathing but improved)
Cardiac: Reports No Symptoms
Abdomen/GI: Reports Other (dysphagia)
Physical Exam
-
General: Cachectic
HEENT: Other (her voice is very faint/hoarse)
Respiratory: Clear to Auscultation
Cardiac: Regular Rhythm and Other (i was not able to appreciate any murmurs)
GI: Soft
Musculoskeletal: Other (no lower extremity edema)
Skin: Warm
Neuro: AO x 3
[2024-12-03] MEDS: PULMICORT 0.5 MG INH ×2 (08:13→19:11)
[2024-12-03] MEDS: DUONEB 3 ML INH ×3 (08:13→19:11)
--- NOTE | 2024-12-03 08:23 | W.PN.GI.CBS2 ---
Today's Communication / Plan
-
dobhoff placement
Assessment / Plan
-
Pt is a 64yo with hx prior peg years ago with wt loss, lung CA (pt recall left upper lobe)2017 with prior radiation and chemo recurrence with mets to brain with prior brain surgery and radiation in 2023 following at [facility], seizures,
anxiety/depression, HTN, sacral wound, and chronic pain on chronic narcotics with admission with speech difficulty, COPD exacerbation with elevated troponin and concern for CHF on admission with cardiology and pulm evaluation. She has been seen
by speech therapy with concern for pharyngeal stasis and inability to clear pharyngeal residue with aspiration. Pt has decided on comfort foods and initially declined peg but now agreeable to peg.
-dysphagia wither pharyngeal stasis on VSE
-dystonia
-wt loss
-constipation
-COPD exacerbation on admission
-elevated troponin
-CHF on admission
-hx prior peg with wt loss in past
-hyponatremia
other med problems:
-lung Ca 2017 with prior radiation and chemo recurrence with mets to brain with prior brain surgery and radiation in 2023
-hx seizures
-anxiety/depression
-HTN
-sacral wound
-chronic pain with chronic narcotic use
-tobacco abuse
PLAN:
still not to an acceptable baseline to prevent risk of intubation with sedation (Pt is DNR/DNI) although is better (down on oxygen from 4 to 2L)
Dobhoff placement
will d/w with sister, and pt again.
check mag, Phos
did d/w pulm, primary team via TT
Subjective
Subjective
Date of Service: December 03, 2024
Pt still SOB on oxygen but down to 2 L
no abdominal pain
Objective
Data Reviewed
Laboratory Data:
Laboratory Results
12/03/24 07:24
Laboratory Results
Total Bilirubin 0.7 mg/dl (0.2-1.3) 11/26/24 13:57
AST 20 U/L (14-36) 11/26/24 13:57
ALT 11 U/L (0-35) 11/26/24 13:57
Alkaline Phosphatase 55 U/L (38-126) 11/26/24 13:57
Vital Signs and I&O:
Vital Signs
Temp Pulse Resp BP Pulse Ox
97.7 F 76 18 158/95 98
12/03/24 07:00 12/03/24 08:14 12/03/24 08:14 12/03/24 07:00 12/03/24 08:14
I&O
12/02/24 12/03/24 12/04/24
06:59 06:59 06:59
Intake Total 780 / 780 1510 / 1510
Output Total 1950 / 1950 2024
Balance -1170 / -1170 -515 / -515
Physical Exam
Physical Exam
HEENT: Other (mild labored breathing)
GI: Soft and Non Tender
[2024-12-03 08:25] LABS: Blood Urea Nitrogen 19 mg/dl (7-17); Calcium 8.9 mg/dl (8.4-10.2); Carbon Dioxide 29 mmol/L (22-30); Chloride 94 mmol/L (98-107); Estimated Creatinine Clearance 54 ml/min; Glucose 85 mg/dl (70-99); Magnesium 1.9 mg/dl (1.6-2.3); Potassium 3.3 mmol/L (3.5-5.1); Sodium 129 mmol/L (135-145); eGFR > 60.00
[2024-12-03] MEDS: MEGACE ORAL SUSPENSION PO (10:01)
[2024-12-03] MEDS: NICODERM TRANSDERMAL 14 MG TRANSDERM (10:02)
[2024-12-03] MEDS: MIRALAX PO (10:02)
[2024-12-03] MEDS: DEPAKOTE (12 HR RELEASE) 500 MG PO ×2 (10:03→20:31)
[2024-12-03] MEDS: LYRICA 50 MG PO (10:04)
--- NOTE | 2024-12-03 10:05 | CM ---
Pt remains of oxygen 2 liters NC POx 98%.
NPO for Peg tube placement
Sister Katiana and Pt agreed on SNF [facility].
Will need PT OT Postop ordered.
Pt will need accepting SNF .
Pt will need to be tolerating tube feeding prior to dc to SNF
PLAN Locate SNF establish Tube feedings.
[2024-12-03] MEDS: DELTASONE 30 MG PO (10:06)
[2024-12-03] MEDS: NSS 1000 IV (10:11)
[2024-12-03] MEDS: COZAAR 50 MG PO (10:11)
[2024-12-03] MEDS: CYMBALTA DELAYED RELEASE 20 MG PO (10:12)
[2024-12-03] MEDS: CYMBALTA DELAYED RELEASE 60 MG PO (10:12)
[2024-12-03] MEDS: LOW STRENGTH ASPIRIN 81 MG PO (10:13)
[2024-12-03] MEDS: PROTONIX 40 MG PO (10:14)
[2024-12-03] MEDS: MUCINEX PO ×2 (10:16→20:29)
--- NOTE | 2024-12-03 11:19 | W.PN.UPDATE ---
Addendum entered and electronically signed by Herman Burton DO, Resident 12/03/24 12:52:
XR reviewed; DHT in the proximal stomach. DHT advanced 5cm without difficulty. Flushed well. OK to use for tube feeds and meds.
Original Note:
Documented by User: Herman Burton DO, Resident 12/03/24 11:21
Update Note
Progress Note Update
Dobhoff Tube placed at 11:10AM without difficulty. Patient tolerated the procedure well. Placed in right nare. Placement confirmed with insufflation. Portable CXR ordered to confirm.

Documented by User: TIA Lugo 12/03/24 11:28
Update Note
Progress Note Update
Dobhoff Tube placed at 11:10AM without difficulty. Patient tolerated the procedure well. Placed in right nare. Placement confirmed with insufflation. Portable CXR ordered to confirm.
I assisted resident with placement of DHT without difficulty. Pt was agreeable and I also reviewed with sister. Some nasal pain both nares with initially attempted left then right likely irritation with recent O2 use.
[2024-12-03] MEDS: DELTASONE PO (11:38)
[2024-12-03] MEDS: KCL 270 MEQ IV (12:35)
[2024-12-03] MEDS: DUONEB INH (14:27)
--- NOTE | 2024-12-03 14:44 | W.PN.UPDATE ---
Addendum entered and electronically signed by TIA Lugo 12/03/24 16:36:
supervised resident with DHT placement. X ray confirmed placement and ok to use.
Original Note:
Update Note
Progress Note Update
Initial Dobhoff tube tangled up with oxygen and extubated. New Dobhoff tube reinserted without difficulty to 60cm. R Nare. Patient tolerated well. Placement confirmed by insufflation; portable CXR ordered.
[2024-12-03 15:17] VITALS: BP 167/103
--- NOTE | 2024-12-03 15:25 | PTOTSP ---
Speech Language Pathology
Pt seen for dysphagia tx. Introduced effortful swallow exercise and provided handout of swallowing exercise. Explained, demonstrated, and practiced effortful swallow with use of ice chips. She completed 2 sets of 10 effortful swallows. Extremely
weak swallow noted with minimal laryngeal movement noted to palpation. Coughing episode x1.
Of note, pt aphonic this session, which is worse than when SPORTS ANALYST spoke with pt on 12/01. Pt stated voice changes started approximately 3 weeks ago. Question accuracy of timeline given cognitive deficits. However, voicing seems to be worsening over
time.
Recommend:
(1) Consider ENT consult to assess integrity of vocal folds in setting of prolonged progressive dysphonia/aphonia
(2) NPO
(2) Oral care 4/day with suctioning as needed
(4) Meds via DHT as able
(5) Allow sparing ice chips post oral care given supervision per Aspiration Risk Hydration Protocol (ARHP). Remind pt to complete effortful swallow exercise with use of ice chips
(6) SPORTS ANALYST to continue to follow
[2024-12-03] MEDS: LIPITOR 40 MG TUBE (17:32)
[2024-12-03] MEDS: XANAX 0.5 MG TUBE ×2 (17:32→21:57)
[2024-12-03] MEDS: ROXICODONE ORAL SOLUTION 7.5 MG TUBE (17:33)
[2024-12-03] MEDS: XANAX PO (18:17)
[2024-12-03] MEDS: NSS IV (18:17)
[2024-12-03] MEDS: LYRICA 50 MG TUBE (20:30)
[2024-12-03] MEDS: FLOMAX 0.4 MG PO (21:51)
[2024-12-03] MEDS: DESYREL 150 MG TUBE (21:53)
[2024-12-03] MEDS: ZANAFLEX 4 MG TUBE (21:53)
[2024-12-03] MEDS: SENNA SYRUP TUBE (21:53)
[2024-12-03 22:55] VITALS: BP 161/90
[2024-12-04] MEDS: ROXICODONE ORAL SOLUTION 7.5 MG TUBE ×4 (02:53→21:12)
[2024-12-04] MEDS: XANAX 0.25 MG PO (04:09)
[2024-12-04 06:06] VITALS: BMI 13.7
[2024-12-04 07:00] VITALS: BP 150/91
--- NOTE | 2024-12-04 07:07 | W.PN.HOSP.TC ---
Addendum entered and electronically signed by Crescencio Stevenson MD 12/04/24 20:37:
Attending Addendum-
I saw and evaluated the patient. I reviewed the resident�s note and agree with findings and plan as documented in the resident�s note. Sub: Seen with sister present. Feels that she has more energy. Still hasnt voided yet. Denies SOB CP palps fevers.
Full 12 point ROS reviewed and negative except as documented Exam: Vitals reviewed in chart GEN- cachectic HEENT DHT taped to nares. heart RRR lungs decreased BS @ bases no W/R/R abd soft NT ND pos BS LE no edema NPPB
Plan:
#Acute hypoxic respiratory failure
-likely will need supplemental O2 on DC
-Continue with bronchodilator therapy ATC and PRN, systemic steroid
-continue to wean for sats between 88-92%, down to 2L
# Aspiration Pneumonia POA/ severe dysphagia
-completed course of Unasyn
-d/w speech, video swallow showed high risk aspiration
-d/w GI- high risk for needing to be intubated during PEG in this state
-start with DHT feeds (unable to to go to SNF with DHT) tube placed 12/03
-monitor closely for refeeding syndrome- daily CMP- mag phos start thiamine start slow and advance to goal
-difficult situation as patient is severe malnourished and ability to heal / successfully rehab is dependent on nutrition- hopeful can place PEG sooner than later
-d/w POA
-PEG tube on 12/08
# Acute COPD exacerbation
-resolving, weaning o2
-c/w DuoNeb & Pulmicort nebulizer
-prednisone taper
-GI prophylaxis with PPI
-Appreciate pulmonary input
# Acute urinary retention
-Encourage ambulation
-TOV on 12/04- underway
# NIMI
-c-/w Statin, ARB, low dose Aspirin
-Echo-LVEF 59%, RV dilated, Mild to moderate AR, mild TR. No signs of CHF on exam.
-Monitor on telemetry
# Stage II pressure sacral deep tissue injury-POA
-cont wound care
#HTN
- uncontrolled
- increase losartan
# Severe protein calorie malnutrition
-Muscle wasting
-DC'd megace
-cont NPO
-eventual PEG tube 12/08- start with DHT
#Hyponatremia
-Mild, cont TF check labs
-repeat labs in am
#Hypokalemia- replete
#Tobacco Abuse
-current smoker
-cont ravinder patch, advised to quit
# Chronic pain syndrome with narcotic dependence
# Chronic anxiety disorder with benzodiazepine dependency
# History of brain cancer s/p resection. In remission. Last brain MRI 07/2024 showed no disease procession/ stable changes per reading.
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
# DVT prophylaxis-lovenox
Dispo eventual dc to SNF when able, patient agreeable- barrier to DC-PEG tube/nutrition
Time spent coordinating care, review of plan of care with resident, personally reviewed records in EMR, med rec, consults, notes, labs, radiology, d/w nursing POA � 51 mins
Original Note:
Today's Communication/Plan
-
- tube feeds ongoing
- replete K+ in KCl riders to address hypoNa
- monitor BMP/Mg/Phos q12h
- continue prednisone taper
- continue duoneb/budesonide
Assessment / Plan
Assessment / Plan
Assessment and plan
In summary for the 64 yo F who presented with AECOPD
# Dysphagia, pharyngeal dysfunction
- likely attributed to prior radiation therapy, chronic smoking
- DHT in place, tube feeds ongoing at [facility] 1.5 at 15ml/hr
- f/u labs BMP/Mg/Phos q12h until sunday AM
# Hypokalemia
- 3.4
- will replete with KCl riders
- follow with BMP
#Hyponatremia
- NPO 127 from 129 from 131, from 134
- tube feeds ongoing,
- BMP
- f/u with nutrition for further reccs
# Acute COPD exacerbation due to continued tobacco use
- She is on albuterol/ipratropium, inhaled budenoside
- deltasone PO 30mg, taper to 20mg tomorrow; per pulmonary, q48h, decrease by 10mg
- 1ppd since she was a child
- has nicotine patch, she is trying to quit but reports that she has been smoking on/off over the past years.
- Can decrease supplemental O2 for targeting 88-92%
- unasyn d/c'ed -completed 7 day course
# Acute hypoxic respiratory failure
- Initial O2sat 66%
- On 4L, O2 sat 96% but we can decrease to target 88-92%
- She is on albuterol/ipratropium, inhaled budenoside, and deltasone PO (taper).
# Aspiration Pneumonia
- CXR RML/RLQ opacity; bilateral pleural effusions
- however, the aspiration pneumonia was noted to be on prior admissions.
- BCx negative; repeat CXR appears unchanged from prior
- speech modified barium swallow = high aspiration risk
- unasyn d/c'ed -completed 7 day course
- GI to place dobhoff
# Acute urinary retention
- lam removed this morning
- trial void ongoing per protocol, 12pm next check
# Nonischemic myocardial injury
- elevated troponin but nonspecific EKG changes
- most likely in the setting of acute exacberation of COPD leading to demand stress.
- troponin has decreased
- given that there was concern for volume overload, she was given IV lasix but now on losartan for the HTN since the volume status has improved per cardiology notes.
- Echo on 11/27: LVEF 59%; RV dilated, Mild to moderate AR, mild TR.
- continue atorvastatin 40mg, losartan 50mg PO, and aspirin 81mg PO
# Stage II pressure sacral deep tissue injury
Consult wound care
Barrier cream/foam
Change position and use cushion to relieve pressure
# Severe protein calorie malnutrition
- patient is very cachetic
- speech is following and deems high risk of aspiration
- CM aware
# Constipation
- Miralax and dulcolax prn
# Chronic pain syndrome with narcotic dependence.
- Unknown etiology, patient reported that started after treatment of cancer but cannot verify history.
- She agreed today to consider reducing the dose but advised to take less as needed doses.
# Chronic anxiety disorder with benzodiazepine dependency, she agreed today to reduce the dose of Xanax.
# History of brain cancer s/p resection.
- In remission. Last brain MRI 07/2024 showed no disease procession/ stable changes per reading.
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
Patient was able to pull up her records from the portal on her iPad. She seems to have excellent outpatient care and follow-ups. She is followed closely by her radiation oncologist Dr Bar who treated her lung and brain cancer. She also has
follow-ups with neurology, rheumatology and family doctor in near future. Discussed with the patient ( who is satisfied and happy with her care at [facility]) and wanted to continue care there. Sister Kaitlin, had suggested to transfer her care
to if possible but patient wanted to stay with [facility] (patient is competent-makes her own decisions), patient will have to work with her family and case preparer and liner to continue care in the outpatient setting and secure transportation. It is
hard to establish care in different system immediately. She will need pulmonary OP follow up upon discharge.
DVT ppx - lovenox 40mg
Disposition planning: pending
Kaitlin Delong phone # is [phone] (sister)
Anticipated Discharge: > 48 hours
Subjective/Interval History
-
Date of Service: December 04, 2024
Receiving tube feeds
feels good
carole was taken out 6am today, trial voiding ongoing
Objective Data
-
Labs:
Laboratory Results
12/04/24
06:31
WBC Pending
Hgb Pending
Hct Pending
Plt Count Pending
Sodium Pending
Potassium Pending
Chloride Pending
Carbon Dioxide Pending
BUN Pending
Creatinine Pending
Glucose Pending
Calcium Pending
Vital Signs:
Vital Signs
Temp Pulse Resp BP Pulse Ox
97.6 F 83 26 161/90 96
12/03/24 22:55 12/03/24 22:55 12/03/24 22:55 12/03/24 22:55 12/03/24 23:02
afebirle
BP on the higher side
I&O
12/03/24 12/04/24 12/05/24
06:59 06:59 06:59
Intake Total 1510 / 1510
Output Total 2024
Balance -515 / -515 -2049
[2024-12-04] MEDS: DUONEB 3 ML INH ×4 (07:38→19:27)
[2024-12-04] MEDS: PULMICORT 0.5 MG INH ×2 (07:38→19:27)
[2024-12-04 08:25] LABS: Hematocrit 40.4 % (37.0-47.0); Hemoglobin 13.7 g/dL (12.0-16.0); Mean Corp Hgb Conc. 33.9 g/dL (33.0-37.0); Mean Corpuscular Volume 86.7 fL (81.0-99.0); Platelet Count 216 10^3/uL (130-400); Red Cell Dist. Width 16.8 % (11.5-14.5)
[2024-12-04] MEDS: DEPAKOTE (12 HR RELEASE) PO ×2 (08:32→08:58)
[2024-12-04] MEDS: MUCINEX 600 MG PO (08:32)
[2024-12-04] MEDS: CYMBALTA DELAYED RELEASE 60 MG PO (08:32)
[2024-12-04] MEDS: CYMBALTA DELAYED RELEASE 20 MG PO (08:32)
[2024-12-04] MEDS: VITAMIN B1 100 MG TUBE (08:32)
[2024-12-04] MEDS: DELTASONE 30 MG TUBE (08:32)
[2024-12-04] MEDS: LOW STRENGTH ASPIRIN 81 MG TUBE (08:32)
[2024-12-04] MEDS: PROTONIX 40 MG PO (08:32)
[2024-12-04] MEDS: LYRICA 50 MG TUBE ×2 (08:33→20:32)
[2024-12-04] MEDS: NICODERM TRANSDERMAL 14 MG TRANSDERM (08:33)
[2024-12-04] MEDS: XANAX 0.5 MG TUBE ×3 (08:34→21:13)
[2024-12-04] MEDS: COZAAR 50 MG TUBE (08:34)
[2024-12-04] MEDS: MIRALAX PO (08:57)
--- NOTE | 2024-12-04 08:57 | W.PN.GI.CBS2 ---
Addendum entered and electronically signed by TIA Lugo 12/04/24 10:04:
still with Na and K low continue to follow and replete per medical team with concern for refeeding. dietary to see for TF goal advancement. Will need repeat speech eval on weekend and if not improving peg next week when resp status improves
Original Note:
Today's Communication / Plan
-
continue tube feeds
Assessment / Plan
-
Pt is a 64yo with hx prior peg years ago with wt loss, lung CA (pt recall left upper lobe)2017 with prior radiation and chemo recurrence with mets to brain with prior brain surgery and radiation in 2023 following at [facility], seizures,
anxiety/depression, HTN, sacral wound, and chronic pain on chronic narcotics with admission with speech difficulty, COPD exacerbation with elevated troponin and concern for CHF on admission with cardiology and pulm evaluation. She has been seen
by speech therapy with concern for pharyngeal stasis and inability to clear pharyngeal residue with aspiration. Pt has decided on comfort foods and initially declined peg but now agreeable to peg.
-dysphagia wither pharyngeal stasis on VSE
-dystonia
-wt loss
-constipation
-COPD exacerbation on admission
-elevated troponin
-CHF on admission
-hx prior peg with wt loss in past
-hyponatremia
other med problems:
-lung Ca 2017 with prior radiation and chemo recurrence with mets to brain with prior brain surgery and radiation in 2023
-hx seizures
-anxiety/depression
-HTN
-sacral wound
-chronic pain with chronic narcotic use
-tobacco abuse
PLAN:
continue dobhoff feeds
monitor mag, phos, K while refeeding
tentative plan for sunday for PEG
Subjective
Subjective
Date of Service: December 04, 2024
Pt get tube feeds, no abd complaints
Objective
Data Reviewed
Laboratory Data:
Laboratory Results
12/04/24 06:31
Laboratory Results
Phosphorus 2.5 mg/dl (2.5-4.5) 12/03/24 07:24
Magnesium 1.9 mg/dl (1.6-2.3) 12/03/24 07:24
Total Bilirubin 0.7 mg/dl (0.2-1.3) 11/26/24 13:57
AST 20 U/L (14-36) 11/26/24 13:57
ALT 11 U/L (0-35) 11/26/24 13:57
Alkaline Phosphatase 55 U/L (38-126) 11/26/24 13:57
Vital Signs and I&O:
Vital Signs
Temp Pulse Resp BP Pulse Ox
97.6 F 96 16 150/91 98
12/04/24 07:00 12/04/24 08:34 12/04/24 07:38 12/04/24 08:34 12/04/24 07:38
I&O
12/03/24 12/04/24 12/05/24
06:59 06:59 06:59
Intake Total 1510 / 1510
Output Total 2024
Balance -515 / -515 -2049
Physical Exam
Physical Exam
GI: Soft, Non Distended and Non Tender
--- NOTE | 2024-12-04 09:13 | W.PN.PUL3 ---
Today's Communication / Plan
-
Doing well with DHT in place, optimize nutrition
Remains on 2L NC, high risk procedure
Planning for PEG per GI, likely next week
PT/OT ongoing
Prednisone taper
Assessment
-
64-year-old smoking female with underlying suspected COPD, depression, anxiety, chronic pain, CVA, and previous lung cancer presented with increasing shortness of breath felt to have COPD exacerbation-pulmonary consulted for shortness of breath/COPD
exacerbation 11/27/2024
COPD-suspected gold stage IV with acute exacerbation
Bedside spirometry. 11/27/24-FEV1 720 mL-30%, 17% improvement postbronchodilator
Leukocytosis
Chronic hypercapnia-ABG 11/26/2024--53/65/7.39
Mild hyperglycemia
Mild hyponatremia
Conditions present prior to admission:
Cigarette smoker.
COPD.
History of lung cancer.
History of brain cancer.
Depression/anxiety.
Chronic pain.
History of CVA.
Seizure disorder..
Aortic regurgitation-moderate by echo
Plan
Respiratory decompensation consistent with underlying significant COPD with acute exacerbation--FEV1 30%
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
Patient reports prior history of stage III lung cancer treated with chemotherapy and radiation and follows up with an oncologist in [facility], details unavailable for review
Patient requires admission for severe COPD exacerbation and respiratory failure
Remains on low rate supplemental oxygen- 2 L improved
No longer bronchospastic- but mild bilateral rhonchi noted
Continue nebulizer regimen while in the hospital: DuoNebs/Pulmicort.
Mucolytic's
Prednisone taper, decrease by 10 mg every 48 hours to off. Decreased to 30mg today
Incentive spirometry
Acapella-encouraged
GI planning for PEG placement, asked for re-eval
Planning likely next week
Re-evaluated patient for pre-operative pulmonary assessment--
In the ideal situation, would wait at least 4 weeks for complete recovery from acute exacerbation, in this case PEG tube placement should be performed sooner rather than later in this patient with significant chronic microaspiration and high risk of
pneumonia and NPO status and significant weight loss, malnutrition.
Also may increase risk of readmission with recurrent microaspiration.
Okay to proceed with PEG tube placement without additional interventions.
Patient is high risk for pulmonary complications including pneumonia, respiratory failure require mechanical ventilation, atelectasis.
In the other hand patient at high risk for aspiration pneumonia and recurrent readmissions to the hospital.
She is aware of her risk
Last exposure to anesthesia about 1 year ago, she reports handling it well
Component of HF on this admission, proBNP 5580
CXR with bilateral effusions
Had been getting diuresis but held now
Cardiology following, last seen 11/30
I would resume diuresis as tolerated, repeat proBNP and CXR today
Possible aspiration pneumonia, DHT placed
Cultures reviewed.
Unable to produce sputum
Empiric antibiotics if acute bacterial bronchitis or acute bacterial lower respiratory tree infection is suspected-ampicillin initiated-complete 7 days.
Afebrile, no leukocytosis resolved
Can check PCT to r/o
Smoking cessation counseling ongoing
Nicotine patch
DVT prophylaxis-on Lovenox
GI prophylaxis recommended if on steroids for prolonged period-on pantoprazole
Would benefit from triple inhaler therapy such as Trelegy or Breztri at time of discharge
Outpatient pulmonary [id number], inhalers, pulmonary rehab, smoking cessation counseling, low-dose lung cancer screening CT, etc.
We will follow in the event of adverse event postop
Diagnostic data:
Spirometry 11/27/24-FEV1 720 mL-30%, 17% improvement postbronchodilator.
Chest x-ray 11/28/24-small bilateral pleural effusions.
Chest x-ray 11/26/2024-mild blunting lateral and posterior costophrenic angles bilaterally suggesting small bilateral pleural effusions
Chest x-ray 06/30/2013-NAD
Echocardiogram 11/27/24-EF 59%, moderately dilated right ventricle, mild to moderate aortic valve regurgitation.
Total time spent on this consultation/encounter __45__ minutes which includes review of history, physical exam, medications, laboratory data, personal review of imaging, extensive review of outpatient records, discussion with care team and
respiratory therapy.
Subjective Data
-
Date of Service:
Date of Service: December 04, 2024
Chief Complaint: Pulmonary Follow Up and Dyspnea Follow Up
Subjective:
No new complaints, sitting in chair
Remains on 2L NC
Objective Data
Data Reviewed
Vital Signs / I&O / Oxygen:
Vital Signs
Temp Pulse Resp BP Pulse Ox
97.6 F 96 16 150/91 98
12/04/24 07:00 12/04/24 08:34 12/04/24 07:38 12/04/24 08:34 12/04/24 07:38
Intake and Output
12/03/24 12/04/24 12/05/24
06:59 06:59 06:59
Intake Total 1510 / 1510
Output Total 2024
Balance -515 / -515 -2049
SaO2 98
Nasal Cannula flow liters per 2
minute
Physical Exam
General: Respiratory Distress (n), Comfortable and Other ( cachectic and chronically ill-appearing)
HEENT: Normocephalic, Anicteric, Moist Mucous Membranes and Other (Whisper noted)
Cardiovascular: Regular Rhythm
Respiratory: Wheeze (n), Crackles (n), Rhonchi (bilateral ronchi at bases), Non-Labored Respirations, Accessory Resp Muscle Use (n) and Stridor (n)
GI: Soft, Non Distended and Non Tender
Neurology: Awake, Alert, Oriented and No Motor Deficits
Skin: Warm, Good Color, Cyanosis (n), Jaundice and Rash (n)
Labs/Micro/Reports
Lab Data
12/04/24 06:31
Microbiology
11/26/24 15:10 Blood/Venous Blood Culture - Final
No Growth - Final Report
11/26/24 13:57 Blood/Venous Blood Culture - Final
No Growth - Final Report
[2024-12-04 09:14] LABS: Blood Urea Nitrogen 22 mg/dl (7-17); Calcium 8.6 mg/dl (8.4-10.2); Carbon Dioxide 28 mmol/L (22-30); Chloride 91 mmol/L (98-107); Estimated Creatinine Clearance 54 ml/min; Glucose 105 mg/dl (70-99); Magnesium 1.9 mg/dl (1.6-2.3); Potassium 3.4 mmol/L (3.5-5.1); Sodium 127 mmol/L (135-145); eGFR > 60.00
[2024-12-04 11:02] VITALS: BP 141/86; PULSE 101; O2SAT 95
--- NOTE | 2024-12-04 11:49 | CM ---
Pt remains of oxygen 2 liters NC POx 95%.
Pt had Dobhoff placed and tube feeding Jevity 1.5 advanced to 15 cc.
Pt agreed on [facility].
Spoke with Joana at [facility] she said call back when pt closer to dc to check on Bed. [facility] can not accept. [facility] can accept.
PLAN Locate SNF establish Tube feedings.
[2024-12-04] MEDS: KCL 270 MEQ IV (12:29)
[2024-12-04 15:00] VITALS: BP 152/100
[2024-12-04] MEDS: LIPITOR 40 MG TUBE (16:53)
[2024-12-04] MEDS: ROBITUSSIN 100 MG PO ×2 (16:53→21:13)
[2024-12-04 18:49] LABS: Blood Urea Nitrogen 27 mg/dl (7-17); Calcium 9.1 mg/dl (8.4-10.2); Carbon Dioxide 30 mmol/L (22-30); Chloride 92 mmol/L (98-107); Estimated Creatinine Clearance 54 ml/min; Glucose 111 mg/dl (70-99); Magnesium 2.0 mg/dl (1.6-2.3); Potassium 4.5 mmol/L (3.5-5.1); Sodium 127 mmol/L (135-145); eGFR > 60.00
[2024-12-04] MEDS: DEPAKOTE (12 HR RELEASE) 500 MG PO (20:25)
[2024-12-04] MEDS: ZANAFLEX 4 MG TUBE (21:13)
[2024-12-04] MEDS: SENNA SYRUP TUBE ×2 (21:13→22:00)
[2024-12-04] MEDS: FLOMAX 0.4 MG PO (21:13)
[2024-12-04] MEDS: DESYREL 150 MG TUBE (21:14)
[2024-12-04 23:20] VITALS: BP 167/90
[2024-12-05 00:09] LABS: Glucose - Point of Care 103 mg/dl (70-99)
[2024-12-05] MEDS: ROXICODONE ORAL SOLUTION 7.5 MG TUBE ×3 (03:16→23:06)
[2024-12-05 06:00] VITALS: BMI 13.9
--- NOTE | 2024-12-05 06:02 | TRANSFER ---
7868 pt pulled Dobhoff tube. Pt very anxious and forgetful at times. Pt stated 'the nurse said it's ok to pull it off.' Educated the patient the importance of keeping it intact for nutrition and medication administration. ROLL CLEANER Sindy Wood made
aware. Plan of car ongoing.
--- NOTE | 2024-12-05 06:33 | W.PN.GI.CBS2 ---
Addendum entered and electronically signed by TIA Lugo 12/05/24 10:05:
reviewed with Dr. Quintanilla agreeable to proceed with EGD with peg today. Medical and pulm team updated. Long discussion with patient and sister Kaitlin. Reviewed risk of peg-resp compromise, bleeding etc, cont DHT with pulling out with aspiration ,
pulling out peg confusion and also discussed option of hospice. Pt still wishes to proceed for peg with risk. Sister will come in today to assist with consent. All questions answered. updated nursing staff. cont NPO - Pt is still requesting
pain/anxiety meds cont management per medical team.
Original Note:
Today's Communication / Plan
-
Pt pulled out DHT again this am around 5-6 AM
pt asking if peg can be done sooner
will review with Dr. Quintanilla
appreciate pulm recs-- currently 3 liters 91% --high risk for procedure
await AM labs to see if stable if decide to proceed
monitor electrolytes for refeeding
monitor mag, phos, K--correct per medical team
remains DNR
Assessment / Plan
-
Pt is a 64yo with hx prior peg years ago with wt loss, lung CA (pt recall left upper lobe)2017 with prior radiation and chemo recurrence with mets to brain with prior brain surgery and radiation in 2023 following at [facility], seizures,
anxiety/depression, HTN, sacral wound, and chronic pain on chronic narcotics with admission with speech difficulty, COPD exacerbation with elevated troponin and concern for CHF on admission with cardiology and pulm evaluation. She has been seen
by speech therapy with concern for pharyngeal stasis and inability to clear pharyngeal residue with aspiration. Pt has decided on comfort foods and initially declined peg but now agreeable to peg. 12/03 temp DHT placed for nutrition to allow
further pulm optimization prior to peg.
-dysphagia wither pharyngeal stasis on VSE
-dystonia
-wt loss
-constipation
-COPD exacerbation on admission
-elevated troponin
-CHF on admission
-hx prior peg with wt loss in past
-hyponatremia
-hypokalemia
other med problems:
-lung Ca 2018 with prior radiation and chemo recurrence with mets to brain with prior brain surgery and radiation in 2023
-hx seizures
-anxiety/depression
-HTN
-sacral wound
-chronic pain with chronic narcotic use
-tobacco abuse
-DNR
PLAN:
Pt pulled out DHT again this am around 5-6 AM
pt asking if peg can be done sooner
will review with Dr. Quintanilla
appreciate pulm recs-- currently 3 liters 91% --high risk for procedure
await AM labs to see if stable if decide to proceed
monitor electrolytes for refeeding
monitor mag, phos, K--correct per medical team
remains DNR
Subjective
Subjective
Date of Service: December 05, 2024
tube feed slow advancing up to goal of 45ml/hr but pulled DHT out again today, pt state stool 2 days ago
Objective
Data Reviewed
Laboratory Data:
Laboratory Results
Phosphorus 3.2 mg/dl (2.5-4.5) 12/04/24 18:29
Magnesium 2.0 mg/dl (1.6-2.3) 12/04/24 18:29
Total Bilirubin 0.7 mg/dl (0.2-1.3) 11/26/24 13:57
AST 20 U/L (14-36) 11/26/24 13:57
ALT 11 U/L (0-35) 11/26/24 13:57
Alkaline Phosphatase 55 U/L (38-126) 11/26/24 13:57
Vital Signs and I&O:
Vital Signs
Temp Pulse Resp BP Pulse Ox
97.8 F 94 14 167/90 96
12/04/24 23:20 12/04/24 23:20 12/04/24 23:20 12/04/24 23:20 12/04/24 23:20
I&O
12/03/24 12/04/24 12/05/24
06:59 06:59 06:59
Intake Total 1510 / 1510
Output Total 2024 1600 / 1599
Balance -515 / -515 -2049 / -2049 -1599 /
Physical Exam
Physical Exam
HEENT: Anicteric and Moist mucous membranes
Cardiology: Normal Sinus Rhythm
Pulmonary: Other (course )
GI: Soft, Non Distended and Non Tender
Extremities: No Edema
Neuro: Other (occasional forgetfulness)
--- NOTE | 2024-12-05 07:07 | W.PN.HOSP.TC ---
Addendum entered and electronically signed by Crescencio Stevenson MD 12/05/24 19:46:
Attending Addendum-
I saw and evaluated the patient. I reviewed the resident�s note and agree with findings and plan as documented in the resident�s note. Sub: pulled DHT out overnight. states that she wss confused. Still requiring straight cath. Denies SOB CP palps
fevers. Full 12 point ROS reviewed and negative except as documented Exam: Vitals reviewed in chart GEN- cachectic heart RRR lungs decreased BS @ bases no W/R/R abd soft NT ND pos BS LE no edema - NPPB
Plan:
#Acute hypoxic respiratory failure
-likely will need supplemental O2 on DC
-Continue with bronchodilator therapy ATC and PRN, systemic steroid
-continue to wean for sats between 88-92%
# Aspiration Pneumonia POA/ severe dysphagia
-completed course of Unasyn
-d/w speech, video swallow showed high risk aspiration
-pulled out DHT- d/w GI and surgery- PEG tube placed -12/05
-monitor closely for refeeding syndrome
-Daily CMP mag phos
# Acute COPD exacerbation
-resolving, weaning o2
-c/w DuoNeb & Pulmicort nebulizer
-cont prednisone taper
-GI prophylaxis with PPI
-pulm signed off
# Acute urinary retention
-Encourage ambulation
-increase flomax
-still requiring SC- will continue x additional 24 hours
-likely will need to reinsert lam
# NIMI
-trops peaked
# Stage II and Stage III pressure sacral pressure injury-POA
-cont wound care
#HTN
- uncontrolled
- increase losartan
# Severe protein calorie malnutrition
-Muscle wasting
-DC'd Megace
-cont NPO
-PEG placed on 12/05- start feeds
#Hyponatremia
- worsening, likely due to free water with TF likely SIADH
- check serum osm, urine na and osm
- repeat BMP @2PM
- c/s nephro if worsening- may need tolvaptan
- check TSH cortisol
#Tobacco Abuse
-current smoker
-cont ravinder patch, advised to quit
# Chronic pain syndrome with narcotic dependence
# Chronic anxiety disorder with benzodiazepine dependency
# History of brain cancer s/p resection. In remission. Last brain MRI 07/2024 showed no disease procession/ stable changes per reading.
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
# DVT prophylaxis-lovenox
Dispo eventual dc to SNF when able, patient agreeable
Time spent coordinating care, review of plan of care with resident, personally reviewed records in EMR, med rec, consults, notes, labs, radiology, d/w nursing surgery GI � 56 mins
Original Note:
Today's Communication/Plan
-
- peg today per GI because pulled out dobhoff
- started IV NS at 70cc/hr
- f/u nutrition recs regarding electrolyte abnormalities
- f/u BMP/Mag/Phos as feeding resumes
Assessment / Plan
Assessment / Plan
Assessment and plan
In summary for the 64 yo F who presented with AECOPD
# Dysphagia, pharyngeal dysfunction
- likely attributed to prior radiation therapy, chronic smoking
- speech says
- DHT has been pulled out, PEG tube apprently will be attempted today
- f/u labs BMP/Mg/Phos q12h until sunday AM
#Hyponatremia
- NPO 124 from 127 from 129 from 131, from 134
- BMP
- started IVF NS at 70 cc/hr
- f/u with nutrition for further reccs
# Hypokalemia
- 3.5 from 4.5
- follow with BMP
# Hypertension
- BP in 160s yesterday
- losartan 100mg
# Acute COPD exacerbation due to continued tobacco use
- She is on albuterol/ipratropium, inhaled budenoside
- deltasone PO 30mg, taper to 20mg today; per pulmonary, q48h, decrease by 10mg
- 1ppd since she was a child
- has nicotine patch, she is trying to quit but reports that she has been smoking on/off over the past years.
- supplemental O2 for targeting 88-92%
# Acute hypoxic respiratory failure
- Initial O2sat 66%
- On 4L, O2 sat 96% but we can decrease to target 88-92%
- She is on albuterol/ipratropium, inhaled budenoside, and deltasone PO (taper).
# Aspiration Pneumonia
- CXR RML/RLQ opacity; bilateral pleural effusions
- however, the aspiration pneumonia was noted to be on prior admissions.
- BCx negative; repeat CXR appears unchanged from prior
- speech modified barium swallow = high aspiration risk
- GI to attempt PEG today
# Acute urinary retention
- lam removed this morning
- trial void ongoing per protocol, 12pm next check
# Nonischemic myocardial injury
- elevated troponin but nonspecific EKG changes
- most likely in the setting of acute exacberation of COPD leading to demand stress.
- troponin has decreased
- given that there was concern for volume overload, she was given IV lasix but now on losartan for the HTN since the volume status has improved per cardiology notes.
- Echo on 11/27: LVEF 59%; RV dilated, Mild to moderate AR, mild TR.
- continue atorvastatin 40mg, losartan 50mg PO, and aspirin 81mg PO
# Likely Stage 2 pressure sacral deep tissue injury that was present on admission
- this is likely stage 2 because wound care note on 12/04 states that it is stage 2, please follow-up with wound care
- Consult wound care - is following
- Barrier cream/foam
- Change position and use cushion to relieve pressure
# Severe protein calorie malnutrition
- patient is very cachetic
- speech is following and deems high risk of aspiration
- CM aware
# Constipation
- Miralax and dulcolax prn
# Chronic pain syndrome with narcotic dependence.
- Unknown etiology, patient reported that started after treatment of cancer but cannot verify history.
- She agreed today to consider reducing the dose but advised to take less as needed doses.
# Chronic anxiety disorder with benzodiazepine dependency, she agreed today to reduce the dose of Xanax.
# History of brain cancer s/p resection.
- In remission. Last brain MRI 07/2024 showed no disease procession/ stable changes per reading.
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
Patient was able to pull up her records from the portal on her iPad. She seems to have excellent outpatient care and follow-ups. She is followed closely by her radiation oncologist Dr Bar who treated her lung and brain cancer. She also has
follow-ups with neurology, rheumatology and family doctor in near future. Discussed with the patient ( who is satisfied and happy with her care at [facility]) and wanted to continue care there. Sister Kaitlin, had suggested to transfer her care
to if possible but patient wanted to stay with [facility] (patient is competent-makes her own decisions), patient will have to work with her family and case liner to continue care in the outpatient setting and secure transportation. It is
hard to establish care in different system immediately. She will need pulmonary OP follow up upon discharge.
DVT ppx - lovenox 40mg
Disposition planning: pending
Kaitlin Delong phone # is [phone] (sister)
Anticipated Discharge: > 48 hours
Subjective/Interval History
-
Date of Service: December 05, 2024
pulled dobhoff tube overnight at 5am
Objective Data
-
Labs:
Laboratory Results
12/05/24 12/05/24
06:48 17:00
WBC Pending
Hgb Pending
Hct Pending
Plt Count Pending
Sodium Pending Pending
Potassium Pending Pending
Chloride Pending Pending
Carbon Dioxide Pending Pending
BUN Pending Pending
Creatinine Pending Pending
Glucose Pending Pending
Calcium Pending Pending
Na+ 124 from 127
K+ 3.5 from 4.5
Mag/PHos stable
Vital Signs:
Vital Signs
Temp Pulse Resp BP Pulse Ox
97.8 F 94 14 167/90 96
12/04/24 23:20 12/04/24 23:20 12/04/24 23:20 12/04/24 23:20 12/04/24 23:20
BP 160s/90s
I&O
12/04/24 12/05/24 12/06/24
06:59 06:59 06:59
Output Total 2049 / 2049 1600 / 1600
Balance -2049 / -2049 -1600 / -1600
straight cath was 1200ccs
Review of Systems
-
History Source: Patient
Constitutional: Reports Fatigue
EENT: Reports No Symptoms Reported and Other (hoarse voice)
Respiratory: Reports Cough and Other (some sputum, greenish, and some trouble breathing but improved)
Cardiac: Reports No Symptoms
Abdomen/GI: Reports Other (dysphagia)
Physical Exam
-
General: Cachectic
HEENT: Other (her voice is very faint/hoarse)
Respiratory: Clear to Auscultation
Cardiac: Regular Rhythm and Other (i was not able to appreciate any murmurs)
GI: Soft
Musculoskeletal: Other (no lower extremity edema)
Skin: Warm
Neuro: AO x 3
[2024-12-05] MEDS: PULMICORT 0.5 MG INH ×2 (07:17→19:47)
[2024-12-05] MEDS: DUONEB 3 ML INH ×3 (07:17→19:47)
[2024-12-05 07:54] LABS: Hematocrit 40.5 % (37.0-47.0); Hemoglobin 14.1 g/dL (12.0-16.0); Mean Corp Hgb Conc. 34.8 g/dL (33.0-37.0); Mean Corpuscular Volume 85.8 fL (81.0-99.0); Platelet Count 191 10^3/uL (130-400); Red Cell Dist. Width 16.4 % (11.5-14.5)
[2024-12-05 07:55] VITALS: BP 142/91
[2024-12-05 08:18] LABS: Blood Urea Nitrogen 20 mg/dl (7-17); Calcium 8.5 mg/dl (8.4-10.2); Carbon Dioxide 30 mmol/L (22-30); Chloride 89 mmol/L (98-107); Estimated Creatinine Clearance 55 ml/min; Glucose 94 mg/dl (70-99); Magnesium 1.9 mg/dl (1.6-2.3); Potassium 3.5 mmol/L (3.5-5.1); Sodium 124 mmol/L (135-145); eGFR > 60.00
--- NOTE | 2024-12-05 08:38 | PN.CDI ---
CDI
- -
CDI:
Physician Documentation Request
Admit Date: 11/26/24 18:15
Dear Doctor Milagros,
Patient admitted with acute COPD exacerbation.
11/27 [facility] note, 'Patient admitted with stage 3 PI to sacral coccyx.'
12/04 PN, 'Stage II pressure sacral deep tissue injury-POA.'
Due to conflicting documentation, please provide in your note the stage of the documented sacral pressure injury:
Stage 3 sacral pressure injury, POA
Stage 2 sacral pressure injury, POA
Other
Use of terms such as suspected, likely, concern for, or probable (associated with a specific diagnosis that is being evaluated, monitored, or treated as if it exists) are acceptable and can be coded in the inpatient setting, when documented at the
time of discharge.
Thank you,
Vivi HUITRON,RN,CCDS
CDI Specialist
Available via [place] text
Please use your independent medical judgment in providing your response.
*Source: National Pressure Ulcer Advisory Panel (NPUAP)
[2024-12-05] MEDS: PROTONIX 40 MG PO (09:18)
[2024-12-05] MEDS: CYMBALTA DELAYED RELEASE 20 MG PO (09:18)
[2024-12-05] MEDS: CYMBALTA DELAYED RELEASE 60 MG PO (09:18)
--- NOTE | 2024-12-05 09:18 | W.PN.PUL3 ---
Today's Communication / Plan
-
No new complaints today, DHT removed by patient
Planning for PEG today
Please call us back if there are any complications, otherwise if she tolerates procedure well--we will see as needed
Assessment
-
64-year-old smoking female with underlying suspected COPD, depression, anxiety, chronic pain, CVA, and previous lung cancer presented with increasing shortness of breath felt to have COPD exacerbation-pulmonary consulted for shortness of breath/COPD
exacerbation 11/27/2024
COPD-suspected gold stage IV with acute exacerbation
Bedside spirometry. 11/27/24-FEV1 720 mL-30%, 17% improvement postbronchodilator
Leukocytosis
Chronic hypercapnia-ABG 11/26/2024--53/65/7.39
Mild hyperglycemia
Mild hyponatremia
Conditions present prior to admission:
Cigarette smoker.
COPD.
History of lung cancer.
History of brain cancer.
Depression/anxiety.
Chronic pain.
History of CVA.
Seizure disorder..
Aortic regurgitation-moderate by echo
Plan
Respiratory decompensation consistent with underlying significant COPD with acute exacerbation--FEV1 30%
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
Patient reports prior history of stage III lung cancer treated with chemotherapy and radiation and follows up with an oncologist in [facility], details unavailable for review
Patient requires admission for severe COPD exacerbation and respiratory failure
Remains on low rate supplemental oxygen- 2 L improved
No longer bronchospastic- but mild bilateral rhonchi noted
Continue nebulizer regimen while in the hospital: DuoNebs/Pulmicort.
Mucolytic's
Prednisone taper, decrease by 10 mg every 48 hours to off. Decreased to 30mg today
Incentive spirometry
Acapella-encouraged
GI planning for PEG placement, today
Re-evaluated patient for pre-operative pulmonary assessment--
In the ideal situation, would wait at least 4 weeks for complete recovery from acute exacerbation, in this case PEG tube placement should be performed sooner rather than later in this patient with significant chronic microaspiration and high risk of
pneumonia and NPO status and significant weight loss, malnutrition.
Also may increase risk of readmission with recurrent microaspiration.
Okay to proceed with PEG tube placement without additional interventions.
Patient is high risk for pulmonary complications including pneumonia, respiratory failure require mechanical ventilation, atelectasis.
In the other hand patient at high risk for aspiration pneumonia and recurrent readmissions to the hospital.
She is aware of her risk
Last exposure to anesthesia about 1 year ago, she reports handling it well
Component of HF on this admission, proBNP 5580
CXR with bilateral effusions
Had been getting diuresis but held now
Cardiology following, last seen 11/30
I would resume diuresis as tolerated, repeat proBNP and CXR today
Possible aspiration pneumonia, DHT placed
Cultures reviewed.
Unable to produce sputum
Empiric antibiotics if acute bacterial bronchitis or acute bacterial lower respiratory tree infection is suspected-ampicillin initiated-complete 7 days.
Afebrile, no leukocytosis resolved
Can check PCT to r/o
Smoking cessation counseling ongoing
Nicotine patch
DVT prophylaxis-on Lovenox
GI prophylaxis recommended if on steroids for prolonged period-on pantoprazole
Would benefit from triple inhaler therapy such as Trelegy or Breztri at time of discharge
Outpatient pulmonary [id number], inhalers, pulmonary rehab, smoking cessation counseling, low-dose lung cancer screening CT, etc.
We will follow in the event of adverse event postop
Diagnostic data:
Spirometry 11/27/24-FEV1 720 mL-30%, 17% improvement postbronchodilator.
Chest x-ray 11/28/24-small bilateral pleural effusions.
Chest x-ray 11/26/2024-mild blunting lateral and posterior costophrenic angles bilaterally suggesting small bilateral pleural effusions
Chest x-ray 06/30/2013-NAD
Echocardiogram 11/27/24-EF 59%, moderately dilated right ventricle, mild to moderate aortic valve regurgitation.
Total time spent on this consultation/encounter __45__ minutes which includes review of history, physical exam, medications, laboratory data, personal review of imaging, extensive review of outpatient records, discussion with care team and
respiratory therapy.
Subjective Data
-
Date of Service:
Date of Service: December 05, 2024
Chief Complaint: Pulmonary Follow Up and Dyspnea Follow Up
Subjective:
No new complaints
For PEG today
Objective Data
Data Reviewed
Vital Signs / I&O / Oxygen:
Vital Signs
Temp Pulse Resp BP Pulse Ox
97.9 F 93 20 142/91 91
12/05/24 07:55 12/05/24 07:55 12/05/24 07:55 12/05/24 07:55 12/05/24 07:55
Intake and Output
12/04/24 12/05/24 12/06/24
06:59 06:59 06:59
Output Total 2049 1600 / 1600
Balance -2049 / -2049 -1599 / -1599
SaO2 91
Nasal Cannula flow liters per 3
minute
Physical Exam
General: Respiratory Distress (n), Comfortable and Other ( cachectic and chronically ill-appearing)
HEENT: Normocephalic, Anicteric, Moist Mucous Membranes and Other (Whisper noted)
Cardiovascular: Regular Rhythm
Respiratory: Wheeze (n), Crackles (n), Rhonchi (bilateral ronchi at bases), Non-Labored Respirations, Accessory Resp Muscle Use (n) and Stridor (n)
GI: Soft, Non Distended and Non Tender
Neurology: Awake, Alert, Oriented and No Motor Deficits
Skin: Warm, Good Color, Cyanosis (n), Jaundice and Rash (n)
Labs/Micro/Reports
Lab Data
12/05/24 06:48
[2024-12-05] MEDS: DEPAKOTE (12 HR RELEASE) PO (09:20)
[2024-12-05] MEDS: NICODERM TRANSDERMAL 14 MG TRANSDERM (09:20)
[2024-12-05] MEDS: MIRALAX PO (09:20)
[2024-12-05] MEDS: OFIRMEV 100 IV (09:32)
[2024-12-05 09:37] LABS: TSH 8.55 uIU/ml (0.47-4.68)
[2024-12-05 09:38] LABS: Cortisol, Random 35.1 ug/dl
[2024-12-05] MEDS: XANAX 0.5 MG PO (09:55)
[2024-12-05] MEDS: DELTASONE 20 MG PO (09:55)
[2024-12-05] MEDS: XANAX TUBE (09:56)
[2024-12-05] MEDS: DELTASONE TUBE (09:56)
[2024-12-05] MEDS: NSS 1000 IV (10:04)
[2024-12-05] MEDS: LOW STRENGTH ASPIRIN TUBE (10:23)
[2024-12-05] MEDS: ROBITUSSIN PO ×3 (10:23→18:08)
[2024-12-05] MEDS: LYRICA TUBE (10:23)
[2024-12-05] MEDS: COZAAR TUBE (10:23)
[2024-12-05] MEDS: VITAMIN B1 TUBE (10:24)
[2024-12-05] MEDS: FLOMAX 0.4 MG PO ×2 (11:02→21:22)
--- NOTE | 2024-12-05 12:46 | PTOTSP ---
Speech Language Pathology
Attempted to see pt for dysphagia tx. Spoke with pt at length at bedside. She stated she did not complete any swallowing exercises since ANIMAL SHELTER MANAGER session yesterday. Pt stated she did not want to participate in dysphagia tx today as she is anxious
regarding PEG placement. Pt confirmed that goal is still to improve swallow and eat by mouth safely. Discussed that she needs to participate in dysphagia tx for this to happen. Pt stated she understood. Asked pt if she could do exercises over
the weekend. She stated 'I'll try.' Minimal participation and motivation in dysphagia tx. Given this and severe dysphagia, prognosis for improvement in the future is poor. ANIMAL SHELTER MANAGER to continue to follow.
[2024-12-05 12:54] VITALS: BP 155/98; PULSE 98; O2SAT 91
--- NOTE | 2024-12-05 15:32 | OR.RPT ---
Operative Report
Operative Report
PREOPERATIVE DIAGNOSIS: Protein-calorie malnutrition, dysphagia
POSTOPERATIVE DIAGNOSIS: Protein-calorie malnutrition, dysphagia
PROCEDURE PERFORMED: Percutaneous endoscopic gastrostomy (PEG) tube.
DATE OF SURGERY: 12/05/24
ANESTHESIA: Conscious sedation per Anesthesia.
SPECIMEN: None.
COMPLICATIONS: None.
PROCEDURE: After informed consent was obtained, the patient was brought to the endoscopy suite. He was placed in the supine position and was given IV sedation by the Anesthesia team. An EGD was performed from above by Dr. Quintanilla. The stomach was
transilluminated and an optimal position for the PEG tube was identified using the single poke method (1:1 palpation). The needle and sheath were attached to a 5cc syringe and then inserted through the abdomen into the stomach under direct
visualization while pulling back on the syringe plunger. No release of suction occurred in the syringe until the tip of the needle was visualized in the gastric lumen. The needle was removed and a guidewire was inserted through the sheath. The
sheath retracted and a second puncture at the exact same location and with the same precautions was performed without issues. The guidewire was again advanced and grasped from above with a snare by the endoscopist. It was removed completely and the
PEG tube was secured to the guidewire.
The guidewire and PEG tube were then pulled through the mouth and esophagus and snug to the abdominal wall. The bumper was placed and noted to be at 2cm at the skin. There was scant evidence of bleeding at the skin controlled with direct pressure. A
complete dictation for the EGD will be done separately by Dr. Quintanilla. The patient tolerated the procedure well and was transferred to recovery room in stable condition.
[2024-12-05] MEDS: DUONEB INH (15:50)
--- NOTE | 2024-12-05 15:56 | CM ---
Pt remains of oxygen 2 liters NC POx 96%.
NPO for Peg tube placement today.
Referral for SNF -placed for [facility].
Will need to confirm with SNF closer to discharge.
Pt will need to be tolerating tube feeding prior to dc to SNF
PLAN Locate SNF establish Tube feedings.
[2024-12-05] MEDS: XANAX 0.5 MG TUBE ×2 (16:30→21:23)
[2024-12-05] MEDS: NSS 500 IV (16:56)
[2024-12-05 17:35] LABS: Hematocrit 36.0 % (37.0-47.0); Hemoglobin 12.5 g/dL (12.0-16.0); Mean Corp Hgb Conc. 34.7 g/dL (33.0-37.0); Mean Corpuscular Volume 84.5 fL (81.0-99.0); Platelet Count 184 10^3/uL (130-400); Red Cell Dist. Width 16.4 % (11.5-14.5)
--- NOTE | 2024-12-05 17:36 | PTCARENOTE ---
Addendum entered by Marylou Park RN 12/05/24 17:42:
Pt expressed pain to Dr. Linares. placed one time order for morphine if patient should need medication overnight.
Original Note:
Received pt s/p PEG placement. Pt bleeding through gauze/abdominal binder. Applied pressure. Notified Dr. Quintanilla and resident Dr. Linares. Bleeding stopped after about total of 20 minutes of pressure. New abdominal binder applied. Dr. Quintanilla said Ok to
use PEG for meds. Administered medication, see MAR. Bladder scan pt for 150. Pt resting comfortably in bed. No further complaints at this time.
[2024-12-05 17:53] LABS: Blood Urea Nitrogen 29 mg/dl (7-17); Calcium 8.2 mg/dl (8.4-10.2); Carbon Dioxide 27 mmol/L (22-30); Chloride 91 mmol/L (98-107); Estimated Creatinine Clearance 55 ml/min; Glucose 120 mg/dl (70-99); Magnesium 1.9 mg/dl (1.6-2.3); Potassium 3.6 mmol/L (3.5-5.1); Sodium 122 mmol/L (135-145); eGFR > 60.00
[2024-12-05 18:06] LABS: Glucose - Point of Care 121 mg/dl (70-99)
[2024-12-05] MEDS: LIPITOR 40 MG TUBE (18:16)
[2024-12-05 18:47] VITALS: BP 109/76
[2024-12-05] MEDS: LYRICA 50 MG TUBE (20:08)
[2024-12-05] MEDS: DEPAKOTE (12 HR RELEASE) 500 MG PO (20:08)
[2024-12-05] MEDS: ZANAFLEX 4 MG TUBE (21:22)
[2024-12-05] MEDS: SENNA SYRUP 17.6 MG TUBE (21:23)
[2024-12-05] MEDS: DESYREL 150 MG TUBE (21:23)
[2024-12-05] MEDS: ROBITUSSIN 100 MG PO (21:23)
[2024-12-06] VITALS (23 sets, daily range): BP systolic 69–158; BP diastolic 46–145; BMI 13.8
[2024-12-06 00:18] LABS: Glucose - Point of Care 118 mg/dl (70-99)
--- NOTE | 2024-12-06 03:30 | PTCARENOTE ---
PCT made this RN aware that pt's PEG placement is bleeding through gauze and abdominal binder. Pressure applied, after 15 minutes bleeding stopped. CODING FILE CLERK Radha Pappas made aware. Flushed PEG tube with 20 ml of sterile water, no resistance felt. Pt
tolerated flush well. Plan of care is ongoing.
[2024-12-06 04:36] LABS: Glucose - Point of Care 131 mg/dl (70-99)
[2024-12-06] MEDS: NSS 1000 IV (05:13)
[2024-12-06] MEDS: TRANEXAMIC ACID 100 IV (05:14)
[2024-12-06 05:15] LABS: Hematocrit 19.5 % (37.0-47.0); Hemoglobin 6.6 g/dL (12.0-16.0); Mean Corp Hgb Conc. 33.8 g/dL (33.0-37.0); Mean Corpuscular Volume 86.3 fL (81.0-99.0); Platelet Count 133 10^3/uL (130-400); Red Cell Dist. Width 16.4 % (11.5-14.5)
--- NOTE | 2024-12-06 05:24 | W.PN.UPDATE ---
Update Note
Progress Note Update
Notified to assess patient's PEG site by RN due to bleeding. Per RN patient has been manipulating the PEG and abdominal binder. Upon assessment, PEG site had large amount of bloody drainage around the site. Patient became hypotensive and
tachycardic. Consulted on-call Sx Dr. Mosley. Rx TXA 1g, 1U PRBC recommended and ordered. 1L IVF bolus infusing, Pressure around the site held for about 20minutes which seems to slow down the bleeding. Patient transferred to ICU.
--- NOTE | 2024-12-06 05:30 | PTCARENOTE ---
Assumed care of patient after RTT that 4E RN called due to bleeding from around new PEG site that was placed 12/05. Pt's BP low at rapid but responding to 1L NSS bolus. blood pressure in the low 100's upon arrival to ICU. Repeat labs and new IV
placed. Pt assessed. Call elaine within reach. TXA given as ordered, see MAR. Order for 1 unit of PRBC's pending repeat hgb. Call elaine within reach. Will continue to monitor.
--- NOTE | 2024-12-06 05:57 | RR ---
A Rapid Response was called on this patient, please see Rapid Response form.
See Patient Care Note. CASINO DUTY MANAGER Radha Pappas made aware, assessed pt due to large volume of bloody drainage around the site. Pt was hypotensive and tachycardic. Patient transferred to ICU.
[2024-12-06 06:08] LABS: Hematocrit 26.7 % (37.0-47.0); Hemoglobin 9.1 g/dL (12.0-16.0); Mean Corp Hgb Conc. 34.1 g/dL (33.0-37.0); Mean Corpuscular Volume 86.4 fL (81.0-99.0); Platelet Count 196 10^3/uL (130-400); Red Cell Dist. Width 16.9 % (11.5-14.5)
[2024-12-06 07:04] LABS: ALT (SGPT) 20 U/L (0-35); AST (SGOT) 20 U/L (14-36); Albumin 3.0 g/dl (3.5-5.0); Alkaline Phosphatase 39 U/L (38-126); Blood Urea Nitrogen 33 mg/dl (7-17); Calcium 7.4 mg/dl (8.4-10.2); Carbon Dioxide 25 mmol/L (22-30); Chloride 97 mmol/L (98-107); Estimated Creatinine Clearance 55 ml/min; Glucose 105 mg/dl (70-99); Magnesium 1.9 mg/dl (1.6-2.3); Potassium 3.7 mmol/L (3.5-5.1); Sodium 127 mmol/L (135-145); Total Protein 5.0 g/dl (6.3-8.2); eGFR > 60.00
--- NOTE | 2024-12-06 07:11 | W.PN.GI.CBS2 ---
Addendum entered and electronically signed by TIA Lugo 12/06/24 07:39:
Pt also with hypotension and tachycardia that is improving s/p fluid bolus
Original Note:
Today's Communication / Plan
-
s/p peg 12/05- bleeding 12/05 post -op and overnight
no stools and minimal drainage on irrigation -- I suspect this is a local external bleeding source
if recurrent bleeding check if site can be localized and if amendable for suture/local treatment per surgical team
hbg 14.1--12.5--6.6(per staff not accurate as may have been drawn above IV--dilutional),--9.1
will repeat this afternoon and add INR
transfusion held
cont to trend hbg and stool record
hold tube feeds this am to ensure bleeding improved
update surgical team
cont off Lovenox
cont PPI
keep electrolytes corrected per medical team with concern for refeeding
I updated sister on bleeding post- procedure and move to ICU
Assessment / Plan
-
Pt is a 64yo with hx prior peg years ago with wt loss, lung CA (pt recall left upper lobe)2017 with prior radiation and chemo recurrence with mets to brain with prior brain surgery and radiation in 2023 following at [facility], seizures,
anxiety/depression, HTN, sacral wound, and chronic pain on chronic narcotics with admission with speech difficulty, COPD exacerbation with elevated troponin and concern for CHF on admission with cardiology and pulm evaluation. She has been seen
by speech therapy with concern for pharyngeal stasis and inability to clear pharyngeal residue with aspiration. Pt has decided on comfort foods and initially declined peg but now agreeable to peg. 12/03 temp DHT placed for nutrition to allow
further pulm optimization prior to peg.
-dysphagia wither pharyngeal stasis on VSE
-dystonia
-s/p peg 12/05 with post procedure bleeding
-anemia acute blood loss with bleeding post-peg
-wt loss
-constipation
-COPD exacerbation on admission
-elevated troponin
-CHF on admission
-hx prior peg with wt loss in past
-hyponatremia
-hypokalemia
other med problems:
-lung Ca 2018 with prior radiation and chemo recurrence with mets to brain with prior brain surgery and radiation in 2023
-hx seizures
-anxiety/depression
-HTN
-sacral wound
-chronic pain with chronic narcotic use
-tobacco abuse
-DNR
PLAN:
s/p peg 12/05- bleeding 12/05 post -op and overnight
no stools and minimal drainage on irrigation -- I suspect this is a local external bleeding source
if recurrent bleeding check if site can be localized and if amendable for suture/local treatment per surgical team
hbg 14.1--12.5--6.6(per staff not accurate as may have been drawn above IV--dilutional),--9.1
will repeat this afternoon and add INR
transfusion held
cont to trend hbg and stool record
hold tube feeds this am to ensure bleeding improved
update surgical team
cont off Lovenox
cont PPI
keep electrolytes corrected per medical team with concern for refeeding
I updated sister on bleeding post- procedure and move to ICU
Subjective
Subjective
Date of Service: December 06, 2024
noted bleeding post procedure and overnight, no current bleeding, NPO, no stools overnight per staff minimal drainage on irrigation overnight
Objective
Data Reviewed
Laboratory Data:
Laboratory Results
12/06/24 05:48
Laboratory Results
Phosphorus 3.6 mg/dl (2.5-4.5) 12/06/24 06:20
Phosphorus Cancelled 12/06/24 06:20
Magnesium 1.9 mg/dl (1.6-2.3) 12/06/24 06:20
Magnesium Cancelled 12/06/24 06:20
Total Bilirubin 1.1 mg/dl (0.2-1.3) 12/06/24 06:20
AST 20 U/L (14-36) 12/06/24 06:20
ALT 20 U/L (0-35) 12/06/24 06:20
Alkaline Phosphatase 39 U/L (38-126) 12/06/24 06:20
Vital Signs and I&O:
Vital Signs
Temp Pulse Resp BP Pulse Ox
98.1 F 88 20 95/70 93
12/06/24 05:32 12/06/24 05:21 12/06/24 05:21 12/06/24 05:21 12/06/24 05:21
I&O
12/05/24 12/06/24 12/07/24
06:59 06:59 06:59
Intake Total 1960 / 1960
Output Total 1600 / 1600 700 / 700
Balance -1600 / -1600 1260 / 1260
Physical Exam
Physical Exam
HEENT: Anicteric and Moist mucous membranes
Cardiology: Normal Sinus Rhythm
Pulmonary: Other (decreased )
GI: Soft, Non Distended, Tender (minimal with peg ) and Other (peg with small dressing under bumper with dried blood )
Neuro: Non Focal (conversant and recall events of last PM)
[2024-12-06] MEDS: PULMICORT 0.5 MG INH ×2 (07:16→19:12)
[2024-12-06] MEDS: DUONEB 3 ML INH ×4 (07:16→19:12)
--- NOTE | 2024-12-06 07:30 | PTCARENOTE ---
Received patient in sleep, arousable to voice, A&Ox3, on NC 2L, NSR w/ PACs, BP WNL, PEG tube site no active bleeding seen, w/ urinary retention, on straight cath protocol.
--- NOTE | 2024-12-06 07:30 | CON.INTV ---
Consultation
Consultation Request
Date/Time Consultation Requested: 12/06/2024
Date/Time Consultation Performed: 12/06/2024
Reason for Consultation: Bleeding from PEG tube site
Medical History
-
Chief Complaint: Bleeding from PEG tube site
History of Present Illness:
Initial Pulm consult 11/27 (Dr. Georges)
64-year-old smoking female with underlying suspected COPD, depression, anxiety, chronic pain, CVA, and previous lung cancer presented with increasing shortness of breath felt to have COPD exacerbation-pulmonary consulted for shortness of breath/COPD
exacerbation 11/27/2024. Patient continues to have significant shortness of breath with minimal exertion. She is not on home oxygen. She continues to smoke half pack of cigarettes daily. She denies any chest pain, chest tightness, pleurisy, chest
congestion, productive cough, abdominal pain, nausea, lower extremity swelling or weakness.
12/06/2024.
Patient had PEG tube placement on 12/05/2024. Overnight patient developed significant bleeding around the PEG tube site in addition to hypotension. Patient was volume resuscitated with 1 L crystalloids and was emergently transferred to ICU. She
did not require any pressor support. Tranexamic acid was given and defense attorney consultation was requested for further input.
Past Medical History
Past Medical History: None (Cigarette smoker. COPD. History of lung cancer. History of brain cancer. Depression/anxiety. Chronic pain. History of CVA. Seizure disorder.)
Social History
Tobacco: Smoker ([id number] smoker-still smoking half pack of cigarettes daily)
Alcohol: None
Drug: None
Personal: Single
Occupational Exposures: No known asbestos exposure
Environmental Exposures: No known tuberculosis exposure
Family History
Family History: Reviewed & Not Pertinent
Allergies / Home Medications
Allergies
Allergy/AdvReac Type Severity Reaction Status Date / Time
codeine Allergy Unknown Verified 11/26/24 12:57
Home Medications
�Medication �Instructions �Recorded �Confirmed �Last Taken �Type
albuterol sulfate 90 mcg/actuation 2 puff inhalation R Q6HPRN PRN sob 11/26/24 11/26/24 Unknown History
aerosol inhaler
alprazolam 0.5 mg tablet (Xanax) 0.5 mg PO QID Mental Health/Anxiety 11/26/24 11/26/24 11/25/24 History
divalproex 125 mg capsule,delayed 500 mg PO BID Neurological 11/26/24 11/26/24 11/25/24 History
release sprinkle Condition
duloxetine 20 mg capsule,delayed 20 mg PO DAILY with 60mg 11/26/24 11/26/24 11/25/24 History
release
duloxetine 60 mg capsule,delayed 60 mg PO DAILY Depression 11/26/24 11/26/24 11/25/24 History
release
megestrol 400 mg/10 mL (40 mg/mL) 200 mg PO DAILY Hormonal Agent 11/26/24 11/26/24 11/25/24 History
oral suspension
oxycodone 10 mg tablet 10 mg PO Q6HPRN PRN severe pain 11/26/24 11/26/24 Unknown History
pregabalin 50 mg capsule (Lyrica) 50 mg PO BID Neurological Condition 11/26/24 11/26/24 11/25/24 History
tizanidine 4 mg tablet 4 mg PO HS Muscle Spasms 11/26/24 11/26/24 11/25/24 History
trazodone 150 mg tablet 150 mg PO HS Sleep 11/26/24 11/26/24 11/25/24 History
Review of Systems
-
Hematologic/Lymphatic: Other (No new symptoms reported)
Vitals / Labs / Diagnostic Testing
Vital Signs
Temp Pulse Resp BP Pulse Ox
98.1 F 96 18 95/70 93
12/06/24 05:32 12/06/24 07:20 12/06/24 07:20 12/06/24 05:21 12/06/24 07:20
Diagnostic Testing:
Physical Exam
-
HEENT: Normocephalic (Somewhat pale looking conjunctiva)
Cardiovascular: S1/S2
Respiratory: Clear
GI: Soft and Non Distended
Skin: Warm
General: Comfortable
Assessment
-
64-year-old smoking female with underlying suspected COPD, depression, anxiety, chronic pain, CVA, and previous lung cancer presented with increasing shortness of breath felt to have COPD exacerbation-pulmonary consulted for shortness of breath/COPD
exacerbation 11/27/2024
COPD-suspected gold stage IV with acute exacerbation
Bedside spirometry. 11/27/24-FEV1 720 mL-30%, 17% improvement postbronchodilator
Leukocytosis
Chronic hypercapnia-ABG 11/26/2024--53/65/7.39
Mild hyperglycemia
Mild hyponatremia
12/06, Bleeding from PEG tube site
Conditions present prior to admission:
Cigarette smoker.
COPD.
History of lung cancer.
History of brain cancer.
Depression/anxiety.
Chronic pain.
History of CVA.
Seizure disorder..
Aortic regurgitation-moderate by echo
Plan
#1. PEG tube site bleeding with hypotension.
- S/p tranexamic acid and 1 L crystalloids, local pressure
- Hemodynamically stable now, no further active bleeding noted
- Hold off blood transfusion considering hemoglobin is above 7
- Continue to hold subcu Lovenox
- Serial H/H
- Hemodynamically stable, can transfer out of ICU
Respiratory decompensation consistent with underlying significant COPD with acute exacerbation--FEV1 30%
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
Patient reports prior history of stage III lung cancer treated with chemotherapy and radiation and follows up with an oncologist in [facility], details unavailable for review
Patient requires admission for severe COPD exacerbation and respiratory failure
Remains on low rate supplemental oxygen- 2 L improved
No longer bronchospastic- but mild bilateral rhonchi noted
Continue nebulizer regimen while in the hospital: DuoNebs/Pulmicort.
Mucolytic's
Prednisone taper, decrease by 10 mg every 48 hours to off. Decreased to 30mg today
Incentive spirometry
Acapella-encouraged
s/p PEG tube 12/05.
Component of HF on this admission, proBNP 5580
CXR with bilateral effusions
Had been getting diuresis but held now
Cardiology following, last seen 11/30
Possible aspiration pneumonia, DHT placed
Cultures reviewed.
Unable to produce sputum
Empiric antibiotics if acute bacterial bronchitis or acute bacterial lower respiratory tree infection is suspected-ampicillin initiated-complete 7 days.
Afebrile, no leukocytosis resolved
Smoking cessation counseling ongoing
Nicotine patch
DVT prophylaxis-on Lovenox, now on hold in view of PEG tube site bleeding
GI prophylaxis recommended if on steroids for prolonged period-on pantoprazole
Would benefit from triple inhaler therapy such as Trelegy or Breztri at time of discharge
Outpatient pulmonary [id number], inhalers, pulmonary rehab, smoking cessation counseling, low-dose lung cancer screening CT, etc.
Diagnostic data:
Spirometry 11/27/24-FEV1 720 mL-30%, 17% improvement postbronchodilator.
Chest x-ray 11/28/24-small bilateral pleural effusions.
Chest x-ray 11/26/2024-mild blunting lateral and posterior costophrenic angles bilaterally suggesting small bilateral pleural effusions
Chest x-ray 06/30/2013-NAD
Echocardiogram 11/27/24-EF 59%, moderately dilated right ventricle, mild to moderate aortic valve regurgitation.
--- NOTE | 2024-12-06 07:44 | W.CON.NEPH ---
Consultation
-
Date/Time Consultation Requested: 12/05/24 6:30pm
Date/Time Consultation Performed: 12/06/2024 7:45 AM
Requesting Provider: Dr. Medley
Performing Provider: Dr. Galvan
Reason for Consultation: Hyponatremia
Medical History
-
Chief Complaint: Hyponatremia
History of Present Illness:
Patient is a 64-year-old female with past medical history significant for depression/anxiety (on Xanax and Cymbalta), chronic pain, seizure(managed on divalproex), CVA, Hx lung cancer and Hx brain cancer (s/p resection)who presented to [facility] ED for
evaluation of shortness of breath and cough for past week. Patient reports that breathing has been off for approximately a week, sister (at bedside) feels it has been off for a longer period of time. Patient reports an associated productive cough.
Patient neighbor in [place] brought patient to her sisters house last evening for appearing worse than her baseline. She was taken to urgent care who referred her to ED for evaluation and treatment. Patient presented hypoxic on room air,
requiring 4 Liters NC. She denies any recent fever, chills, chest pain, nausea, vomting constipation, diarrhea or urinary symptoms. The patient was admitted to the hospital for COPD exacerbation and likely aspiration PNA and CHF. The patient
underwent PEG placement yesterday .she was transferred to the ICU last evening for PEG site bleeding as the patient then became hypotensive and tachycardic . Over the course of her admission she had developed hyponatremia with a serum sodium level
of 122 on 12/05/2024 and nephrology was consulted for hyponatremia management
Past Medical History
depression/anxiety
chronic pain
seizure
CVA
Hx lung cancer
Hx brain cancer
Past Surgical History: Reports Other
Additional Past Surgical History:
brain tumor extraction
Social History
Tobacco: Smoker
Alcohol: None
Drug: None
Family History
Family History: Not Pertinent
Allergies / Home Medications
Allergy/AdvReac Type Severity Reaction Status Date / Time
codeine Allergy Unknown Verified 11/26/24 12:57
�Medication �Instructions �Recorded �Confirmed �Type
albuterol sulfate 90 mcg/actuation 2 puff inhalation R Q6HPRN PRN sob 11/26/24 11/26/24 History
aerosol inhaler
alprazolam 0.5 mg tablet (Xanax) 0.5 mg PO QID Mental Health/Anxiety 11/26/24 11/26/24 History
divalproex 125 mg capsule,delayed 500 mg PO BID Neurological 11/26/24 11/26/24 History
release sprinkle Condition
duloxetine 20 mg capsule,delayed 20 mg PO DAILY with 60mg 11/26/24 11/26/24 History
release
duloxetine 60 mg capsule,delayed 60 mg PO DAILY Depression 11/26/24 11/26/24 History
release
megestrol 400 mg/10 mL (40 mg/mL) 200 mg PO DAILY Hormonal Agent 11/26/24 11/26/24 History
oral suspension
oxycodone 10 mg tablet 10 mg PO Q6HPRN PRN severe pain 11/26/24 11/26/24 History
pregabalin 50 mg capsule (Lyrica) 50 mg PO BID Neurological Condition 11/26/24 11/26/24 History
tizanidine 4 mg tablet 4 mg PO HS Muscle Spasms 11/26/24 11/26/24 History
trazodone 150 mg tablet 150 mg PO HS Sleep 11/26/24 11/26/24 History
Review of Systems
-
History Source: Patient
All other systems: Negative unless noted
Constitutional: Fatigue
Respiratory: Trouble Breathing
Cardiac: No Symptoms
Abdomen/GI: Other (PEG)
: Other (Intermittent urinary retention)
Musculoskeletal: Muscle Pain
Skin: Other (Sacral decub)
Neurological: No Symptoms
Endocrine: No Symptoms
Hematologic/Lymphatic: No Symptoms
Physical Exam
Vital Signs
Vital Signs
Temp Pulse Resp BP Pulse Ox
97.8 F 96 18 95/70 93
12/06/24 07:36 12/06/24 07:20 12/06/24 07:20 12/06/24 05:21 12/06/24 07:20
Lab Results
WBC 14.0 10^3/uL (4.8-10.8) H 12/06/24 05:48
RBC 3.09 10^6/uL (4.20-5.40) L 12/06/24 05:48
Plt Count 196 10^3/uL (130-400) D 12/06/24 05:48
eGFR > 60.00 12/06/24 06:20
eGFR Cancelled 12/06/24 06:20
Gbw-J-Tdymecbgbgm Pept 951 pg/ml 12/03/24 07:24
Albumin 3.0 g/dl (3.5-5.0) L 12/06/24 06:20
Physical Exam
General: AOx3, Nontoxic , NAD,cachectic
HEENT: PERRL, EOMI, Anicteric, Conjunctivae Clear, Ear/Nose Intact, Hearing Normal, Oropharynx Clear/dry , Dentition Intact, Facial Symmetry, Neck Supple, Neck: Trachea Midline, No JVD and No Thyromegaly, no Bruits
Respiratory: coarse to auscultation, decreased breath sounds to bases, bilaterally with normal lung exersion
Cardiac: S1/S2 and Regular Rate/Rhythm
Breast: Deferred by me
Abdomen: Soft, Nontender, Nondistended, decreased Bowel Sounds and No Hepatosplenomegaly, PEG
Rectal: Deferred by Provider
Genito-urinary: No Costovertebral Tenderness
Extremities: No Clubbing, No Cyanosis and No Edema
Skin: sacral decubiti
Neuro: Nonfocal/Grossly Intact, CN II-XII (Intact) and Strength (Musculoskeletal exam 5 out of 5 both upper and lower extremities)
Hematologic/Lymphatic: No Cervical Lymphadenopathy, No Submandibular Lymphadenopathy and No Supraclavicular Lymphadenopathy
Psych: Mood/afflect pleasant, Insight/judgement good and Appropriate
Vascular: plus 1 pedal and radial pulses
Data Reviewed
-
Radiology: Report Reviewed by me (Chest x-ray personally reviewed shows hyperinflated lung mensah with small effusions)
Labs: Labs Reviewed by me (BMP CBC, urine osmolality, TSH free T4, urine)
Old Records: Reviewed (Reviewed previous serum sodium levels in EMR: from date 07/02/13 140)
Assessment/Plan
-
Impression:
Hyponatremia
Acute hypoxic respiratory failure with underlying COPD exacerbation and/or aspiration pneumonia
Dysphagia status post PEG placement on 12/05/2024 with postoperative bleeding and anemia
Urinary retention
Sacral decub
Hypertension
Seizure disorder
Nonischemic myocardial injury
Hypoalbuminemia
History of brain cancer status postresection
History of lung cancer (left upper lobe resection in 2018 with prior radiation and chemo and recurrence with mets to brain
Chronic pain with chronic narcotic use
Plan:
Hyponatremia:
-Serum sodium up to 127 this morning, follow up lytes this afternoon
- Likely consistent with SIADH given elevated urine osmolality ( urine osm 541) with history of seizure disorder(on divalproex) SSRI administration in ,malignancy, and pain,
- Closely monitor urine output given urinary retention with low threshold for Olea catheter placed
- Maintain isotonic saline at this time for hemodynamic support, ARB held
-If serum sodium level would drop again I would have a low threshold for hypertonic saline
- Transfuse as needed for anemia secondary to PEG site bleeding
- Maintain accurate I's and O's
--- NOTE | 2024-12-06 08:52 | W.PN.HOSP.TC ---
Addendum entered and electronically signed by Molly Medley MD 12/06/24 13:53:
I saw and evaluated the patient independently. I reviewed the resident�s note and agree with findings and plan as documented by Dr. Floyd.
GENERAL: cachectic, chronically ill appearing female in no apparent distress
HEENT: NC/AT--very soft whispered voice--O2 NC
HEART: regular rate and rhythm, +S1, +S2, tachycardic
LUNGS : clear to auscultation bilaterally
ABDOM: soft, nontender, nondistended, + bowel sounds--PEG placed--no signs of bleeding
EXT: no cyanosis, clubbing, or edema
Acute hypoxic respiratory failure--likely due to aspiration PNA from severe dysphagia--on O2--wean as able--apprec pulm/intensivists--can downgrade to med/sugr--cont nebs, steroids--finished Unasyn--apprec speech
severe dysphagia --apprec GI--PEG placed--meds and tube feeds per GI--watch for refeeding syndrome--agree with checking daily labs including mag, phos
Acute COPD exacerbation--resolving, weaning o2--c/w DuoNeb & Pulmicort nebulizer--cont prednisone taper
Acute urinary retention--Encourage ambulation--increase flomax--may need to reinsert lam
nonischemic myocardial injury--trops peaked
Stage II and Stage III pressure sacral pressure injury--POA--apprec and cont wound care
Essential HTN--cont meds as ableHTN
Severe protein calorie malnutrition--Muscle wasting--PEG--PT/OT
Hyponatremia-- worsening, likely due to SIADH --follow sodium--may need renal- check TSH/cortisol
Tobacco Abuse-current smoker-cont nicotine patch, advised to quit
Chronic pain syndrome with narcotic dependence/Chronic anxiety disorder with benzodiazepine dependency
History of brain cancer s/p resection. In remission. Last brain MRI 07/2024 showed no disease procession/ stable changes per reading.
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
DVT proph--lovenox
Dispo eventual dc to SNF when able, patient agreeable
Original Note:
Today's Communication/Plan
-
Moved down from ICU
Ensure PT
To commence Oral feeds today
Assessment / Plan
Assessment / Plan
Assessment and plan
#To be moved down from ICU
#Severe protein calorie malnutrition
-Muscle wasting
- NPO
- PEG placed yesterday, 12/05-
-Hypotension (recent bp 133/76, 100bp) and bleeding from PEG site, now resolved
-Hold blood transfusion now (Hb 9.1)
-Hold Enoxaparin for now
-PO meds commenced
-Fu with GI for oral feeds
-Monitor for refeeding syndrome
-Daily CMP mag phos
- f/u with nutrition for further reccs
# Dysphagia, pharyngeal dysfunction
- likely attributed to prior radiation therapy, chronic smoking
-Continue with Speech therapy
#Hyponatremia, concerning for SIADH,
-Na up from 127 from 122, improved, monitor for now,
# Hypertension
- Was hypotensive last night,
-Bp improved
-Continue Losartan
# Acute COPD exacerbation due to continued tobacco use
- She is on albuterol/ipratropium, inhaled budesonide
- Deltasone PO 30mg, taper to 20mg today; per pulmonary, q48h, decrease by 10mg
- 1ppd since she was a child
- Has nicotine patch.
# Acute hypoxic respiratory failure
- Initial O2sat 66%
- Supplemental O2 for targeting 88-92%
- On 2L, O2 sat 90%
# Aspiration Pneumonia
- CXR RML/RLQ opacity; bilateral pleural effusions
- however, the aspiration pneumonia was noted to be on prior admissions.
- BCx negative; repeat CXR appears unchanged from prior
- speech modified barium swallow = high aspiration risk
# Acute urinary retention
- Lam removed yesterday and has been on voiding trial since noon yesterday
- Trial void per protocol, unsuccessful
-Re-insert Lam
# Nonischemic myocardial injury
- Elevated troponin but nonspecific EKG changes
- most likely in the setting of acute exacerbation of COPD leading to demand stress.
- troponin has decreased
- Echo on 11/27: LVEF 59%; RV dilated, Mild to moderate AR, mild TR.
- continue atorvastatin 40mg, aspirin 81mg PO
# Likely Stage 2 pressure sacral deep tissue injury that was present on admission
- this is likely stage 2 because wound care note on 12/04 states that it is stage 2, please follow-up with wound care
- Consult wound care - is following
- Barrier cream/foam
- Change position and use cushion to relieve pressure
#DVT PPX- SCD
-Levonox on hold
-PT
Anticipated Discharge: > 48 hours
Subjective/Interval History
-
Date of Service: December 06, 2024
Had hypotension and tachycardia over the night due to bleeding from PEG site yesterday and was transferred to the ICU
C/O Pain all over
Objective Data
-
Labs:
Laboratory Results
12/06/24 12/06/24 12/06/24
04:24 04:48 05:48
WBC Cancelled 9.9 14.0 H
Hgb Cancelled 6.6 L* D 9.1 L D
Hct Cancelled 19.5 L* 26.7 L
Plt Count Cancelled 133 D 196 D
PT
INR
Sodium Cancelled Cancelled
Potassium Cancelled Cancelled
Chloride Cancelled Cancelled
Carbon Dioxide Cancelled Cancelled
BUN Cancelled Cancelled
Creatinine Cancelled Cancelled
Glucose Cancelled Cancelled
Calcium Cancelled Cancelled
Total Bilirubin
AST
ALT
Alkaline Phosphatase
12/06/24 12/06/24 12/06/24
06:20 06:20 06:20
WBC
Hgb
Hct
Plt Count
PT
INR
Sodium 127 L Cancelled
Potassium 3.7 Cancelled
Chloride 97 L
Carbon Dioxide
BUN
Creatinine
Glucose
Calcium
Total Bilirubin
AST
ALT
Alkaline Phosphatase
12/06/24 12/06/24 12/06/24
06:20 06:20 06:20
WBC
Hgb
Hct
Plt Count
PT
INR
Sodium
Potassium
Chloride Cancelled
Carbon Dioxide 25 Cancelled
BUN 33 H Cancelled
Creatinine 0.5 L
Glucose
Calcium
Total Bilirubin
AST
ALT
Alkaline Phosphatase
12/06/24 12/06/24 12/06/24
06:20 06:20 06:20
WBC
Hgb
Hct
Plt Count
PT
INR
Sodium
Potassium
Chloride
Carbon Dioxide
BUN
Creatinine Cancelled
Glucose 105 H Cancelled
Calcium 7.4 L Cancelled
Total Bilirubin 1.1
AST 20
ALT 20
Alkaline Phosphatase 39
12/06/24 12/06/24
14:00 17:00
WBC
Hgb Pending
Hct Pending
Plt Count
PT Pending
INR Pending
Sodium Pending
Potassium Pending
Chloride Pending
Carbon Dioxide Pending
BUN Pending
Creatinine Pending
Glucose Pending
Calcium Pending
Total Bilirubin
AST
ALT
Alkaline Phosphatase
Vital Signs:
Vital Signs
Temp Pulse Resp BP Pulse Ox
97.8 F 96 18 95/70 93
12/06/24 07:36 12/06/24 07:20 12/06/24 07:20 12/06/24 05:21 12/06/24 07:20
I&O
12/05/24 12/06/24 12/07/24
06:59 06:59 06:59
Intake Total 1960 / 1960 0 / 0
Output Total 1600 / 1600 700 / 700 0 / 0
Balance -1600 / -1600 1260 / 1260 0 / 0
Review of Systems
-
History Source: Patient
Constitutional: Reports Fatigue
EENT: Reports No Symptoms Reported and Other (hoarse voice)
Respiratory: Reports Cough and Other (some sputum, greenish, and some trouble breathing but improved)
Cardiac: Reports No Symptoms
Abdomen/GI: Reports Other (dysphagia)
Physical Exam
-
General: Cachectic
HEENT: Other (her voice is very faint/hoarse)
Respiratory: Clear to Auscultation
Cardiac: Regular Rhythm
GI: Soft, Nontender and Other (PEG tube in place, dressing is dry. Previous dressing changed by the nurse who state that there was minimal clotted bloo)
Musculoskeletal: Other (no lower extremity edema)
Skin: Warm
Neuro: AO x 3
Psych: Anxious
Data Reviewed
-
Labs: Labs Reviewed by me, Discussed with Physician and Discussed with Patient
[2024-12-06] MEDS: MORPHINE SULFATE 1 MG IV (09:02)
[2024-12-06] MEDS: MIRALAX 17 GRAMS PO (09:18)
[2024-12-06] MEDS: NICODERM TRANSDERMAL 14 MG TRANSDERM (09:19)
[2024-12-06] MEDS: COZAAR 100 MG TUBE (09:20)
[2024-12-06] MEDS: DEPAKOTE (12 HR RELEASE) 500 MG PO (09:21)
[2024-12-06] MEDS: DELTASONE 20 MG PO (09:21)
[2024-12-06] MEDS: PROTONIX 40 MG PO (09:21)
[2024-12-06] MEDS: CYMBALTA DELAYED RELEASE 20 MG PO (09:21)
[2024-12-06] MEDS: VITAMIN B1 100 MG TUBE (09:21)
[2024-12-06] MEDS: CYMBALTA DELAYED RELEASE 60 MG PO (09:21)
[2024-12-06] MEDS: XANAX 0.5 MG TUBE ×3 (09:21→21:30)
[2024-12-06] MEDS: ROBITUSSIN 100 MG PO ×4 (09:22→21:25)
[2024-12-06] MEDS: LOW STRENGTH ASPIRIN TUBE (09:22)
--- NOTE | 2024-12-06 10:23 | W.PN.SURGUPD ---
Addendum entered and electronically signed by Chun Mosley MD 12/06/24 15:09:
I saw and examined the patient.
The METAL TESTER's note was reviewed and I agree with the note.
Original Note:
Surgical Update
Surgical Update
S: s/p PEG placement on 12/05/[address] Quintanilla and Mariusz
B: Notified by nursing that bleeding was noted around tube overnight. H/H drop from 12.6 to 9.1 (6.6 early this am, likely from diluted sample).
A: No active bleeding around tube currently. Expected site tenderness after recent procedure. No evidence of hematoma.
P: Tube feedings as per GI team. Surgery to follow peripherally, please notify if rebleeding occurs.
[2024-12-06] MEDS: LYRICA 50 MG TUBE ×2 (10:34→21:13)
--- NOTE | 2024-12-06 12:18 | W.PN.UPDATE ---
Update Note
Progress Note Update
Patient had bleeding from her PEG site (skin site) and was transferred from the floor to ICU. Her Hgb dropped from 12 to 9 (6.6 was deemed erroneous). I examined the skin wound this a.m. with surgery, which appeared to have stopped bleeding. Her
tube feed can start today. GI sign off please call with questions.
--- NOTE | 2024-12-06 12:38 | PTCARENOTE ---
Reassessed the patient, retaining urine, bladder scanned 513mL. Notified Dr. Dyson and inserted Olea for acute urinary retention.
[2024-12-06 14:47] LABS: Hematocrit 24.6 % (37.0-47.0); Hemoglobin 8.5 g/dL (12.0-16.0)
[2024-12-06 14:58] LABS: INR 1.08; PT 14.3 Sec (11.4-14.6)
[2024-12-06 15:11] LABS: Blood Urea Nitrogen 36 mg/dl (7-17); Calcium 7.9 mg/dl (8.4-10.2); Carbon Dioxide 26 mmol/L (22-30); Chloride 96 mmol/L (98-107); Estimated Creatinine Clearance 55 ml/min; Glucose 104 mg/dl (70-99); Magnesium 2.0 mg/dl (1.6-2.3); Potassium 3.7 mmol/L (3.5-5.1); Sodium 127 mmol/L (135-145); eGFR > 60.00
[2024-12-06] MEDS: ROXICODONE ORAL SOLUTION 7.5 MG TUBE ×2 (15:22→21:50)
--- NOTE | 2024-12-06 16:46 | PTCARENOTE ---
Pt was received from ICU to room 401-1. Pt took a few steps from the wheelchair to transfer to the bed. PEG tube on abdomen intact, no bleeding noted. Pt oriented to the care plan. VSS.
[2024-12-06] MEDS: LIPITOR 40 MG TUBE (18:01)
[2024-12-06] MEDS: DESYREL 150 MG TUBE (21:14)
[2024-12-06] MEDS: FLOMAX 0.4 MG PO (21:30)
[2024-12-06] MEDS: ZANAFLEX 4 MG TUBE (21:31)
[2024-12-06] MEDS: SENNA SYRUP TUBE (22:03)
[2024-12-06] MEDS: SENNA SYRUP 17.6 MG TUBE (22:07)
[2024-12-06] MEDS: DEPAKENE 250 MG TUBE (22:08)
[2024-12-07 00:33] LABS: Glucose - Point of Care 137 mg/dl (70-99)
[2024-12-07] MEDS: DEPAKENE 250 MG TUBE ×4 (01:40→17:13)
[2024-12-07] MEDS: ROXICODONE ORAL SOLUTION 7.5 MG TUBE ×3 (04:29→17:14)
[2024-12-07 06:00] VITALS: BMI 13.4
[2024-12-07 06:56] LABS: Glucose - Point of Care 137 mg/dl (70-99)
--- NOTE | 2024-12-07 07:12 | W.PN.HOSP.TC ---
Addendum entered and electronically signed by Molly Medley MD 12/07/24 17:07:
I saw and evaluated the patient independently. I reviewed the resident�s note and agree with findings and plan as documented by Dr. Floyd.
GENERAL: cachectic, chronically ill appearing female in no apparent distress
HEENT: NC/AT--very soft whispered voice--O2 NC
HEART: regular rate and rhythm, +S1, +S2, tachycardic
LUNGS : clear to auscultation bilaterally
ABDOM: soft, nontender, nondistended, + bowel sounds--PEG placed--no signs of bleeding
EXT: no cyanosis, clubbing, or edema
Acute hypoxic respiratory failure--likely due to aspiration PNA from severe dysphagia--on O2--wean as able--apprec pulm/intensivists--can downgrade to med/surg--cont nebs, steroids--finished Unasyn--apprec speech
severe dysphagia --apprec GI--PEG placed--meds and tube feeds per GI--watch for refeeding syndrome--agree with checking daily labs including mag, phos
acute blood loss anemia--bleeding from PEG tube the other night--trend HGB--may need transfusion if HGB < 7
Acute COPD exacerbation--resolving, weaning o2--c/w DuoNeb & Pulmicort nebulizer--cont prednisone taper
Acute urinary retention--Encourage ambulation--increase flomax--may need to reinsert lam
nonischemic myocardial injury--trops peaked
Stage II and Stage III pressure sacral pressure injury--POA--apprec and cont wound care
Essential HTN--cont meds as ableHTN
Severe protein calorie malnutrition--Muscle wasting--PEG--PT/OT
Hyponatremia-- worsening, likely due to SIADH --follow sodium--may need renal- check TSH/cortisol
Tobacco Abuse-current smoker-cont nicotine patch, advised to quit
Chronic pain syndrome with narcotic dependence/Chronic anxiety disorder with benzodiazepine dependency
History of brain cancer s/p resection. In remission. Last brain MRI 07/2024 showed no disease procession/ stable changes per reading.
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
DVT proph--lovenox
Dispo eventual dc to SNF when able, patient agreeable
Original Note:
Today's Communication/Plan
-
Continue on going care
Assessment / Plan
Assessment / Plan
A 64-year-old female with past medical history significant for depression/anxiety, chronic pain, seizure, CVA (recent X2 TIA), Hx lung cancer and Hx brain cancer who presented with a PMHX of Cough and SOB
She was admitted for Hypoxic respiratory failure with Acute COPD Excacerbation, Pressure sores, Dysphasia and dysphonia with PEM on PEG tube
Assessment and plan
#Severe protein calorie malnutrition
-Muscle wasting
- NPO
- PEG placed Day 3 12/05-
-Hb is dropping 7.6 (Hb 9.1)
-Repeat CBC
-PO meds/ commenced
-Monitor for refeeding syndrome
-Daily CMP mag phos Mg 2.1 Ph- 2.8
#Hypotension
-(recent bp 133/76, 100bp) and bleeding from PEG site, now resolve
#Hyponatremia, concerning for SIADH,
-Na up from 127 stable, continue monitoring for now,
-Electrolytes stable
Bun/Cr 32/0.4 ( from 36/0.5
# Dysphagia, pharyngeal dysfunction
- likely attributed to prior radiation therapy, chronic smoking
-Continue with Speech therapy
# Hypertension
-Bp improved 159/80
-Continue Losartan
# Acute COPD exacerbation due to continued tobacco use
-C/O Cough
-Monitor for change
- She is on albuterol/ipratropium, inhaled budesonide
- Deltasone PO 30mg, taper to 20mg today; per pulmonary, q48h, decrease by 10mg
- 1ppd since she was a child
- Has nicotine patch.
# Acute hypoxic respiratory failure
- Initial O2sat 66%
- Supplemental O2 for targeting 88-92%
- On 2L, O2 sat 90%
# Aspiration Pneumonia
- CXR RML/RLQ opacity; bilateral pleural effusions
- however, the aspiration pneumonia was noted to be on prior admissions.
- BCx negative; repeat CXR appears unchanged from prior
- speech modified barium swallow = high aspiration risk
# Acute urinary retention
- Lam removed yesterday and has been on voiding trial since noon yesterday
-Now on Lam
# Nonischemic myocardial injury
- Elevated troponin but nonspecific EKG changes
- most likely in the setting of acute exacerbation of COPD leading to demand stress.
- troponin has decreased
- Echo on 11/27: LVEF 59%; RV dilated, Mild to moderate AR, mild TR.
- Continue atorvastatin 40mg, aspirin 81mg PO
# Likely Stage 2 pressure sacral deep tissue injury that was present on admission
- this is likely stage 2 because wound care note on 12/04 states that it is stage 2, please follow-up with wound care
- Consult wound care - is following
- Barrier cream/foam
- Change position and use cushion to relieve pressure
#DVT PPX- SCD
-Resume Levonox
#Dispo- To SNF
Anticipated Discharge: Within 24 hours
Subjective/Interval History
-
Date of Service: December 07, 2024
Over night event was uneventful as she has commenced her PEG feed, tolerating it now at, goal (35nl/hr)
C/O wet cough
No more bleeding
Objective Data
-
Labs:
Laboratory Results
12/07/24 12/07/24 12/07/24
06:11 06:11 06:11
WBC Pending
Hgb Pending
Hct Pending
Plt Count Pending
Sodium Pending Pending
Potassium Pending Pending
Chloride Pending
Carbon Dioxide
BUN
Creatinine
Glucose
Calcium
12/07/24 12/07/24 12/07/24
06:11 06:11 06:11
WBC
Hgb
Hct
Plt Count
Sodium
Potassium
Chloride Pending
Carbon Dioxide Pending Pending
BUN Pending Pending
Creatinine Pending
Glucose
Calcium
12/07/24 12/07/24 12/07/24
06:11 06:11 06:11
WBC
Hgb
Hct
Plt Count
Sodium
Potassium
Chloride
Carbon Dioxide
BUN
Creatinine Pending
Glucose Pending Pending
Calcium Pending Pending
12/07/24
17:00
WBC
Hgb
Hct
Plt Count
Sodium Pending
Potassium Pending
Chloride Pending
Carbon Dioxide Pending
BUN Pending
Creatinine Pending
Glucose Pending
Calcium Pending
Vital Signs:
Vital Signs
Temp Pulse Resp BP Pulse Ox
98.3 F 105 16 134/80 91
12/06/24 23:41 12/06/24 23:41 12/06/24 23:41 12/06/24 23:41 12/06/24 23:41
I&O
12/06/24 12/07/24 12/08/24
06:59 06:59 06:59
Intake Total 1960 / 1960 210 / 210
Output Total 700 / 700 1000 / 1000
Balance 1260 / 1260 -790 / -790
Review of Systems
-
History Source: Patient
Constitutional: Reports Fatigue
EENT: Reports Other (soft voice)
Respiratory: Reports Cough and Other (wet cough)
Cardiac: Reports No Symptoms
Abdomen/GI: Reports Other
Physical Exam
-
General: Cachectic
Respiratory: Clear to Auscultation (Transmitted sounds. On INO2 2L)
Cardiac: Regular Rhythm and S1/S2
GI: Soft, Nondistended, Flat and Peg Tube (Wound dressing clean and dry, no active bleeding, )
[2024-12-07] MEDS: MIRALAX 17 GRAMS PO (07:32)
[2024-12-07] MEDS: CYMBALTA DELAYED RELEASE 60 MG PO (07:32)
[2024-12-07] MEDS: NICODERM TRANSDERMAL 14 MG TRANSDERM (07:32)
[2024-12-07] MEDS: ROBITUSSIN 100 MG PO ×2 (07:32→13:34)
[2024-12-07] MEDS: CYMBALTA DELAYED RELEASE 20 MG PO (07:33)
[2024-12-07] MEDS: LYRICA 50 MG TUBE ×2 (07:33→20:57)
[2024-12-07] MEDS: XANAX 0.5 MG TUBE ×3 (07:33→20:59)
[2024-12-07] MEDS: VITAMIN B1 100 MG TUBE (07:33)
[2024-12-07] MEDS: LOW STRENGTH ASPIRIN 81 MG TUBE (07:33)
[2024-12-07] MEDS: COZAAR 100 MG TUBE (07:33)
[2024-12-07] MEDS: DELTASONE 20 MG PO (07:34)
[2024-12-07] MEDS: PREVACID 30 MG TUBE (07:34)
[2024-12-07 07:55] VITALS: BP 159/80
[2024-12-07] MEDS: DUONEB 3 ML INH ×2 (07:59→11:14)
[2024-12-07] MEDS: PULMICORT 0.5 MG INH (07:59)
[2024-12-07 08:00] LABS: Hematocrit 22.2 % (37.0-47.0); Hemoglobin 7.6 g/dL (12.0-16.0); Mean Corp Hgb Conc. 34.2 g/dL (33.0-37.0); Mean Corpuscular Volume 86.7 fL (81.0-99.0); Platelet Count 147 10^3/uL (130-400); Red Cell Dist. Width 16.3 % (11.5-14.5)
[2024-12-07 08:18] LABS: Blood Urea Nitrogen 32 mg/dl (7-17); Calcium 8.0 mg/dl (8.4-10.2); Carbon Dioxide 28 mmol/L (22-30); Chloride 95 mmol/L (98-107); Estimated Creatinine Clearance 53 ml/min; Glucose 104 mg/dl (70-99); Potassium 4.1 mmol/L (3.5-5.1); Sodium 127 mmol/L (135-145); eGFR > 60.00
[2024-12-07 08:29] LABS: Blood Urea Nitrogen 33 mg/dl (7-17); Calcium 8.4 mg/dl (8.4-10.2); Carbon Dioxide 29 mmol/L (22-30); Chloride 93 mmol/L (98-107); Estimated Creatinine Clearance 53 ml/min; Glucose 107 mg/dl (70-99); Magnesium 2.1 mg/dl (1.6-2.3); Potassium 4.1 mmol/L (3.5-5.1); Sodium 126 mmol/L (135-145); eGFR > 60.00
--- NOTE | 2024-12-07 11:16 | W.PN.NEPH.PH ---
Today's Communication / Plan
-
Follow BMP
Tube feeds now on with [facility] at 10cc/hr
Assessment/Plan
-
Impression:
Hyponatremia (urine osm 531)
Acute hypoxic respiratory failure with underlying COPD exacerbation and/or aspiration pneumonia
Dysphagia status post PEG placement on 12/05/2024 with postoperative bleeding and anemia
Urinary retention
Sacral decub
Hypertension
Seizure disorder
Nonischemic myocardial injury
Hypoalbuminemia
History of brain cancer status postresection
History of lung cancer (left upper lobe resection in 2018 with prior radiation and chemo and recurrence with mets to brain
Chronic pain with chronic narcotic use
Plan:
Hyponatremia:
-Serum sodium up to 127 this morning, follow up lytes this afternoon
- Likely consistent with SIADH given elevated urine osmolality ( urine osm 541) with history of seizure disorder(on divalproex) SSRI administration in ,malignancy, and pain,
- Olea now in with 1 L out
- Maintain losartan for hypertension control
-If serum sodium level would drop again I would have a low threshold for hypertonic saline or Samsca
- Transfuse as needed for anemia secondary to PEG site bleeding
- Maintain accurate I's and O's
-
-
Date of Service: December 07, 2024
CC / HPI / ROS
-
Chief Complaint:
Hyponatremia
History of Present Illness:
Serum sodium stable at 127
On tube feeding with 10 cc/h fluid water flush
Blood pressure stable on losartan
Review of Systems:
Significant allover body pain
Nonoliguric via Olea
No fever
Weight down
Labs
-
Labs:
WBC 13.6 10^3/uL (4.8-10.8) H 12/07/24 06:11
RBC 2.56 10^6/uL (4.20-5.40) L 12/07/24 06:11
Hgb 7.6 g/dL (12.0-16.0) L 12/07/24 06:11
Hct 22.2 % (37.0-47.0) L 12/07/24 06:11
Plt Count 147 10^3/uL (130-400) D 12/07/24 06:11
eGFR > 60.00 12/07/24 06:11
eGFR > 60.00 12/07/24 06:11
Pto-K-Jmnolwulnvp Pept 951 pg/ml 12/03/24 07:24
Albumin 3.0 g/dl (3.5-5.0) L 12/06/24 06:20
Physical Exam
-
Vital Signs:
Vital Signs
Temp Pulse Resp BP Pulse Ox
97.6 F 94 16 159/80 96
12/07/24 07:55 12/07/24 08:02 12/07/24 08:02 12/07/24 07:55 12/07/24 08:02
Cardiovascular:: Regular rate and rhythm
Respiratory:: Bilateral: Coarse
Lung Excursion:: Normal
Abdomen:: Nontender, Soft and Tender (PEG)
Bowel Sounds:: Decreased
Extremity Edema:: None: Bilateral:
Olea Catheter: Yes
[2024-12-07 11:57] LABS: Glucose - Point of Care 135 mg/dl (70-99)
--- NOTE | 2024-12-07 13:05 | W.PN.PUL3 ---
Today's Communication / Plan
-
- d/c Nebz, start Symbicort BID and Spiriva
- Taper prednisone, down to 10 mg for 3 more days then stop taking
- At discharge will need tripple therapy LAMA/LABA/ICS. Breztri or Trelegy can be good options. Alternatively can discharge on Symbicort and Spiriva.
- Outpatient follow up with [facility] Pulmonary
- Will sign off, please call as needed
Assessment
-
64-year-old smoking female with underlying suspected COPD, depression, anxiety, chronic pain, CVA, and previous lung cancer presented with increasing shortness of breath felt to have COPD exacerbation-pulmonary consulted for shortness of breath/COPD
exacerbation 11/27/2024
COPD-suspected gold stage IV with acute exacerbation
Bedside spirometry. 11/27/24-FEV1 720 mL-30%, 17% improvement postbronchodilator
Leukocytosis
Chronic hypercapnia-ABG 11/26/2024--53/65/7.39
Mild hyperglycemia
Mild hyponatremia
Conditions present prior to admission:
Cigarette smoker.
COPD.
History of lung cancer.
History of brain cancer.
Depression/anxiety.
Chronic pain.
History of CVA.
Seizure disorder..
Aortic regurgitation-moderate by echo
Plan
Respiratory decompensation consistent with underlying significant COPD with acute exacerbation--FEV1 30%
Patient does not follow direct support staff member, maintained on Spiriva and albuterol as needed and still currently smoking
Patient reports prior history of stage III lung cancer treated with chemotherapy and radiation and follows up with an oncologist in [facility], details unavailable for review
Patient requires admission for severe COPD exacerbation and respiratory failure
Remains on low rate supplemental oxygen- 2 L improved
No longer bronchospastic- but mild bilateral rhonchi noted
Continue nebulizer regimen while in the hospital: DuoNebs/Pulmicort.
Mucolytic's
Prednisone taper, decrease by 10 mg every 48 hours to off. Decreased to 30mg today
Incentive spirometry
Acapella-encouraged
s/p PEG placement. had post procedure hypotension and local bleeding requiring overnight stay in ICU.
Component of HF on this admission, proBNP 5580
CXR with bilateral effusions
Had been getting diuresis but held now
Cardiology following, last seen 11/30
Possible aspiration pneumonia, DHT placed
Cultures reviewed.
Unable to produce sputum
Empiric antibiotics if acute bacterial bronchitis or acute bacterial lower respiratory tree infection is suspected-ampicillin initiated-complete 7 days.
Afebrile, no leukocytosis resolved
Smoking cessation counseling ongoing
Nicotine patch
DVT prophylaxis-on Lovenox
GI prophylaxis recommended if on steroids for prolonged period-on pantoprazole
Would benefit from triple inhaler therapy such as Trelegy or Breztri at time of discharge
Outpatient pulmonary [id number], inhalers, pulmonary rehab, smoking cessation counseling, low-dose lung cancer screening CT, etc.
Pulm team will sign off
Diagnostic data:
Spirometry 11/27/24-FEV1 720 mL-30%, 17% improvement postbronchodilator.
Chest x-ray 11/28/24-small bilateral pleural effusions.
Chest x-ray 11/26/2024-mild blunting lateral and posterior costophrenic angles bilaterally suggesting small bilateral pleural effusions
Chest x-ray 06/30/2013-NAD
Echocardiogram 11/27/24-EF 59%, moderately dilated right ventricle, mild to moderate aortic valve regurgitation.
Total time spent on this consultation/encounter __45__ minutes which includes review of history, physical exam, medications, laboratory data, personal review of imaging, extensive review of outpatient records, discussion with care team and
respiratory therapy.
Subjective Data
-
Date of Service:
Date of Service: December 07, 2024
Chief Complaint: Pulmonary Follow Up and Dyspnea Follow Up
Subjective:
Comfortably lying in bed.
Review of Systems
Genitourinary: Other (No new symptoms reported)
Objective Data
Data Reviewed
Vital Signs / I&O / Oxygen:
Vital Signs
Temp Pulse Resp BP Pulse Ox
97.6 F 89 14 159/80 93
12/07/24 07:55 12/07/24 11:16 12/07/24 11:16 12/07/24 07:55 12/07/24 11:16
Intake and Output
12/06/24 12/07/24 12/08/24
06:59 06:59 06:59
Intake Total 1960 / 1960 210 / 210
Output Total 700 / 700 1000 / 1000
Balance 1260 / 1260 -790 / -790
SaO2 93
Nasal Cannula flow liters per 2
minute
Physical Exam
General: Respiratory Distress (n), Comfortable and Other ( cachectic and chronically ill-appearing)
HEENT: Normocephalic, Anicteric, Moist Mucous Membranes and Other (Whisper noted)
Cardiovascular: Regular Rhythm
Respiratory: Wheeze (n), Crackles (n), Rhonchi (bilateral ronchi at bases), Non-Labored Respirations, Accessory Resp Muscle Use (n) and Stridor (n)
GI: Soft, Non Distended and Non Tender
Neurology: Awake, Alert, Oriented and No Motor Deficits
Skin: Warm, Good Color, Cyanosis (n), Jaundice and Rash (n)
Labs/Micro/Reports
Lab Data
12/07/24 06:11
Laboratory Results
12/06/24
14:35
PT 14.3
INR 1.08
[2024-12-07] MEDS: SPIRIVA RESPIMAT 2.5 MCG INH (15:15)
[2024-12-07 15:55] VITALS: BP 118/72
[2024-12-07] MEDS: LOVENOX 40 MG SC (17:13)
[2024-12-07] MEDS: ROBITUSSIN 100 MG TUBE ×2 (17:13→21:00)
[2024-12-07] MEDS: LIPITOR 40 MG TUBE (17:13)
[2024-12-07 17:23] LABS: Hematocrit 20.6 % (37.0-47.0); Hemoglobin 7.0 g/dL (12.0-16.0); Mean Corp Hgb Conc. 34.0 g/dL (33.0-37.0); Mean Corpuscular Volume 86.2 fL (81.0-99.0); Platelet Count 152 10^3/uL (130-400); Red Cell Dist. Width 16.2 % (11.5-14.5)
[2024-12-07 17:41] LABS: Blood Urea Nitrogen 28 mg/dl (7-17); Calcium 8.4 mg/dl (8.4-10.2); Carbon Dioxide 31 mmol/L (22-30); Chloride 94 mmol/L (98-107); Estimated Creatinine Clearance 53 ml/min; Glucose 123 mg/dl (70-99); Magnesium 2.1 mg/dl (1.6-2.3); Potassium 4.4 mmol/L (3.5-5.1); Sodium 125 mmol/L (135-145); eGFR > 60.00
[2024-12-07 18:10] LABS: Glucose - Point of Care 109 mg/dl (70-99)
[2024-12-07] MEDS: SYMBICORT 160/4.5 MCG INHALER 2 PUFF INH (19:12)
[2024-12-07 19:18] VITALS: BP 128/66
[2024-12-07 19:36] VITALS: BP 140/73
[2024-12-07] MEDS: FLOMAX 0.4 MG TUBE (20:58)
[2024-12-07] MEDS: DESYREL 150 MG TUBE (20:59)
[2024-12-07] MEDS: ZANAFLEX 4 MG TUBE (20:59)
[2024-12-07] MEDS: SENNA SYRUP TUBE (21:05)
[2024-12-07 21:53] VITALS: BP 113/72
[2024-12-07 23:14] VITALS: BP 117/64
[2024-12-08] MEDS: ROXICODONE ORAL SOLUTION 7.5 MG TUBE ×4 (00:03→18:42)
[2024-12-08] MEDS: DEPAKENE 250 MG TUBE ×4 (00:04→16:19)
[2024-12-08 00:25] LABS: Glucose - Point of Care 124 mg/dl (70-99)
[2024-12-08 00:49] LABS: Hematocrit 25.4 % (37.0-47.0); Hemoglobin 8.5 g/dL (12.0-16.0)
--- NOTE | 2024-12-08 01:15 | PTCARENOTE ---
1 unit of PRBCs given per order without difficulty. H&H ordered and drawn two hours after transfusion finished. Repeat hgb 8.5. Per MANGA ARTIST, primary MD will decide if patient needs second ordered unit in AM.
[2024-12-08] MEDS: TYLENOL ORAL SOLUTION 650 MG TUBE (03:33)
[2024-12-08 06:00] VITALS: BMI 14.6
[2024-12-08 06:58] LABS: Glucose - Point of Care 130 mg/dl (70-99)
[2024-12-08 07:00] VITALS: BP 147/82
--- NOTE | 2024-12-08 07:20 | W.PN.HOSP.TC ---
Today's Communication/Plan
-
- monitor electrolyes
- monitor for refeeding
- f/u nephrology recommendations
- touch base with case management
Assessment / Plan
Assessment / Plan
A 64-year-old female with past medical history significant for depression/anxiety, chronic pain, seizure, CVA (recent X2 TIA), Hx lung cancer and Hx brain cancer who presented with a PMHX of Cough and SOB
She was admitted for Hypoxic respiratory failure with Acute COPD Excacerbation, Pressure sores, Dysphasia and dysphonia with PEM on PEG tube
Assessment and plan
#Severe protein calorie malnutrition
-Muscle wasting
- NPO
- PEG placed Day 3 12/05-
-Hgb stable at 8.3
- Monitor CBC
- tube feeds
-Monitor for refeeding syndrome
-Daily CMP mag phos
#Hyponatremia, consistent with SIADH,
-Na 126
- nephrology following, follow-up recommendations
# Leukocytosis
- WBC has increased but afebrile
- trend CBC
# Aspiration Pneumonia
- CXR RML/RLQ opacity; bilateral pleural effusions
- however, the aspiration pneumonia was noted to be on prior admissions.
- BCx negative; repeat CXR appears unchanged from prior
- speech modified barium swallow = high aspiration risk
# Dysphagia, pharyngeal dysfunction
- likely attributed to prior radiation therapy, chronic smoking
-Continue with Speech therapy
# Hypertension
-Bp improved 140s/80s
-Continue Losartan
# Acute COPD exacerbation due to continued tobacco use
-C/O Cough
-Monitor for change
- She is on albuterol/ipratropium, inhaled budesonide
- Deltasone 10mg today for 3 more days
- 1ppd since she was a child
- Has nicotine patch.
# Acute hypoxic respiratory failure
- Initial O2sat 66%
- Supplemental O2 for targeting 88-92%
- On 2L, O2 sat 90%
# Acute urinary retention
-Now on Olea
# Nonischemic myocardial injury
- Elevated troponin but nonspecific EKG changes
- most likely in the setting of acute exacerbation of COPD leading to demand stress.
- troponin has decreased
- Echo on 11/27: LVEF 59%; RV dilated, Mild to moderate AR, mild TR.
- Continue atorvastatin 40mg, aspirin 81mg PO
# Likely Stage 2 pressure sacral deep tissue injury that was present on admission
- this is likely stage 2 because wound care note on 12/04 states that it is stage 2, please follow-up with wound care
- Consult wound care - is following
- Barrier cream/foam
- Change position and use cushion to relieve pressure
#DVT PPX- Levonox
#Dispo- f/u with case management
Anticipated Discharge: > 48 hours
Subjective/Interval History
-
Date of Service: December 08, 2024
64 yo F came in for AECOPD, severe cachectic, and pharyngeal dysfunction (hx of lung cancer and brain cancer, still actively smokes). HER COPD exacerbation has resovled, however, she had a PEG tube placed sunday because dobhoff x2 she remvoed.
Over the weekend, hemoglobin drop to 7.0, received a unit yesterdy PM. this am Hgb 8.3
Subejctively, doing well.
Objective Data
-
Labs:
Laboratory Results
12/08/24 12/08/24 12/08/24
00:38 05:00 06:00
WBC Pending
Hgb 8.5 L D Pending
Hct 25.4 L Pending
Plt Count Pending
Sodium Pending
Potassium Pending
Chloride Pending
Carbon Dioxide Pending
BUN Pending
Creatinine Pending
Glucose Pending
Calcium Pending
Hgb 8.3
WBC 16.1
Na 126
K 4.1
Mag 1.9
Phos 2.3
Vital Signs:
Vital Signs
Temp Pulse Resp BP Pulse Ox
97.8 F 86 18 117/64 92
12/07/24 23:14 12/07/24 23:14 12/07/24 23:14 12/07/24 23:14 12/07/24 23:14
afebrile
I&O
12/07/24 12/08/24 12/09/24
06:59 06:59 06:59
Intake Total 210 / 210 910 / 910
Output Total 1000 / 1000 725 / 725
Balance -790 / -790 185 / 185
Review of Systems
-
History Source: Patient
Constitutional: Reports Fatigue
EENT: Reports Other (soft voice)
Respiratory: Reports Cough and Other (wet cough)
Cardiac: Reports No Symptoms
Abdomen/GI: Reports Other
Physical Exam
-
General: Cachectic
Respiratory: Clear to Auscultation (Transmitted sounds. On INO2 2L)
Cardiac: Regular Rhythm and S1/S2
GI: Soft, Nondistended, Flat and Peg Tube (Wound dressing clean and dry, no active bleeding, )
Musculoskeletal: No Edema
Skin: Warm and Dry
Neuro: Awake
Psych: Calm
[2024-12-08] MEDS: SYMBICORT 160/4.5 MCG INHALER 2 PUFF INH ×2 (07:49→19:17)
[2024-12-08] MEDS: SPIRIVA RESPIMAT 2.5 MCG 2 PUFF INH (07:49)
[2024-12-08] MEDS: XANAX 0.5 MG TUBE ×3 (07:58→21:09)
[2024-12-08] MEDS: ROBITUSSIN 100 MG TUBE ×4 (07:58→21:10)
[2024-12-08] MEDS: CYMBALTA DELAYED RELEASE 60 MG TUBE (07:58)
[2024-12-08] MEDS: VITAMIN B1 100 MG TUBE (07:58)
[2024-12-08] MEDS: NICODERM TRANSDERMAL 14 MG TRANSDERM (07:58)
[2024-12-08 07:59] LABS: Glucose - Point of Care 134 mg/dl (70-99)
[2024-12-08] MEDS: MIRALAX 17 GRAMS TUBE (07:59)
[2024-12-08] MEDS: LOW STRENGTH ASPIRIN 81 MG TUBE (08:00)
[2024-12-08] MEDS: DELTASONE 10 MG TUBE (08:00)
[2024-12-08] MEDS: CYMBALTA DELAYED RELEASE 20 MG TUBE (08:00)
[2024-12-08] MEDS: PREVACID 30 MG TUBE (08:00)
[2024-12-08] MEDS: COZAAR 100 MG TUBE (08:00)
[2024-12-08] MEDS: LYRICA 50 MG TUBE ×2 (08:00→21:09)
[2024-12-08 09:29] LABS: Hematocrit 24.2 % (37.0-47.0); Hemoglobin 8.3 g/dL (12.0-16.0); Mean Corp Hgb Conc. 34.3 g/dL (33.0-37.0); Mean Corpuscular Volume 83.7 fL (81.0-99.0); Platelet Count 157 10^3/uL (130-400); Red Cell Dist. Width 18.8 % (11.5-14.5)
[2024-12-08 10:02] LABS: Blood Urea Nitrogen 18 mg/dl (7-17); Calcium 7.7 mg/dl (8.4-10.2); Carbon Dioxide 33 mmol/L (22-30); Chloride 91 mmol/L (98-107); Estimated Creatinine Clearance 58 ml/min; Glucose 108 mg/dl (70-99); Magnesium 1.9 mg/dl (1.6-2.3); Potassium 4.1 mmol/L (3.5-5.1); Sodium 126 mmol/L (135-145); eGFR > 60.00
[2024-12-08 12:03] LABS: Glucose - Point of Care 148 mg/dl (70-99)
--- NOTE | 2024-12-08 13:10 | W.PN.NEPH.PH ---
Today's Communication / Plan
-
3% saline
Assessment/Plan
-
Impression:
Hyponatremia (urine osm 531)
Acute hypoxic respiratory failure with underlying COPD exacerbation and/or aspiration pneumonia
Dysphagia status post PEG placement on 12/05/2024 with postoperative bleeding and anemia
Urinary retention
Sacral decub
Hypertension
Seizure disorder
Nonischemic myocardial injury
Hypoalbuminemia
History of brain cancer status postresection
History of lung cancer (left upper lobe resection in 2018 with prior radiation and chemo and recurrence with mets to brain
Chronic pain with chronic narcotic use
Plan:
Hyponatremia:
- Likely consistent with SIADH given elevated urine osmolality ( urine osm 541) with history of seizure disorder(on divalproex) SSRI administration in ,malignancy, and pain,
- Olea now in with 1 L out
- Maintain losartan for hypertension control
- Maintain accurate I's and O's
Restart 3% saline
-
-
Date of Service: December 08, 2024
CC / HPI / ROS
-
Chief Complaint:
Hyponatremia
History of Present Illness:
Serum sodium stable at 127
On tube feeding with 10 cc/h fluid water flush
Blood pressure stable on losartan
Review of Systems:
Significant allover body pain
Nonoliguric via Olea
No fever
Weight down
Labs
-
Labs:
WBC 16.1 10^3/uL (4.8-10.8) H 12/08/24 08:03
RBC 2.89 10^6/uL (4.20-5.40) L 12/08/24 08:03
Hgb 8.3 g/dL (12.0-16.0) L 12/08/24 08:03
Hct 24.2 % (37.0-47.0) L 12/08/24 08:03
Plt Count 157 10^3/uL (130-400) 12/08/24 08:03
Sodium 126 mmol/L (135-145) L 12/08/24 08:03
Potassium 4.1 mmol/L (3.5-5.1) 12/08/24 08:03
Chloride 91 mmol/L (98-107) L 12/08/24 08:03
Carbon Dioxide 33 mmol/L (22-30) H 12/08/24 08:03
BUN 18 mg/dl (7-17) H 12/08/24 08:03
Creatinine 0.3 mg/dL (0.6-1.0) L 12/08/24 08:03
eGFR > 60.00 12/08/24 08:03
Glucose 108 mg/dl (70-99) H 12/08/24 08:03
Calcium 7.7 mg/dl (8.4-10.2) L 12/08/24 08:03
Phosphorus 2.3 mg/dl (2.5-4.5) L 12/08/24 08:03
Kxm-H-Bsutqwexdlo Pept 951 pg/ml 12/03/24 07:24
Albumin 3.0 g/dl (3.5-5.0) L 12/06/24 06:20
Physical Exam
-
Vital Signs:
Vital Signs
Temp Pulse Resp BP Pulse Ox
98.5 F 92 16 147/82 93
12/08/24 07:00 12/08/24 07:50 12/08/24 07:50 12/08/24 07:00 12/08/24 10:32
Cardiovascular:: Regular rate and rhythm
Respiratory:: Bilateral: Coarse
Lung Excursion:: Normal
Abdomen:: Nontender, Soft and Tender (PEG)
Bowel Sounds:: Decreased
Extremity Edema:: None: Bilateral:
Olea Catheter: Yes
[2024-12-08] MEDS: SODIUM CHLORIDE 3% 250 IV (13:37)
[2024-12-08 15:00] VITALS: BP 148/90
[2024-12-08 15:19] VITALS: BP 148/90; PULSE 101; O2SAT 90
[2024-12-08] MEDS: LOVENOX 40 MG SC (16:19)
[2024-12-08] MEDS: LIPITOR 40 MG TUBE (16:19)
[2024-12-08 16:48] LABS: Glucose - Point of Care 145 mg/dl (70-99)
[2024-12-08] MEDS: SENNA SYRUP TUBE (21:08)
[2024-12-08] MEDS: FLOMAX 0.4 MG TUBE (21:09)
[2024-12-08] MEDS: DESYREL 150 MG TUBE (21:09)
[2024-12-08] MEDS: ZANAFLEX 4 MG TUBE (21:09)
[2024-12-08 21:10] LABS: Glucose - Point of Care 141 mg/dl (70-99)
[2024-12-08 23:37] VITALS: BP 141/81
[2024-12-09] MEDS: DEPAKENE 250 MG TUBE ×5 (00:38→23:44)
[2024-12-09] MEDS: ROXICODONE ORAL SOLUTION 7.5 MG TUBE ×3 (00:46→21:51)
[2024-12-09 06:00] VITALS: BMI 14.8
[2024-12-09 07:00] VITALS: BP 162/89
[2024-12-09 07:00] LABS: Glucose - Point of Care 138 mg/dl (70-99)
--- NOTE | 2024-12-09 07:09 | W.PN.HOSP.TC ---
Addendum entered and electronically signed by Kieran Bernstein DO 12/09/24 11:15:
Lam removed, will follow up PVR. If stable can DC without lam, if retention recurs will discharge with lam catheter and urology follow-up.
Original Note:
Today's Communication/Plan
-
- replete phosphorus
- monitor BMP/Mg/Phos
- continue tube feeding
- f/u nephrology recommendations
Assessment / Plan
Assessment / Plan
A 64-year-old female with past medical history significant for depression/anxiety, chronic pain, seizure, CVA (recent X2 TIA), Hx lung cancer and Hx brain cancer who presented with a PMHX of Cough and SOB
She was admitted for Hypoxic respiratory failure with Acute COPD Excacerbation, Pressure sores, Dysphasia and dysphonia with PEM on PEG tube
Assessment and plan
#Severe protein calorie malnutrition
-Muscle wasting
- NPO
- PEG placed 12/05- day4
-Hgb stable at 9.1
- Monitor CBC
- tube feeds
-Monitor for refeeding syndrome
-Daily BMP mag phos
- Replete phosphorus today
#Hyponatremia, consistent with SIADH,
-Na+ now 130, Urine osmolality 531
- received hypertonic saline per nephrology
- could be from SNRI or lung cancer recurrence, will require follow-up outpatient
- nephrology following, follow-up recommendations
# Leukocytosis
- WBC has increased to 17 but afebrile
- trend CBC
# Aspiration Pneumonia
- CXR RML/RLQ opacity; bilateral pleural effusions
- however, the aspiration pneumonia was noted to be on prior admissions.
- BCx negative; repeat CXR appears unchanged from prior
- speech modified barium swallow = high aspiration risk
# Dysphagia, pharyngeal dysfunction
- likely attributed to prior radiation therapy, chronic smoking
-Continue with Speech therapy
# Hypertension
-Bp 160s/90s
-Continue Losartan
# Acute COPD exacerbation due to continued tobacco use
-C/O Cough
-Monitor for change
- She is on albuterol/ipratropium, inhaled budesonide
- Deltasone 10mg today for 3 more days
- 1ppd since she was a child
- Has nicotine patch.
# Acute hypoxic respiratory failure
- Initial O2sat 66%
- Supplemental O2 for targeting 88-92%
- On 2L, O2 sat 93%
# Acute urinary retention
- Lam removed this morning
- will need outpatient follow-up
# Nonischemic myocardial injury
- Elevated troponin but nonspecific EKG changes
- most likely in the setting of acute exacerbation of COPD leading to demand stress.
- troponin has decreased
- Echo on 11/27: LVEF 59%; RV dilated, Mild to moderate AR, mild TR.
- Continue atorvastatin 40mg, aspirin 81mg PO
# Likely Stage 2 pressure sacral deep tissue injury that was present on admission
- this is likely stage 2 because wound care note on 12/04 states that it is stage 2, please follow-up with wound care
- Consult wound care - is following
- Barrier cream/foam
- Change position and use cushion to relieve pressure
DVT PPX- Levonox
Diet - Jevity 1.5 with PEG tube
Dispo- f/u with case management
Anticipated Discharge: 24 - 48 hours
Subjective/Interval History
-
Date of Service: December 09, 2024
feels okay this morning
lam removed this morning
receiving tube feeds
Objective Data
-
Labs:
Laboratory Results
12/09/24
06:00
WBC Pending
Hgb Pending
Hct Pending
Plt Count Pending
Sodium Pending
Potassium Pending
Chloride Pending
Carbon Dioxide Pending
BUN Pending
Creatinine Pending
Glucose Pending
Calcium Pending
WBC 17 from 16.1
Hgb 9.1
K 3.8
Phos 1.8
Mg 2.0
Vital Signs:
Vital Signs
Temp Pulse Resp BP Pulse Ox
97.9 F 95 18 141/81 93
12/08/24 23:37 12/08/24 23:37 12/08/24 23:37 12/08/24 23:37 12/09/24 02:36
I&O
12/08/24 12/09/24 12/10/24
06:59 06:59 06:59
Intake Total 1845 / 1845
Output Total 1725 / 1725 450 / 450
Balance 120 / 120 -450 / -450
Review of Systems
-
History Source: Patient
Constitutional: Reports No Symptoms
Respiratory: Reports Cough
Cardiac: Reports No Symptoms
Abdomen/GI: Reports No Symptoms
Genitourinary: Reports No Symptoms
Musculoskeletal: Reports No Symptoms
Skin: Reports No Symptoms
Neuro: Reports No Symptoms
Physical Exam
-
General: Cachectic
HEENT: Atraumatic
Respiratory: Clear to Auscultation
Cardiac: Regular Rhythm
GI: Soft, Nondistended, Flat and Peg Tube (no active bleeding)
Musculoskeletal: No Edema
Skin: Warm and Dry
Neuro: Awake
Psych: Calm
[2024-12-09 08:09] LABS: Hematocrit 27.1 % (37.0-47.0); Hemoglobin 9.1 g/dL (12.0-16.0); Mean Corp Hgb Conc. 33.6 g/dL (33.0-37.0); Mean Corpuscular Volume 85.2 fL (81.0-99.0); Platelet Count 215 10^3/uL (130-400); Red Cell Dist. Width 18.4 % (11.5-14.5)
[2024-12-09] MEDS: ROBITUSSIN 100 MG TUBE ×4 (08:21→21:50)
[2024-12-09] MEDS: MIRALAX 17 GRAMS TUBE (08:22)
[2024-12-09] MEDS: NICODERM TRANSDERMAL TRANSDERM (08:22)
[2024-12-09] MEDS: COZAAR 100 MG TUBE (08:23)
[2024-12-09] MEDS: LOW STRENGTH ASPIRIN 81 MG TUBE (08:23)
[2024-12-09] MEDS: XANAX 0.5 MG TUBE ×3 (08:23→21:47)
[2024-12-09] MEDS: DELTASONE 10 MG TUBE (08:23)
[2024-12-09] MEDS: LYRICA 50 MG TUBE ×2 (08:23→20:58)
[2024-12-09] MEDS: PREVACID 30 MG TUBE (08:23)
[2024-12-09] MEDS: VITAMIN B1 100 MG TUBE (08:23)
[2024-12-09 08:24] LABS: Blood Urea Nitrogen 16 mg/dl (7-17); Calcium 8.4 mg/dl (8.4-10.2); Carbon Dioxide 34 mmol/L (22-30); Chloride 91 mmol/L (98-107); Estimated Creatinine Clearance 59 ml/min; Glucose 117 mg/dl (70-99); Potassium 3.8 mmol/L (3.5-5.1); Sodium 130 mmol/L (135-145); eGFR > 60.00
[2024-12-09] MEDS: FLUSH (NSS) 1 FLUSH IV ×2 (08:25→12:10)
[2024-12-09 08:35] LABS: Magnesium 2.0 mg/dl (1.6-2.3)
--- NOTE | 2024-12-09 11:05 | PTOTSP ---
Speech Language Pathology
Pt seen for dysphagia tx. Initially stated she did not want to participate, as the exercises were 'not enjoyable.' Discussed reason for exercises and need for intensive dysphagia tx if any improvement to be made. Pt verbalized understanding and
was agreeable to therapy. Pt did not complete any swallowing exercises on own. Last time she agreed to work with SPORTS CENTRE MANAGER was on 12/04 (refused 12/05 and 12/08). She completed 3 sets of 10 swallows with encouragement. Also completed 10 second hold for
chin tuck against resistance (CTAR) x10 with use of rolled towel. Minimal tuck noted.
Discussed need for frequent completion of exercises. Pt verbalized understanding; however, participation directly with SPOR[employer] CENTRE MANAGER has been limited and completion on own and has been absent. Prognosis for any improvement is poor given minimal
participation/motivation.
Recommend:
(1) Consider ENT consult to assess integrity of vocal folds in setting of prolonged progressive dysphonia/aphonia
(2) NPO
(3) Oral care 4/day with suctioning as needed
(4) Meds via PEG
(5) Allow sparing ice chips post oral care given supervision per Aspiration Risk Hydration Protocol (ARHP). Remind pt to complete effortful swallow exercise with use of ice chips
(6) SP[employer] CENTRE MANAGER to continue to follow
[2024-12-09 11:40] LABS: Glucose - Point of Care 186 mg/dl (70-99)
[2024-12-09] MEDS: SYMBICORT 160/4.5 MCG INHALER INH (11:54)
[2024-12-09] MEDS: SPIRIVA RESPIMAT 2.5 MCG INH (11:54)
[2024-12-09] MEDS: POTASSIUM PHOSPHATE 259.0909 MEQ IV (12:10)
[2024-12-09 13:00] VITALS: BP 146/93
--- NOTE | 2024-12-09 13:23 | W.PN.NEPH.PH ---
Today's Communication / Plan
-
Labs
Assessment/Plan
-
Impression:
Hyponatremia (urine osm 531)
Acute hypoxic respiratory failure with underlying COPD exacerbation and/or aspiration pneumonia
Dysphagia status post PEG placement on 12/05/2024 with postoperative bleeding and anemia
Urinary retention
Sacral decub
Hypertension
Seizure disorder
Nonischemic myocardial injury
Hypoalbuminemia
History of brain cancer status postresection
History of lung cancer (left upper lobe resection in 2018 with prior radiation and chemo and recurrence with mets to brain
Chronic pain with chronic narcotic use
Plan:
Hyponatremia:
- Likely consistent with SIADH given elevated urine osmolality ( urine osm 541) with history of seizure disorder(on divalproex) SSRI administration in ,malignancy, and pain,
- Olea now in with 1 L out
- Maintain losartan for hypertension control
- Maintain accurate I's and O's
Sodium improved 130 with 3% saline overnight
Limit free water
Increase protein diet
A.m. labs
-
-
Date of Service: December 09, 2024
CC / HPI / ROS
-
Chief Complaint:
Hyponatremia
History of Present Illness:
Serum sodium stable at 127
On tube feeding with 10 cc/h fluid water flush
Blood pressure stable on losartan
Review of Systems:
Significant allover body pain
Nonoliguric via Olea
No fever
Weight down
Labs
-
Labs:
WBC 17.0 10^3/uL (4.8-10.8) H 12/09/24 06:00
RBC 3.18 10^6/uL (4.20-5.40) L 12/09/24 06:00
Hgb 9.1 g/dL (12.0-16.0) L 12/09/24 06:00
Hct 27.1 % (37.0-47.0) L 12/09/24 06:00
Plt Count 215 10^3/uL (130-400) D 12/09/24 06:00
Sodium 130 mmol/L (135-145) L 12/09/24 06:00
Potassium 3.8 mmol/L (3.5-5.1) 12/09/24 06:00
Chloride 91 mmol/L (98-107) L 12/09/24 06:00
Carbon Dioxide 34 mmol/L (22-30) H 12/09/24 06:00
BUN 16 mg/dl (7-17) 12/09/24 06:00
Creatinine 0.3 mg/dL (0.6-1.0) L 12/09/24 06:00
eGFR > 60.00 12/09/24 06:00
Glucose 117 mg/dl (70-99) H 12/09/24 06:00
Calcium 8.4 mg/dl (8.4-10.2) 12/09/24 06:00
Phosphorus 1.8 mg/dl (2.5-4.5) L 12/09/24 06:00
Fys-B-Wsjfxvhrdtm Pept 951 pg/ml 12/03/24 07:24
Albumin 3.0 g/dl (3.5-5.0) L 12/06/24 06:20
Physical Exam
-
Vital Signs:
Vital Signs
Temp Pulse Resp BP Pulse Ox
98.1 F 106 20 162/89 93
12/09/24 07:00 12/09/24 08:23 12/09/24 07:00 12/09/24 08:23 12/09/24 08:21
[2024-12-09 14:25] VITALS: BP 158/99; PULSE 98; O2SAT 90
[2024-12-09 14:30] VITALS: BP 158/99; PULSE 98; O2SAT 90
[2024-12-09 15:00] VITALS: BP 146/93
--- NOTE | 2024-12-09 16:13 | PTCARENOTE ---
Pt awake and alert, oriented x3; forgetful; sl anxious at times. LEVY; OOB to chair/bedside commode with assist x1; pt very weak. VSS. Maintained on nc 2 lpm- pulse ox 91%, pt denies SOB; has (+) PIZARRO/tachypnea. Abd soft, sl rounded, NPO
maintained. Paulette PEG tube feeding of Jevity 1.5 @ 45 ml/hr with 10 ml/hr flush. Pt DTV 2 19:30 (after earlier straight-cath). Resting in bed at present, no c/o. Will continue to monitor.
[2024-12-09 16:37] LABS: Glucose - Point of Care 110 mg/dl (70-99)
--- NOTE | 2024-12-09 16:50 | CM ---
Pt and sister requested [facility] . Contacted [facility] . She requested financial filled out before accepting.
Sister Kaitlin given [facility] number and she said she will contact.
Oxygen 2 liter NC 93%.
Jevity 1.5 via Peg Tube.
PLAN Locate SNF set up TF for SNF
[2024-12-09] MEDS: LOVENOX 40 MG SC (17:24)
[2024-12-09] MEDS: LIPITOR 40 MG TUBE (17:24)
[2024-12-09] MEDS: SYMBICORT 160/4.5 MCG INHALER 2 PUFF INH (19:20)
[2024-12-09] MEDS: SENNA SYRUP TUBE (21:03)
[2024-12-09 21:36] LABS: Glucose - Point of Care 102 mg/dl (70-99)
[2024-12-09] MEDS: DESYREL 150 MG TUBE (21:47)
[2024-12-09] MEDS: ZANAFLEX 4 MG TUBE (21:49)
[2024-12-09] MEDS: FLOMAX 0.4 MG TUBE (21:49)
[2024-12-10] VITALS: BP 168/87
--- NOTE | 2024-12-10 02:59 | PTCARENOTE ---
Pt attempted to void unsuccessful,bladder scanned for >500,informed CONTRACT ACCOUNTANT that this is the 3RD time,order placed to insert lam due to retention.Pt had a #16 LAM inserted with ease,immediate returm gerald
[2024-12-10] MEDS: ROXICODONE ORAL SOLUTION 7.5 MG TUBE ×3 (05:06→18:12)
[2024-12-10] MEDS: DEPAKENE 250 MG TUBE ×3 (05:09→17:01)
--- NOTE | 2024-12-10 05:18 | W.PN.UPDATE ---
Update Note
Progress Note Update
Patient w/continued urinary retention, previously straight cathed twice. Bladder scanned for > 500 mls. Order placed for lam catheter. Urology consult placed.
[2024-12-10 05:26] VITALS: BMI 14.8
[2024-12-10 06:58] LABS: Glucose - Point of Care 149 mg/dl (70-99)
[2024-12-10 07:00] VITALS: BP 139/81
--- NOTE | 2024-12-10 07:09 | W.PN.HOSP.TC ---
Today's Communication/Plan
-
- f/u case management
- monitor BMP/Mg/Phos
- continue tube feeding
Assessment / Plan
Assessment / Plan
A 64-year-old female with past medical history significant for depression/anxiety, chronic pain, seizure, CVA (recent X2 TIA), Hx lung cancer and Hx brain cancer who presented with a PMHX of Cough and SOB
She was admitted for Hypoxic respiratory failure with Acute COPD Excacerbation, Pressure sores, Dysphasia and dysphonia with PEM on PEG tube
Assessment and plan
#Severe protein calorie malnutrition
-Muscle wasting
- NPO
- PEG placed 12/05- day5
-Hgb stable at 8.9
- Monitor CBC
- tube feeds
- electrolytes within normal limits
-Daily BMP mag phos
#Hyponatremia, consistent with SIADH,
-Na+ now 127 from 130 yesterday, Urine osmolality 531
- received hypertonic saline per nephrology
- could be from SNRI or lung cancer recurrence, will require follow-up outpatient
- nephrology following, follow-up recommendations
# Leukocytosis
- WBC has come down to 11.7 from 17
- trend CBC
# Acute urinary retention
- lam placed this morning ~06:00
# Aspiration Pneumonia
- CXR RML/RLQ opacity; bilateral pleural effusions
- however, the aspiration pneumonia was noted to be on prior admissions.
- BCx negative; repeat CXR appears unchanged from prior
- speech modified barium swallow = high aspiration risk
# Dysphagia, pharyngeal dysfunction
- likely attributed to prior radiation therapy, chronic smoking
-Continue with Speech therapy
# Hypertension
-Bp 160s/90s
-Continue Losartan
# Acute COPD exacerbation due to continued tobacco use
-C/O Cough
-Monitor for change
- She is on albuterol/ipratropium, inhaled budesonide
- Deltasone taper complete today
- 1ppd since she was a child
- Has nicotine patch.
# Acute hypoxic respiratory failure
- Initial O2sat 66%
- Supplemental O2 for targeting 88-92%
- On 2L, O2 sat 93%
# Nonischemic myocardial injury
- Elevated troponin but nonspecific EKG changes
- most likely in the setting of acute exacerbation of COPD leading to demand stress.
- troponin has decreased
- Echo on 11/27: LVEF 59%; RV dilated, Mild to moderate AR, mild TR.
- Continue atorvastatin 40mg, aspirin 81mg PO
# Likely Stage 2 pressure sacral deep tissue injury that was present on admission
- this is likely stage 2 because wound care note on 12/04 states that it is stage 2, please follow-up with wound care
- Consult wound care - is following
- Barrier cream/foam
- Change position and use cushion to relieve pressure
DVT PPX- Levonox
Diet - Jevity 1.5 with PEG tube
Dispo- f/u with case management, she selected [facility]
Anticipated Discharge: 24 - 48 hours
Subjective/Interval History
-
Date of Service: December 10, 2024
feels really well, catheter placed back (clear urine)
Objective Data
-
Labs:
Laboratory Results
12/10/24
05:52
WBC Pending
Hgb Pending
Hct Pending
Plt Count Pending
Sodium Pending
Potassium Pending
Chloride Pending
Carbon Dioxide Pending
BUN Pending
Creatinine Pending
Glucose Pending
Calcium Pending
WBC came down 11.9
Na+ 127
K+ 3.9
Phos 3.0
Mg 2.0
Vital Signs:
Vital Signs
Temp Pulse Resp BP Pulse Ox
97.9 F 109 18 168/87 93
12/10/24 00:00 12/10/24 00:00 12/10/24 00:00 12/10/24 00:00 12/10/24 02:52
I&O
12/09/24 12/10/24 12/11/24
06:59 06:59 06:59
Intake Total 1969 / 1969
Output Total 450 / 450 2550 / 2550
Balance -450 / -450 -580 / -580
Review of Systems
-
History Source: Patient
Constitutional: Reports No Symptoms
Respiratory: Reports Cough
Cardiac: Reports No Symptoms
Abdomen/GI: Reports No Symptoms
Genitourinary: Reports No Symptoms
Musculoskeletal: Reports No Symptoms
Skin: Reports No Symptoms
Neuro: Reports No Symptoms
Physical Exam
-
General: Cachectic
HEENT: Atraumatic
Respiratory: Clear to Auscultation
Cardiac: Regular Rhythm
GI: Soft, Nondistended, Flat and Peg Tube (no active bleeding)
Genito-urinary: Other (catheter)
Musculoskeletal: No Edema
Skin: Warm and Dry
Neuro: Awake
Psych: Calm
[2024-12-10 07:27] LABS: Hematocrit 26.7 % (37.0-47.0); Hemoglobin 8.9 g/dL (12.0-16.0); Mean Corp Hgb Conc. 33.3 g/dL (33.0-37.0); Mean Corpuscular Volume 85.6 fL (81.0-99.0); Platelet Count 241 10^3/uL (130-400); Red Cell Dist. Width 18.2 % (11.5-14.5)
[2024-12-10] MEDS: SYMBICORT 160/4.5 MCG INHALER 2 PUFF INH ×2 (07:32→19:17)
[2024-12-10] MEDS: SPIRIVA RESPIMAT 2.5 MCG 2 PUFF INH (07:32)
[2024-12-10 08:09] LABS: Blood Urea Nitrogen 15 mg/dl (7-17); Calcium 8.6 mg/dl (8.4-10.2); Carbon Dioxide 36 mmol/L (22-30); Chloride 89 mmol/L (98-107); Estimated Creatinine Clearance 59 ml/min; Glucose 114 mg/dl (70-99); Magnesium 2.0 mg/dl (1.6-2.3); Potassium 3.9 mmol/L (3.5-5.1); Sodium 127 mmol/L (135-145); eGFR > 60.00
[2024-12-10] MEDS: LYRICA 50 MG TUBE ×2 (08:54→21:34)
[2024-12-10] MEDS: XANAX 0.5 MG TUBE ×3 (08:54→21:39)
[2024-12-10] MEDS: PREVACID 30 MG TUBE (08:55)
[2024-12-10] MEDS: COZAAR 100 MG TUBE (08:55)
[2024-12-10] MEDS: LOW STRENGTH ASPIRIN 81 MG TUBE (08:55)
[2024-12-10] MEDS: ROBITUSSIN 100 MG TUBE ×4 (08:55→21:39)
[2024-12-10] MEDS: DELTASONE 10 MG TUBE (08:55)
[2024-12-10] MEDS: VITAMIN B1 100 MG TUBE (08:56)
[2024-12-10] MEDS: NICODERM TRANSDERMAL 14 MG TRANSDERM (08:59)
[2024-12-10] MEDS: MIRALAX TUBE (08:59)
--- NOTE | 2024-12-10 09:15 | CONS.URO ---
Consultation
-
Date/Time Consultation Performed: 12/10/24 1505
Performing Provider: Domenic
Reason for Consultation: urinary retention
Medical History
History of Present Illness
64 yo female admitted on 11/26/2024 with exacerbation of COPD.
Olea placed today for ~ 600 ml retained urine.
Past Medical History
Past Medical History: Other (depression/anxiety, chronic pain, seizures, CVA, Hx lung cancer, brain cancer)
Past Surgical History: Other (brain cancer surgery)
Allergies/Home Medications
Allergies
Allergy/AdvReac Type Severity Reaction Status Date / Time
codeine Allergy Unknown Verified 11/26/24 12:57
Home Medications
�Medication �Instructions �Recorded �Confirmed �Type
albuterol sulfate 90 mcg/actuation 2 puff inhalation R Q6HPRN PRN sob 11/26/24 11/26/24 History
aerosol inhaler
alprazolam 0.5 mg tablet (Xanax) 0.5 mg PO QID Mental Health/Anxiety 11/26/24 11/26/24 History
divalproex 125 mg capsule,delayed 500 mg PO BID Neurological 11/26/24 11/26/24 History
release sprinkle Condition
duloxetine 20 mg capsule,delayed 20 mg PO DAILY with 60mg 11/26/24 11/26/24 History
release
duloxetine 60 mg capsule,delayed 60 mg PO DAILY Depression 11/26/24 11/26/24 History
release
megestrol 400 mg/10 mL (40 mg/mL) 200 mg PO DAILY Hormonal Agent 11/26/24 11/26/24 History
oral suspension
oxycodone 10 mg tablet 10 mg PO Q6HPRN PRN severe pain 11/26/24 11/26/24 History
pregabalin 50 mg capsule (Lyrica) 50 mg PO BID Neurological Condition 11/26/24 11/26/24 History
tizanidine 4 mg tablet 4 mg PO HS Muscle Spasms 11/26/24 11/26/24 History
trazodone 150 mg tablet 150 mg PO HS Sleep 11/26/24 11/26/24 History
Physical Exam
Vital Signs
Vital Signs
Temp Pulse Resp BP Pulse Ox
98.5 F 106 20 139/81 94
12/10/24 07:00 12/10/24 08:55 12/10/24 07:36 12/10/24 08:55 12/10/24 07:36
Lab / Testing Results
Laboratory Results
12/10/24 05:52
12/10/24 05:52
Physical Exam
cachectic adult female
Olea catheter draining yellow urine
Assessment / Plan
-
urinary retention due to severe deconditioning
rec: Olea for now; pt to f/u as an outpatient with Aby Paredes NP
--- NOTE | 2024-12-10 10:47 | CM ---
Addendum entered by Cynthia Callahan RN 12/10/24 15:10:
[facility] can accept patient tomorrow. MD notified ,Sister Kaitlin notified .Kaitlin will be visiting and requested to inform patient.and RN aware.
Medical nec form completed .
[facility]
report [phone]
fax [phone]
PLAN To [facility] .
Original Note:
Spoke with [facility] she is waiting for sister to return financial before she can accept patient .
As per MD patient is a max volume of Jevity 1.5 at 45 cc /hr.
Will provide dietary information to accepting SNF.
PLAN To Snf with Peg tube feedings
[2024-12-10 12:22] VITALS: BP 121/81
--- NOTE | 2024-12-10 14:12 | W.PN.NEPH.PH ---
Today's Communication / Plan
-
Observe
Follow BMP
Free water flush reduced to 5 cc per
Assessment/Plan
-
Impression:
Hyponatremia (urine osm 531)
Acute hypoxic respiratory failure with underlying COPD exacerbation and/or aspiration pneumonia
Dysphagia status post PEG placement on 12/05/2024 with postoperative bleeding and anemia
Urinary retention
Sacral decub
Hypertension
Seizure disorder
Nonischemic myocardial injury
Hypoalbuminemia
History of brain cancer status postresection
History of lung cancer (left upper lobe resection in 2018 with prior radiation and chemo and recurrence with mets to brain
Chronic pain with chronic narcotic use
Plan:
Hyponatremia:
-Sodium of 127 down from 130
-If sodium drops further we will provide hypertonic saline as she is n.p.o.
- Likely consistent with SIADH given elevated urine osmolality ( urine osm 541) with history of seizure disorder(on divalproex) SSRI administration in ,malignancy, and pain,
- Olea now in with 1 L out
HTN
- Maintain losartan for hypertension control
-
-
Date of Service: December 10, 2024
CC / HPI / ROS
-
Chief Complaint:
Hyponatremia
History of Present Illness:
Serum sodium down at 127
On tube feeding with 5 cc/h fluid water flush
Blood pressure stable on losartan
Review of Systems:
Significant allover body pain
Nonoliguric via Olea
No fever
Weight down
Labs
-
Labs:
WBC 11.9 10^3/uL (4.8-10.8) H 12/10/24 05:52
RBC 3.12 10^6/uL (4.20-5.40) L 12/10/24 05:52
Hgb 8.9 g/dL (12.0-16.0) L 12/10/24 05:52
Hct 26.7 % (37.0-47.0) L 12/10/24 05:52
Plt Count 241 10^3/uL (130-400) 12/10/24 05:52
Sodium 127 mmol/L (135-145) L 12/10/24 05:52
Potassium 3.9 mmol/L (3.5-5.1) 12/10/24 05:52
Chloride 89 mmol/L (98-107) L 12/10/24 05:52
Carbon Dioxide 36 mmol/L (22-30) H 12/10/24 05:52
BUN 15 mg/dl (7-17) 12/10/24 05:52
Creatinine 0.3 mg/dL (0.6-1.0) L 12/10/24 05:52
eGFR > 60.00 12/10/24 05:52
Glucose 114 mg/dl (70-99) H 12/10/24 05:52
Calcium 8.6 mg/dl (8.4-10.2) 12/10/24 05:52
Phosphorus 3.0 mg/dl (2.5-4.5) 12/10/24 05:52
Sqn-M-Fjjqokfrmwh Pept 951 pg/ml 12/03/24 07:24
Albumin 3.0 g/dl (3.5-5.0) L 12/06/24 06:20
Physical Exam
-
Vital Signs:
Vital Signs
Temp Pulse Resp BP Pulse Ox
97.6 F 97 16 121/81 94
12/10/24 12:22 12/10/24 12:22 12/10/24 12:22 12/10/24 12:22 12/10/24 12:22
Cardiovascular:: Regular rate and rhythm
Respiratory:: Bilateral: Coarse
Lung Excursion:: Normal
Abdomen:: Nontender and Soft
Bowel Sounds:: Normal
Extremity Edema:: None: Bilateral:
Olea Catheter: Yes
Other Findings::
gen: advanced cachexia
[2024-12-10 15:00] VITALS: BP 150/87
[2024-12-10 16:29] LABS: Glucose - Point of Care 130 mg/dl (70-99)
[2024-12-10] MEDS: LOVENOX 40 MG SC (17:00)
[2024-12-10] MEDS: LIPITOR 40 MG TUBE (17:01)
[2024-12-10] MEDS: DESYREL 150 MG TUBE (21:36)
[2024-12-10] MEDS: FLOMAX 0.4 MG TUBE (21:36)
[2024-12-10] MEDS: SENNA SYRUP TUBE (21:38)
[2024-12-10] MEDS: ZANAFLEX 4 MG TUBE (21:38)
[2024-12-10] MEDS: TYLENOL ORAL SOLUTION 650 MG TUBE (21:40)
[2024-12-10 23:36] VITALS: BP 133/74
[2024-12-10 23:51] LABS: Glucose - Point of Care 133 mg/dl (70-99)
[2024-12-11] MEDS: DEPAKENE 250 MG TUBE ×3 (00:42→11:51)
[2024-12-11] MEDS: ROXICODONE ORAL SOLUTION 7.5 MG TUBE ×2 (02:55→08:55)
[2024-12-11 06:00] VITALS: BMI 13.6
[2024-12-11 06:02] LABS: Glucose - Point of Care 140 mg/dl (70-99)
[2024-12-11 07:00] VITALS: BP 129/75
--- NOTE | 2024-12-11 07:08 | W.PN.HOSP.TC ---
Today's Communication/Plan
-
- discharge today
Assessment / Plan
Assessment / Plan
A 64-year-old female with past medical history significant for depression/anxiety, chronic pain, seizure, CVA (recent X2 TIA), Hx lung cancer and Hx brain cancer who presented with a PMHX of Cough and SOB
She was admitted for Hypoxic respiratory failure with Acute COPD Excacerbation, Pressure sores, Dysphasia and dysphonia with PEM on PEG tube
Assessment and plan
# Dysphagia, pharyngeal dysfunction
# Severe protein calorie malnutrition
# Aspiration Pneumonia
-Muscle wasting
- likely attributed to prior radiation therapy, chronic smoking
- PEG placed 12/05- day 6 today
-Continue with Speech therapy
- NPO- meds via PEG tube; speech deems high risk of aspiration
-Hgb stable at 8.5
- tube feeds
- BMP mag phos in 5 days
#Hyponatremia, consistent with SIADH,
-Na+ now 128 from 127 yesterday, Urine osmolality 531
- received hypertonic saline per nephrology
- could be from SNRI or lung cancer recurrence, will require follow-up outpatient
- nephrology following, follow-up recommendations: no additonal 3% saline today
# Leukocytosis
- WBC 14
# Acute urinary retention
- lam
- will need outpatient urology follow-up
# Hypertension
-Continue Losartan 100mg
# Acute COPD exacerbation due to continued tobacco use
- She is on albuterol/ipratropium, inhaled budesonide
- 1ppd since she was a child
# Acute hypoxic respiratory failure - resolved
- Initial O2sat 66%
- Supplemental O2 for targeting 88-92%
- On 4L, O2 sat 91%
# Nonischemic myocardial injury
- Elevated troponin but nonspecific EKG changes
- most likely in the setting of acute exacerbation of COPD leading to demand stress.
- troponin has decreased
- Echo on 11/27: LVEF 59%; RV dilated, Mild to moderate AR, mild TR.
- Continue atorvastatin 40mg, aspirin 81mg PO
# Likely Stage 2 pressure sacral deep tissue injury that was present on admission
- this is likely stage 2 because wound care note on 12/04 states that it is stage 2, please follow wound care isntructions upon discharge
Diet - Jevity 1.5 with PEG tube
Dispo- discharge today to [facility]
Anticipated Discharge: Today
Subjective/Interval History
-
Date of Service: December 11, 2024
feels well
Objective Data
-
Labs:
Laboratory Results
12/11/24
06:00
WBC Pending
Hgb Pending
Hct Pending
Plt Count Pending
Sodium Pending
Potassium Pending
Chloride Pending
Carbon Dioxide Pending
BUN Pending
Creatinine Pending
Glucose Pending
Calcium Pending
WBC 14
Hgb 8.5
Na+ 128 from 127
Vital Signs:
Vital Signs
Temp Pulse Resp BP Pulse Ox
97.8 F 98 18 133/74 95
12/10/24 23:36 12/10/24 23:36 12/10/24 23:36 12/10/24 23:36 12/10/24 23:36
I&O
12/10/24 12/11/24 12/12/24
06:59 06:59 06:59
Intake Total 1969 / 1969 605 / 605
Output Total 0 / 0 875 / 875
Balance -580 / -580 -270 / -270
Review of Systems
-
History Source: Patient
Constitutional: Reports No Symptoms
Respiratory: Reports Cough
Cardiac: Reports No Symptoms
Abdomen/GI: Reports Diarrhea
Genitourinary: Reports No Symptoms
Musculoskeletal: Reports No Symptoms
Skin: Reports No Symptoms
Neuro: Reports No Symptoms
Physical Exam
-
General: Cachectic
HEENT: Atraumatic
Respiratory: Clear to Auscultation
Cardiac: Regular Rhythm
GI: Soft, Nondistended, Flat and Peg Tube (no active bleeding)
Genito-urinary: Other (catheter)
Musculoskeletal: No Edema
Skin: Warm and Dry
Neuro: Awake
Psych: Calm
[2024-12-11 07:27] LABS: Hematocrit 26.1 % (37.0-47.0); Hemoglobin 8.5 g/dL (12.0-16.0); Mean Corp Hgb Conc. 32.6 g/dL (33.0-37.0); Mean Corpuscular Volume 86.1 fL (81.0-99.0); Nucleated Red Blood Cells % 0 %; Platelet Count 240 10^3/uL (130-400); Red Cell Dist. Width 18.6 % (11.5-14.5)
[2024-12-11] MEDS: SPIRIVA RESPIMAT 2.5 MCG 2 PUFF INH (08:08)
[2024-12-11] MEDS: SYMBICORT 160/4.5 MCG INHALER 2 PUFF INH (08:08)
[2024-12-11 08:12] LABS: Blood Urea Nitrogen 21 mg/dl (7-17); Calcium 8.2 mg/dl (8.4-10.2); Carbon Dioxide 34 mmol/L (22-30); Chloride 91 mmol/L (98-107); Estimated Creatinine Clearance 54 ml/min; Glucose 111 mg/dl (70-99); Magnesium 2.2 mg/dl (1.6-2.3); Potassium 4.1 mmol/L (3.5-5.1); Sodium 128 mmol/L (135-145); eGFR > 60.00
[2024-12-11] MEDS: NICODERM TRANSDERMAL 14 MG TRANSDERM (08:33)
[2024-12-11] MEDS: ROBITUSSIN 100 MG TUBE ×2 (08:33→11:56)
[2024-12-11] MEDS: VITAMIN B1 100 MG TUBE (08:34)
[2024-12-11] MEDS: PREVACID 30 MG TUBE (08:34)
[2024-12-11] MEDS: COZAAR 100 MG TUBE (08:34)
[2024-12-11] MEDS: LOW STRENGTH ASPIRIN 81 MG TUBE (08:34)
[2024-12-11] MEDS: LYRICA 50 MG TUBE (08:34)
[2024-12-11] MEDS: XANAX 0.5 MG TUBE (08:34)
[2024-12-11] MEDS: MIRALAX TUBE (08:35)
--- NOTE | 2024-12-11 08:50 | CM ---
MD indicated discharge for today.
spoke with patient she is in agreement with SNF at [facility].
Update sent via care port to [facility] .
Joana From [facility] can accept patient today. notified .
Sister Kaitlin aware and in agreement to [facility]
Medical nec form completed .
[facility]
report [phone]
fax [phone]
PLAN To [facility] .
[2024-12-11 11:15] VITALS: BP 155/80
--- NOTE | 2024-12-11 11:21 | WOUNDNOTE ---
SACRAL WOUND 1958m [id number]
--- NOTE | 2024-12-11 11:22 | WOUNDNOTE ---
[facility] RN NOTE: Patient visited prior to discharge to follow up on sacral coccyx wound. Wound appears paper cleaner than past assessment. Wound was cleaned today and silicone sacral foam applied. Honey gel may be resumed at [facility] and has been added to
discharge orders. Patient remains on properly inflated air overlay and tube feedings. Patient needs assistance turning. Heels intact and off-loaded with pillows under calves. Patient has several comorbidities including BMI of 13.6. Wounds may worsen
and new wounds may develop even with optimal care. LUIZ Crisostomo given update. Plan is for discharge to SNF today.
--- NOTE | 2024-12-11 11:35 | W.PN.NEPH.PH ---
Today's Communication / Plan
-
Maintain low volume free water flush
Sodium stable at 128
Assessment/Plan
-
Impression:
Hyponatremia (urine osm 531)
Acute hypoxic respiratory failure with underlying COPD exacerbation and/or aspiration pneumonia
Dysphagia status post PEG placement on 12/05/2024 with postoperative bleeding and anemia
Urinary retention
Sacral decub
Hypertension
Seizure disorder
Nonischemic myocardial injury
Hypoalbuminemia
History of brain cancer status postresection
History of lung cancer (left upper lobe resection in 2018 with prior radiation and chemo and recurrence with mets to brain
Chronic pain with chronic narcotic use
Plan:
Hyponatremia:
-Sodium of 128 down from 130
-If sodium drops further we will provide hypertonic saline as she is n.p.o. and on PEG feeds
- Likely consistent with SIADH given elevated urine osmolality ( urine osm 541) with history of seizure disorder(on divalproex) SSRI administration in ,malignancy, and pain,
- Olea now in with ~ 1 L output
HTN
- Maintain losartan for hypertension control
-
-
Date of Service: December 11, 2024
CC / HPI / ROS
-
Chief Complaint:
Hyponatremia
History of Present Illness:
Serum sodium stable at 128
On tube feeding with 5 cc/h fluid water flush
Blood pressure stable on losartan
Review of Systems:
Significant allover body pain
Nonoliguric via Olea
No fever
Weight down
Labs
-
Labs:
WBC 14.0 10^3/uL (4.8-10.8) H 12/11/24 06:00
RBC 3.03 10^6/uL (4.20-5.40) L 12/11/24 06:00
Hgb 8.5 g/dL (12.0-16.0) L 12/11/24 06:00
Hct 26.1 % (37.0-47.0) L 12/11/24 06:00
Plt Count 240 10^3/uL (130-400) 12/11/24 06:00
Sodium 128 mmol/L (135-145) L 12/11/24 06:00
Potassium 4.1 mmol/L (3.5-5.1) 12/11/24 06:00
Chloride 91 mmol/L (98-107) L 12/11/24 06:00
Carbon Dioxide 34 mmol/L (22-30) H 12/11/24 06:00
BUN 21 mg/dl (7-17) H 12/11/24 06:00
Creatinine 0.3 mg/dL (0.6-1.0) L 12/11/24 06:00
eGFR > 60.00 12/11/24 06:00
Glucose 111 mg/dl (70-99) H 12/11/24 06:00
Calcium 8.2 mg/dl (8.4-10.2) L 12/11/24 06:00
Phosphorus 3.6 mg/dl (2.5-4.5) 12/11/24 06:00
Rdy-A-Wpifnikayyh Pept 951 pg/ml 12/03/24 07:24
Albumin 3.0 g/dl (3.5-5.0) L 12/06/24 06:20
Physical Exam
-
Vital Signs:
Vital Signs
Temp Pulse Resp BP Pulse Ox
97.7 F 103 18 155/80 96
12/11/24 11:15 12/11/24 11:15 12/11/24 11:15 12/11/24 11:15 12/11/24 11:15
Cardiovascular:: Regular rate and rhythm
Respiratory:: Bilateral: Coarse
Lung Excursion:: Normal
Abdomen:: Nontender and Soft
Bowel Sounds:: Normal
Extremity Edema:: None: Bilateral:
Olea Catheter: Yes
Other Findings::
gen: advanced cachexia
[2024-12-11 11:41] LABS: Glucose - Point of Care 134 mg/dl (70-99)
--- NOTE | 2024-12-11 15:23 | W.DCSUMMARY ---
Documented by User: Prabhakar Linares MD, Resident 12/11/24 15:58
Discharge Summary
Discharge Data
Date of Admission: 11/26/24
Date of Discharge: 12/11/24
-
Pending Results: No
Hospital Course
Discharging Physician : �Kieran Bernstein, Prabhakar Linares
Disposition : SNF
Primary care physician :
Principal Discharge diagnosis : chronic malnutrition s/p PEG tube, acute exacerbation of COPD c/b acute hypoxic respiratory failure
Chronic Discharge diagnosis : depression/anxiety, chronic pain, Seizure, CVA, Hx lung cancer, Hx brain cancer
Hospital Course :
64 yo F who initially presented with dyspnea and cough. Initial VS n/f tachycardia to 104, hypoxic with O2 sat 66%, RR 16, BP 125/75.�
The following problems were addressed during this admission
# Acute hypoxemic respiratory failure
- Initial presentation was concerning for respiratory failure that required supplemental oxygen given hypoxemia
- Etiology is likely acute exacerbation of COPD and aspiration pneumonia given pharyngeal dysfunction, and ongoing active smoking (1ppd since childhood)
- Supplemental oxygen was weaned to ultimately target 88-94%
- She will need supplemental oxygen upon discharge.�
- She has been instructed to follow-up with Pulmonology
# Acute exacerbation of COPD
- presentation of dyspnea, productive cough were consistent with an acute exacerbation of COPD
- She is a chronic smoker with ongoing active smoking.
- she is receiving albuterol/ipratropium and budesonide inhaled
- She also completed a steroid taper during her admission
- she has been discharged on symbicort at [facility] inhalers
# Severe dysphagia s/p PEG tube
# Severe protein calorie malnutrition
# Severe dysphagia
- The patient should maintain NPO and receive all meds through PEG tube because she is at high risk of aspiration per speech evaluation
-�Dobhoff tubes x2 failed attempts
- PEG tube placed 12/05/2024
- Tube�feeds with Jevity 1.5 at 45 cc/hr
- Reassuringly, she has not developed refeeding syndrome
- She has been instructed to follow-up with gastroenterology
- She has been instructed to repeat CBC, BMP/Mg/Phos within 5-7 days
# Aspiration pneumonia due to severe dysphagia, likely present on admission
- It is believed that she had aspiration pneumonia prior to or present on this admission
- She completed a course of ampicillin/sulbactam for 7 days (11/26-12/03)
- Her WBC trend has increased and decreased over the course of admission (in part attributed to leukocytosis from steroids); however, she has been afebrile and oxygen saturation > 90% throughout.
# Hyponatremia, SIADH
- During the admission, her Na+ levels had decreased to a low of 122
- Urine osmolality > 500 was consistent with SIADH
- She received hypertonic saline IV
- SNRI was decreased in dose given the association with SIADH with eventual plan to discontinue; her prior history of brain cancer and lung cancer also raise the possibility of paraneoplastic process
- She will require outpatient follow-up to manage the chronic conditions that may predispose her to SIADH
- The free water content of her tube feeds was adjusted, per nutrition and nephrology, as well
# Acute urinary retention
- During the admission, she experienced acute urinary retention, likely attributed to cachexia
- She failed multiple trial voids and will be discharged on a lam catheter
- She will follow-up with urology
# Non-ischemic myocardial injury
- Her troponins were elevated near the beginning of her admission
- However, EKG was reassuring against signs of ischemia
- Etiology is likely non-ischemic myocardial injury due to acute exacerbation of COPD and respiratory failure
# Hypertension
- Per cardiology, she was started on losartan 25mg
- Given consistently elevated blood pressure during the admission, her dose was increased to 50mg
# Chronic issues per below
# Chronic pain syndrome with narcotic dependence:��duloxetine has been decreased from 80mg to 20mg with plans to discontinue it due to association with SIADH.
# Seizure - divalproex�
# Stage II pressure sacral deep tissue injury - please follow-up with wound care instruction
Important imaging findings :
CXR 11/26/2024:
FINDINGS: There are vertical linear densities within the medial aspect of both lungs and there appears to be slight retraction of the left hilar shadow superiorly. Findings would be suggestive of changes of radiation therapy, and please correlate
clinically.
There is mild blunting of the lateral and posterior costophrenic angles bilaterally, suggesting small bilateral pleural effusions.
Parenchymal opacity within the left lower lung, with main differential considerations of atelectasis and/or pneumonia.
Cardiac silhouette size is probably within normal limits, with no convincing evidence for pulmonary edema pattern.
Calcification and tortuosity of the thoracic aorta.
Multiple compression deformities within the upper to mid thoracic spine, somewhat poor endplate definition on the lateral radiograph.
IMPRESSION:
With no recent comparison examination available, limited evaluation in this patient with a history of lung cancer, and possible previous treatment.
CXR 11/28/2024:
FINDINGS:
Lines/Tubes/Devices: None
Lungs/Pleura: Again seen are striated opacities within the medial upper lobes, possibly reflective of scarring or radiation fibrosis. There are small bilateral pleural effusions. No focal alveolar airspace consolidation. No pneumothorax.
Mediastinum/Heart: Cardiac silhouette is unchanged. Scattered calcified plaque within the thoracic aorta.
Bones: Diffuse osteopenia. Again seen are several compression deformities within the mid thoracic spine.
IMPRESSION:
Small bilateral pleural effusions.
Nonspecific opacities within the medial lung apices, possibly scarring or post radiation changes.
CXR 12/03/2024:
FINDINGS:
Lines/Tubes/Devices: None
Lungs/Pleura: Unchanged small bilateral pleural effusions. Again seen are some nonspecific linear opacities within the medial aspect of both upper lobes, possibly radiation changes. No focal areas of alveolar airspace disease. No pneumothorax.
Mediastinum/Heart: Unchanged. Scattered calcified plaques within the thoracic arch.
Bones: No gross osseous abnormality.
IMPRESSION:
Unchanged small bilateral pleural effusions. See above.
Abdomen x-ray 12/03/2024:
FINDINGS:
Bowel: Intestinal bowel gas pattern is grossly nonobstructive.
Soft tissues: Nasogastric tube is seen with tip in the proximal stomach.
Osseous structures: Osseous degenerative changes are noted.
IMPRESSION:
Nasogastric tube with tip in proximal stomach. Suggest further passage of nasogastric tube into the more distal body of stomach.
Abdomen x-ray 12/03/2024:
FINDINGS:
Bowel: Majority of intestinal tract not included on the image. Nasogastric tube is seen with tip in the mid stomach just slightly more distally positioned in comparison to study earlier in same day.
CHEST: Limited as a result of respiratory motion artifact. Possible small left pleural effusion.
Osseous structures: Grossly intact.
IMPRESSION:
Nasogastric tube with tip in the mid stomach just slightly more distally positioned in comparison to study earlier in same day.
CXR 12/05/2024:
FINDINGS: Small bilateral pleural effusions are without significant change. Linear opacities in the medial portion of each upper lobe. These are stable, and likely represent scarring. There is unchanged retrocardiac opacity. No pneumothorax.
Calcification of thoracic aorta. Stable heart size
IMPRESSION:
Small bilateral pleural effusions are unchanged.
What likely represents scarring in the upper lobes is unchanged.
No new radiographic abnormality of the chest
Procedure findings :
EKG 11/26/2024:
Vent. Rate : 88 BPM Atrial Rate : 88 BPM
P-R Int : 128 ms QRS Dur : 76 ms
QT Int : 370 ms P-R-T Axes : 87 0 30 degrees
QTcB Int : 447 ms
NORMAL SINUS RHYTHM
ANTERIOR INFARCT , AGE UNDETERMINED
ABNORMAL ECG
WHEN COMPARED WITH ECG OF 01-Jul-2013 12:12,
NONSPECIFIC T WAVE ABNORMALITY NOW EVIDENT IN INFERIOR LEADS
T WAVE INVERSION NOW EVIDENT IN ANTERIOR LEADS
Echocardiogram 11/27/2024:
SUMMARY
1. Ejection fraction is 59% by volumetric assesment.
2. Right ventricular cavity size is moderately dialted.
3. Right ventricular systolic function is within normal limits.
4. Thickened aortic valve with normal leaflet excursion. There is mild-moderate aortic valve regurgitation.
5. Mild tricuspid regurgitation.
6. Pleural effusion is noted.
EKG 11/28/2024:
Vent. Rate : 81 BPM Atrial Rate : 81 BPM
P-R Int : 120 ms QRS Dur : 84 ms
QT Int : 376 ms P-R-T Axes : 51 -26 19 degrees
QTcB Int : 436 ms
NORMAL SINUS RHYTHM
MINIMAL VOLTAGE CRITERIA FOR LVH, MAY BE NORMAL VARIANT ( Aldie product )
BORDERLINE ECG
WHEN COMPARED WITH ECG OF 26-Nov-2024 13:58,
T WAVE INVERSION NO LONGER EVIDENT IN ANTERIOR LEADS
Discharge Plan
-
Patient Disposition: [facility]/SNF
Discharge Diagnosis/Procedures: Severe dysphagia, malnutrition s/p PEG tube, acute exacerbation of COPD
Condition: Fair
Diet: Tube feeding
Additional Diets: 5 ml free water flush per hour
Activity: As tolerated
Driving Restrictions: No driving
Bathing Restrictions: None
Blood Work: BMP, Mag, Phos, CBC in 5-7 days
Other Services: PT
Activity Restrictions/Additional Instructions:
Wound Care Instructions Sacrum- Clean with saline, apply honey gel to open area and cover with 5 layer silicone border foam. Change Q 48 hours and PRN if soiled.
Air surface/static air overlay
Encourage frequent turning and repositioning
Keep heels off-loaded with pillow or air cushion under calves
Air cushion to chair
Referrals:
Aby Paredes CRNP [Specified Professional Personl, Urology] - in one to two weeks
Referral Note: call to schedule outpatient visit during early December
Manuel Quintanilla MD [Active, Gastroenterology] - in three to four weeks
Referral Note: follow up with OCC THERAPIST with Dr Quintanilla for tube check in 3-4 weeks. Call for any questions or problems
Caleb Georges MD [Active, Pulmonary Medicine] - in one to two weeks
Additional Discharge Medication Instructions: Please change all of your medications to be taken via PEG tube as specified below.
Please note that valproic acid has been CHANGED from by mouth to a syrup form to be given via TUBE.
Please also note that your duloxetine dose has been reduced to 20 mg daily due to SIADH. Should be discontinued after 1 week.
You should NOT take anything by mouth, according to speech evaluation.
Feeding tube diet instruction: Jevity 1.5 at 45 mL/hr with 10mL/hr flush to provide in 990 mL.
Here is a summary of the medications you should be taking via PEG tube:
- alprazolam 0.5mg three times a day
- aspirin 81mg daily
- atorvastatin 40mg daily
- lansoprazole 30mg
- oxycodone 5mg/5mL solution 7.5mg q6h prn
- pregabalin 50mg twice daily
- tamsulosin 0.4mg daily
- thiamine 100mg daily
- tizanidine 4mg daily
- trazodone 150mg daily
- valproic acid solution syrup 250mg q6h
Here are your inhalers that you should be taking daily
- Symbicort
- Spiriva
In addition, you have been discharged with a Lam catheter.
Your wound care instructions are specified above.
Please follow-up with Gastroenterology, Pulmonary Medicine, and Urology.
Prescriptions:
New
atorvastatin 40 mg Tablet
40 mg feeding tube QPM Qty: 30 0RF
aspirin 81 mg Tablet,Chewable
81 mg feeding tube DAILY Qty: 30 0RF
losartan 100 mg Tablet
100 mg feeding tube DAILY Qty: 30 0RF
budesonide-formoterol [Symbicort] 160-4.5 mcg/actuation Hfa Aerosol Inhaler
2 puff inhalation R BID Qty: 1 0RF
[facility] Respimat 2.5 mcg/actuation Mist
2 puff inhalation R DAILY Qty: 1 0RF
lansoprazole 30 mg Tablet,Disintegrat, Delay Rel
30 mg feeding tube DAILY Qty: 30 0RF
thiamine mononitrate (vit B1) 100 mg Tablet
100 mg feeding tube DAILY Qty: 30 0RF
tizanidine 4 mg Tablet
4 mg feeding tube HS Qty: 30 0RF
tamsulosin 0.4 mg Capsule
0.4 mg feeding tube HS Qty: 30 0RF
trazodone 100 mg Tablet
150 mg feeding tube HS Qty: 30 0RF
valproic acid (as sodium salt) 250 mg/5 mL (5 mL) Solution
250 mg feeding tube Q6 Qty: 600 0RF
pregabalin 50 mg capsule
50 mg feeding tube BID 30 Days Qty: 60 0RF
oxycodone 5 mg/5 mL solution
7.5 mg PO Q6H PRN (Reason: severe pain) 7 Days Qty: 100 0RF
alprazolam 0.5 mg tablet
0.5 mg PO TID PRN (Reason: anxiety) 7 Days Qty: 20 0RF
duloxetine 20 mg Capsule,Delayed Release(Dr/Ec)
20 mg feeding tube DAILY 7 Days Qty: 7 0RF
Continued
albuterol sulfate 90 mcg/actuation Hfa Aerosol Inhaler
2 puff INHALATION R Q6HPRN PRN (Reason: sob)
Discontinued
megestrol 400 mg/10 mL (40 mg/mL) Suspension
200 mg PO DAILY
tizanidine 4 mg Tablet
4 mg PO HS
alprazolam [Xanax] 0.5 mg Tablet
0.5 mg PO QID
trazodone 150 mg Tablet
150 mg PO HS
divalproex 125 mg Capsule, Delayed Rel Sprinkle
500 mg PO BID
duloxetine [Cymbalta] 20 mg Capsule,Delayed Release(Dr/Ec)
20 mg PO DAILY
duloxetine [Cymbalta] 60 mg Capsule,Delayed Release(Dr/Ec)
60 mg PO DAILY
pregabalin [Lyrica] 50 mg Capsule
50 mg PO BID
oxycodone 10 mg Tablet
10 mg PO Q6HPRN PRN (Reason: severe pain)
Discharge Orders:
Discharge Patient (As Directed); Ordered 12/11/24
Ordered By: Kieran Bernstein
Discharge Date and Time
Discharge Date/Time: 12/11/24 13:33
Print Language: TAIWANESE

Documented by User: Kieran Bernstein DO 12/11/24 17:23
Discharge Summary
Discharge Data
Date of Admission: 11/26/24
Date of Discharge: 12/11/24
Total time spent discharging patient (in min): 35
Discharge Plan
-
Patient Disposition: [facility]
Discharge Diagnosis/Procedures: Severe dysphagia, malnutrition s/p PEG tube, acute exacerbation of COPD
Condition: Fair
Diet: Tube feeding
Additional Diets: 5 ml free water flush per hour
Activity: As tolerated
Driving Restrictions: No driving
Bathing Restrictions: None
Blood Work: BMP, Mag, Phos, CBC in 5-7 days
Other Services: PT
Activity Restrictions/Additional Instructions:
Wound Care Instructions Sacrum- Clean with saline, apply honey gel to open area and cover with 5 layer silicone border foam. Change Q 48 hours and PRN if soiled.
Air surface/static air overlay
Encourage frequent turning and repositioning
Keep heels off-loaded with pillow or air cushion under calves
Air cushion to chair
Referrals:
Aby Paredes CRNP [Specified Professional Personl, Urology] - in one to two weeks
Referral Note: call to schedule outpatient visit during early December
Manuel Quintanilla MD [Active, Gastroenterology] - in three to four weeks
Referral Note: follow up with OCC THERAPIST with Dr Quintanilla for tube check in 3-4 weeks. Call for any questions or problems
Caleb Georges MD [Active, Pulmonary Medicine] - in one to two weeks
Additional Discharge Medication Instructions: Please change all of your medications to be taken via PEG tube as specified below.
Please note that valproic acid has been CHANGED from by mouth to a syrup form to be given via TUBE.
Please also note that your duloxetine dose has been reduced to 20 mg daily due to SIADH. Should be discontinued after 1 week.
You should NOT take anything by mouth, according to speech evaluation.
Feeding tube diet instruction: Jevity 1.5 at 45 mL/hr with 10mL/hr flush to provide in 990 mL.
Here is a summary of the medications you should be taking via PEG tube:
- alprazolam 0.5mg three times a day
- aspirin 81mg daily
- atorvastatin 40mg daily
- lansoprazole 30mg
- oxycodone 5mg/5mL solution 7.5mg q6h prn
- pregabalin 50mg twice daily
- tamsulosin 0.4mg daily
- thiamine 100mg daily
- tizanidine 4mg daily
- trazodone 150mg daily
- valproic acid solution syrup 250mg q6h
Here are your inhalers that you should be taking daily
- Symbicort
- Spiriva
In addition, you have been discharged with a Lam catheter.
Your wound care instructions are specified above.
Please follow-up with Gastroenterology, Pulmonary Medicine, and Urology.
Prescriptions:
New
atorvastatin 40 mg Tablet
40 mg feeding tube QPM Qty: 30 0RF
aspirin 81 mg Tablet,Chewable
81 mg feeding tube DAILY Qty: 30 0RF
losartan 100 mg Tablet
100 mg feeding tube DAILY Qty: 30 0RF
budesonide-formoterol [Symbicort] 160-4.5 mcg/actuation Hfa Aerosol Inhaler
2 puff inhalation R BID Qty: 1 0RF
[facility] Respimat 2.5 mcg/actuation Mist
2 puff inhalation R DAILY Qty: 1 0RF
lansoprazole 30 mg Tablet,Disintegrat, Delay Rel
30 mg feeding tube DAILY Qty: 30 0RF
thiamine mononitrate (vit B1) 100 mg Tablet
100 mg feeding tube DAILY Qty: 30 0RF
tizanidine 4 mg Tablet
4 mg feeding tube HS Qty: 30 0RF
tamsulosin 0.4 mg Capsule
0.4 mg feeding tube HS Qty: 30 0RF
trazodone 100 mg Tablet
150 mg feeding tube HS Qty: 30 0RF
valproic acid (as sodium salt) 250 mg/5 mL (5 mL) Solution
250 mg feeding tube Q6 Qty: 600 0RF
pregabalin 50 mg capsule
50 mg feeding tube BID 30 Days Qty: 60 0RF
oxycodone 5 mg/5 mL solution
7.5 mg PO Q6H PRN (Reason: severe pain) 7 Days Qty: 100 0RF
alprazolam 0.5 mg tablet
0.5 mg PO TID PRN (Reason: anxiety) 7 Days Qty: 20 0RF
duloxetine 20 mg Capsule,Delayed Release(Dr/Ec)
20 mg feeding tube DAILY 7 Days Qty: 7 0RF
Continued
albuterol sulfate 90 mcg/actuation Hfa Aerosol Inhaler
2 puff INHALATION R Q6HPRN PRN (Reason: sob)
Discontinued
megestrol 400 mg/10 mL (40 mg/mL) Suspension
200 mg PO DAILY
tizanidine 4 mg Tablet
4 mg PO HS
alprazolam [Xanax] 0.5 mg Tablet
0.5 mg PO QID
trazodone 150 mg Tablet
150 mg PO HS
divalproex 125 mg Capsule, Delayed Rel Sprinkle
500 mg PO BID
duloxetine [Cymbalta] 20 mg Capsule,Delayed Release(Dr/Ec)
20 mg PO DAILY
duloxetine [Cymbalta] 60 mg Capsule,Delayed Release(Dr/Ec)
60 mg PO DAILY
pregabalin [Lyrica] 50 mg Capsule
50 mg PO BID
oxycodone 10 mg Tablet
10 mg PO Q6HPRN PRN (Reason: severe pain)
Discharge Orders:
Discharge Patient (As Directed); Ordered 12/11/24
Ordered By: Kieran Bernstein
Discharge Date and Time
Discharge Date/Time: 12/11/24 13:33
Print Language: TAIWANESE
== END 2024-12-11 13:33 | DRG 177 ==
LOC: 4 EAST ACU 18:15
PROVIDERS: Family Medicine; Internal Medicine; Nurse Practitioner; Nurse Practitioner Adult Health; Nurse Practitioner Family; Nurse Practitioner Gerontology; Physician Assistant; Surgery; ADMITTING PHYSICIAN Internal Medicine; ATTENDING PHYSICIAN Internal Medicine; CONSULT PHYSICIAN Internal Medicine; CONSULT PHYSICIAN Specialist; EMERGENCY PHYSICIAN Emergency Medicine; OTHER PHYSICIAN Internal Medicine; OTHER PHYSICIAN Internal Medicine Cardiovascular Disease; OTHER PHYSICIAN Internal Medicine Critical Care Medicine; OTHER PHYSICIAN Specialist
PROC: 0DH63UZ Insertion of Feeding Device into Stomach, Percutaneous Approach (ICD-10-PCS; 2024-12-05)
PROC: 30233N1 Transfusion of Nonautologous Red Blood Cells into Peripheral Vein, Percutaneous Approach (ICD-10-PCS; 2024-12-07)
DX: J69.0 Pneumonitis due to inhalation of food and vomit (principal); E43 Unspecified severe protein-calorie malnutrition; J96.01 Acute respiratory failure with hypoxia; J44.0 Chronic obstructive pulmonary disease with (acute) lower respiratory infection; Z68.1 Body mass index [BMI] 19.9 or less, adult; I5A Non-ischemic myocardial injury (non-traumatic); R64 Cachexia; E22.2 Syndrome of inappropriate secretion of antidiuretic hormone; F11.20 Opioid dependence, uncomplicated; F13.20 Sedative, hypnotic or anxiolytic dependence, uncomplicated; J44.1 Chronic obstructive pulmonary disease with (acute) exacerbation; D62 Acute posthemorrhagic anemia; Z66 Do not resuscitate; G40.909 Epilepsy, unspecified, not intractable, without status epilepticus; F17.210 Nicotine dependence, cigarettes, uncomplicated; R26.89 Other abnormalities of gait and mobility; I50.9 Heart failure, unspecified; I11.0 Hypertensive heart disease with heart failure; R33.9 Retention of urine, unspecified; E88.09 Other disorders of plasma-protein metabolism, not elsewhere classified; K94.21 Gastrostomy hemorrhage; L89.152 Pressure ulcer of sacral region, stage 2; Y83.1 Surgical operation with implant of artificial internal device as the cause of abnormal reaction of the patient, or of later complication, without mention of misadventure at the time of the procedure; Z60.2 Problems related to living alone; K59.00 Constipation, unspecified; G89.4 Chronic pain syndrome; F41.9 Anxiety disorder, unspecified; F32.A Depression, unspecified; R13.12 Dysphagia, oropharyngeal phase; Z11.52 Encounter for screening for COVID-19; Z79.51 Long term (current) use of inhaled steroids; Z79.899 Other long term (current) drug therapy; Z85.118 Personal history of other malignant neoplasm of bronchus and lung; Z85.841 Personal history of malignant neoplasm of brain; Z86.73 Personal history of transient ischemic attack (TIA), and cerebral infarction without residual deficits; Z92.21 Personal history of antineoplastic chemotherapy; Z92.3 Personal history of irradiation
CPT/HCPCS: 71045; 71046; 74018; 74230; 80048; 80053; 80061; 82533; 82805; 82962; 83036; 83735; 83880; 83930; 83935; 84100; 84300; 84439; 84443; 84484; 85014; 85018; 85025; 85027; 85610; 86850; 86900; 86901; 86920; 87040; 87502; 87811; 92526; 92610; 92611; 93005; 93306; 94060; 94640; 96374; 97163; 97166; 97530; 97535; 99285; P9016

== ENCOUNTER → 2024-12-17 11:31 | Outpatient (REF) | payer OTHER, MEDICARE, BC, SELFPAY ==
[2024-12-17 12:35] LABS: Hematocrit 26.8 % (37.0-47.0); Hemoglobin 8.6 g/dL (12.0-16.0); Mean Corp Hgb Conc. 32.1 g/dL (33.0-37.0); Mean Corpuscular Volume 88.4 fL (81.0-99.0); Platelet Count 313 10^3/uL (130-400); Red Cell Dist. Width 19.5 % (11.5-14.5)
[2024-12-17 12:58] LABS: ALT (SGPT) 19 U/L (0-35); AST (SGOT) 26 U/L (14-36); Albumin 3.0 g/dl (3.5-5.0); Alkaline Phosphatase 107 U/L (38-126); Blood Urea Nitrogen 25 mg/dl (7-17); Calcium 8.2 mg/dl (8.4-10.2); Carbon Dioxide 35 mmol/L (22-30); Chloride 90 mmol/L (98-107); Glucose 95 mg/dl (70-99); Magnesium 2.1 mg/dl (1.6-2.3); Potassium 3.8 mmol/L (3.5-5.1); Sodium 130 mmol/L (135-145); Total Protein 6.1 g/dl (6.3-8.2); eGFR > 60.00
== END ==
LOC: OLABP 11:31
PROVIDERS: ATTENDING PHYSICIAN Family Medicine
DX: J96.01 Acute respiratory failure with hypoxia (principal); J44.9 Chronic obstructive pulmonary disease, unspecified; E43 Unspecified severe protein-calorie malnutrition; E87.1 Hypo-osmolality and hyponatremia; E88.09 Other disorders of plasma-protein metabolism, not elsewhere classified; F32.A Depression, unspecified; F41.9 Anxiety disorder, unspecified; G40.909 Epilepsy, unspecified, not intractable, without status epilepticus; I10 Essential (primary) hypertension; L89.153 Pressure ulcer of sacral region, stage 3; R13.10 Dysphagia, unspecified; R33.9 Retention of urine, unspecified; Z43.1 Encounter for attention to gastrostomy; J69.0 Pneumonitis due to inhalation of food and vomit
CPT/HCPCS: 36415; 80053; 83735; 84100; 85027